=== PATIENT | female | born 1960 | race Caucasian/White ===

== ENCOUNTER 2018-01-20 10:42 | Outpatient (CLI) | payer OTHER ==
[2018-01-20 18:58] LABS: BASOPHILS % (AUTO) 0.8 %; EOSINOPHILS % (AUTO) 0.5 %; HGB - HEMOGLOBIN 14.5 g/dL (12.0-16.0); LYMPHOCYTES # (AUTO) 1.5 10^3/uL (1.5-3.5); LYMPHOCYTES % (AUTO) 32.9 %; MEAN CORPUSCULAR HEMOGLOBIN 38.6 pg (27.0-31.0); MEAN CORPUSCULAR VOLUME 113.7 fL (81.0-99.0); MEAN PLATELET VOLUME 8.7 fL (7.9-10.8); MONOCYTES # (AUTO) 0.5 10^3/uL (0.0-1.0); MONOCYTES % (AUTO) 10.5 %; NEUTROPHILS # (AUTO) 2.6 10^3/uL (1.5-6.6); NEUTROPHILS % (AUTO) 55.3 %; PLT - PLATELET COUNT 185 10^3/uL (130-450); RED BLOOD COUNT 3.76 10^6/uL (4.20-5.40); RED CELL DISTRIBUTION WIDTH 14.5 % (12.0-15.0); WHITE BLOOD COUNT 4.7 x10^3/uL (4.8-10.8)
[2018-01-20 19:20] LABS: ALBUMIN 3.8 g/dL (3.2-5.5); ALBUMIN/GLOBULIN RATIO 1.1 (1.0-2.2); ALKALINE PHOSPHATASE 67 IU/L (42-121); ALT ALANINE AMINOTRANSFERASE 41 IU/L (10-60); AST ASPARTATE AMINOTRANSFERASE 56 IU/L (10-42); BILIRUBIN,TOTAL 1.4 mg/dL (0.2-1.0); BUN - BLOOD UREA NITROGEN 7 mg/dL (6-20); CARBON DIOXIDE - CO2 23 mmol/L (21-32); CHLORIDE 105 mmol/L (101-111); CHOL/HDL RATIO 2.1 (<4.4); CHOLESTEROL 218 mg/dL; CREATININE 0.4 mg/dL (0.4-1.0); GFR - MDRD 163 (>89); GLUCOSE 100 mg/dL (70-100); HDL CHOLESTEROL 104 mg/dL; LDL CHOLESTEROL,CALCULATED 85 mg/dL; LDL/HDL RATIO 0.8 (<4.4); PLATELET ESTIMATE, MANUAL NORMAL (130-450,000) (NORMAL); PLATELET MORPHOLOGY NORMAL APPEARANCE (NORMAL); RBC MORPHOLOGY (MULTIPLE) 1+ ANISOCYTOSIS (NORMAL); SODIUM 139 mmol/L (135-145); TOTAL PROTEIN 7.2 g/dL (6.7-8.2); VLDL CHOLESTEROL 29 mg/dL
[2018-01-20 19:22] LABS: THYROID STIMULATING HORMONE 2.58 uIU/mL (0.34-5.60)
[2018-01-20 19:33] LABS: FOLATE 12.98 ng/mL (5.90 - >24.8)
== END 2018-01-20 10:43 | disposition home or self-care (01) ==
LOC: LAB.WCP 10:42
PROVIDERS: ATTEND Physician Assistant Medical
DX: Z00.00 Encounter for general adult medical examination without abnormal findings (principal); F32.9 Major depressive disorder, single episode, unspecified; Z98.84 Bariatric surgery status
CPT/HCPCS: 36415; 80053; 80061; 82306; 82607; 82746; 83721; 84443; 85025

== ENCOUNTER 2018-01-23 15:52 | Outpatient (CLI) | payer OTHER ==
--- NOTE | 2018-01-24 17:38 | Mammography Report ---
Reason: SCREENING MAMMO Procedure Date: 01/23/2018 Accession Number: [id number] / [id number] Procedure: SHAILESH - Screening Mammo Dig Bilat CPT Code: FULL RESULT: EXAM: Screening Mammo Dig Bilat DATE: 01/23/2018 4:15 PM CLINICAL HISTORY: 57 year-old nulliparous female with history of early menstrual period presents for screening. TECHNIQUE: Bilateral CC and MLO views were obtained. A cleavage view was also obtained. COMPARISON: 12/15/2014, 06/03/2009, 05/14/2008, 05/07/2007. FINDINGS: The breasts demonstrate scattered fibroglandular densities bilaterally. No suspicious masses, clustered microcalcifications, or regions of architectural distortion are identified. IMPRESSION: Negative examination RECOMMENDATION: Routine annual screening unless otherwise clinically indicated. BIRADS CATEGORY 1: Negative STANDARD QUALIFYING STATEMENTS: 1. This examination was not reviewed with the aid of Computer-Aided Detection (CAD). 2. A negative or benign imaging report should not delay biopsy if clinically suspicious findings are present. Consider surgical consultation if warrented. More than 5% of cancers are not identified by imaging. 3. Dense breasts may obscure an underlying neoplasm. 4. This examination was reviewed without the aid of 3D breast imaging (tomosynthesis).
== END 2018-01-23 15:53 | disposition home or self-care (01) ==
LOC: DI 15:52
DX: Z12.31 Encounter for screening mammogram for malignant neoplasm of breast (principal)
CPT/HCPCS: 77067

== ENCOUNTER → 2018-03-05 | Outpatient (CLI) | payer OTHER ==
[2018-03-05 19:08] LABS: ALBUMIN 3.6 g/dL (3.2-5.5); ALBUMIN/GLOBULIN RATIO 1.1 (1.0-2.2); BILIRUBIN,TOTAL 0.7 mg/dL (0.2-1.0); CALCIUM 8.8 mg/dL (8.5-10.3); CREATININE 0.5 mg/dL (0.4-1.0)
== END ==
LOC: LAB.WCP 08:00
PROVIDERS: ATTEND Physician Assistant Medical
DX: R74.8 Abnormal levels of other serum enzymes (principal)
CPT/HCPCS: 36415; 80053

== ENCOUNTER 2019-04-16 13:18 | Outpatient (CLI) | payer OTHER ==
--- NOTE | 2019-04-20 09:28 | Mammography Report ---
Reason: SCREENING MAMMO Procedure Date: 04/16/2019 Accession Number: [id number] / [id number] Procedure: SHAILESH - Screening Mammo w/Pradeep CPT Code: Final Report FULL RESULT: EXAM: Screening Mammo w/Pradeep DATE: 04/16/2019 2:04 PM CLINICAL HISTORY: Screening encounter. History of early menses and nulliparity. TECHNIQUE: (B) - Bilateral CC, laterally exaggerated CC, MLO views were obtained. COMPARISON: 01/23/2018 through 06/03/2009. PARENCHYMAL PATTERN: (A) - The breast(s) demonstrate(s) scattered fibroglandular densities. FINDINGS: There are no suspicious masses, calcifications, or areas of distortion. IMPRESSION: Negative examination. BI-RADS category 1. RECOMMENDATION: (ANNUAL) - Recommend routine annual screening mammography. BI-RADS CATEGORY: (1) - Negative. STANDARD QUALIFYING STATEMENTS: 1. This examination was not reviewed with the aid of Computer-Aided Detection (CAD). 2. A negative or benign imaging report should not preclude biopsy if clinically suspicious findings are present. 3. Dense breasts may obscure an underlying neoplasm. 4. This examination was reviewed with the aid of 3D breast imaging (tomosynthesis).
== END 2019-04-16 13:19 | disposition home or self-care (01) ==
LOC: DI 13:18
DX: Z12.31 Encounter for screening mammogram for malignant neoplasm of breast (principal)
CPT/HCPCS: 77063; 77067

== ENCOUNTER 2020-05-03 12:37 | Outpatient (CLI) | payer OTHER ==
--- NOTE | 2020-05-04 12:28 | Mammography Report ---
BILATERAL DIGITAL SCREENING MAMMOGRAM 3D/2D: 05/03/2020 CLINICAL: Routine screening. Comparison is made to exams dated: 04/16/2019 mammogram and 01/23/2018 mammogram - [facility]. There are scattered fibroglandular elements in both breasts. No significant masses, calcifications, or other findings are seen in either breast. There has been no significant interval change. IMPRESSION: NEGATIVE There is no mammographic evidence of malignancy. A 1 year screening mammogram is recommended. This exam was interpreted at Station ID: [id number]. NOTE: For mammograms, a report in lay terms will be sent to the patient. Approximately 15% of breast malignancies will not be visualized mammographically. In the management of a palpable breast mass, a negative mammogram must not discourage biopsy of a clinically suspicious lesion. Electronically Signed By: Aman Samayoa M.D. ar/penrad:05/03/2020 13:11:53 ACR BI-RADS Category 1: Negative 3341F PARENCHYMAL PATTERN: (A) - The breast(s) demonstrate(s) scattered fibroglandular densities. BI-RADS CATEGORY: (1) - 1 RECOMMENDATION: (ANNUAL) - Recommend routine annual screening mammography. [id number] 1 year screening LATERALITY: (B)
== END 2020-05-03 12:38 | disposition home or self-care (01) ==
LOC: DI.N 12:37
DX: Z12.31 Encounter for screening mammogram for malignant neoplasm of breast (principal)
CPT/HCPCS: 77067

== ENCOUNTER 2021-06-29 14:11 | Outpatient (CLI) | payer OTHER ==
--- NOTE | 2021-06-30 08:38 | Mammography Report ---
BILATERAL DIGITAL SCREENING MAMMOGRAM 3D/2D: 06/29/2021 CLINICAL: Routine screening. Comparison is made to exams dated: 05/03/2020 mammogram, 04/16/2019 mammogram, 01/23/2018 mammogram, mammogram, and 06/03/2009 mammogram - [facility]. The tissue of both breasts is predominantly fatty. No significant masses, calcifications, or other findings are seen in either breast. There has been no significant interval change. IMPRESSION: NEGATIVE There is no mammographic evidence of malignancy. A 1 year screening mammogram is recommended. This exam was interpreted at Station ID: [id number]. NOTE: For mammograms, a report in lay terms will be sent to the patient. Approximately 15% of breast malignancies will not be visualized mammographically. In the management of a palpable breast mass, a negative mammogram must not discourage biopsy of a clinically suspicious lesion. Electronically Signed By: Lexi aguilar/penrad:06/29/2021 16:13:23 ACR BI-RADS Category 1: Negative 3341F PARENCHYMAL PATTERN: (F) - The breast(s) demonstrate(s) diffuse fatty replacement. BI-RADS CATEGORY: (1) - 1 RECOMMENDATION: (ANNUAL) - Recommend routine annual screening mammography. [id number] 1 year screening LATERALITY: (B)
== END 2021-06-29 14:12 | disposition home or self-care (01) ==
LOC: DI.N 14:11
DX: Z12.31 Encounter for screening mammogram for malignant neoplasm of breast (principal)

== ENCOUNTER 2022-03-07 22:39 | Outpatient (CLI) | payer OTHER | END 2022-03-07 22:40 | disposition critical access hospital (66) | LOC: EMS 22:39 | DX: M54.50 Low back pain, unspecified (principal); M54.6 Pain in thoracic spine; I95.9 Hypotension, unspecified; R07.89 Other chest pain; W10.8XXA Fall (on) (from) other stairs and steps, initial encounter; Y93.01 Activity, walking, marching and hiking; Y92.098 Other place in other non-institutional residence as the place of occurrence of the external cause | CPT/HCPCS: A0425; A0427 ==

== ENCOUNTER 2022-03-07 22:52 | Observation (INO) | payer OTHER ==
--- NOTE | 2022-03-07 23:37 | ED Physician Documentation ---
PD HPI Fall - Stated complaint Stated Complaint: FALL/BACK PX - Chief complaint Chief Complaint: Trauma Ch/Bk - History obtained from History obtained from: Patient, Family (spouse (in ED at bedside)) - History of Present Illness Mechanism of injury: Slipped Fall distance: Standing position, Other (fell down 4-5 stairs) Where injury occurred: A house / apartment Timing - onset: Enter time (18:00) Injury(ies) location: Back Pain level now: 8 Quality of pain: Pain Associated symptoms: No: LOC, Amnesia, Neck pain, Weakness, Paresthesias Symptoms improve with: Rest Worsens with: Movement Contributing factors: No: Anticoagulated, Intoxicated Similar symptoms before: Has not had sx before Recently seen: Not recently seen - Additional information Additional information: ALBERT. 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 Denies head injury, denies LOC. She says she immediately had back pain when she fell, "my entire back" (per patient) including neck, upper, and lower back. She walked towards her car, intending to drive home, but she says she could not make it to the car because of the back pain, and had to sit down on the ground due to the pain. She then crawled back into the house. By this time, patient's was concerned due to patient not answering her cell phone and he thus drove to the friend's house and found patient in the house lying on the floor; she did not appear to be awake although she immediately responded to verbal. He called 911. He notes that patient has seemed confused since he found her on the floor and that she does not have any h/o AMS. Review of Systems Constitutional: denies: Fever, Chills, Fatigue, Sweats Cardiac: reports: Reviewed and negative Respiratory: reports: Reviewed and negative GI: reports: Reviewed and negative : denies: Dysuria, Frequency Musculoskeletal: reports: Neck pain, Back pain, Joint pain (bilateral knee pain (she says this is from crawling on the gravel driveway and not related to falling)) Neurologic: reports: Confused. denies: Generalized weakness, Focal weakness, Numbness, Headache, Head injury, LOC PD PAST MEDICAL HISTORY - Past Medical History Past Medical History: No - Past Surgical History General: Cholecystectomy - Present Medications Home Medications: Ambulatory Orders Medication Instructions Recorded Confirmed No Known Home Medications 03/07/22 03/07/22 - Allergies Allergies/Adverse Reactions: Allergies Allergy/AdvReac Type Severity Reaction Status Date / Time No Known Drug Allergies Allergy Verified 03/07/22 23:02 PD ED PE NORMAL - Vitals Vital signs reviewed: Yes - General General: No acute distress, Well developed/nourished, Other (awake, alert, oriented to time, person but thinks she is in [place]) - HEENT HEENT: Atraumatic, PERRL, EOMI, Moist mucous membranes - Neck Neck: Supple, no meningeal sign - Cardiac Cardiac: RRR, No murmur - Respiratory Respiratory: No respiratory distress, Clear bilaterally - Abdomen Abdomen: Soft, Non tender, Non distended - Back Back: Other (TTP thoracic and lumbar midline without step off or echymosis) - Extremities Extremities: No deformity, No tenderness to palpate, Normal ROM s pain, No edema, Other (echymosis bilateral knee (anterior) with mild swelling (L>R)) - Neuro Neuro: front end developer 2-12 intact, No motor deficit, No sensory deficit, Normal speech Eye Opening: Spontaneous Motor: Obeys Commands Verbal: Confused GCS Score: 14 - Psych Psych: Normal mood, Normal affect PD ED PE EXPANDED - Eyes Eyes: Scleral icterus Results - Vitals Vitals: Vital Signs - 24 hr 03/07/22 03/08/22 03/08/22 22:55 00:49 02:00 Temperature 35.9 C L Heart Rate 103 H 91 95 Heart Rate [ Sitting] Heart Rate [ Standing] Heart Rate [ Supine] Respiratory 30 H 24 18 Rate Blood Pressure 95/70 96/86 H 101/68 Blood Pressure [Sitting] Blood Pressure [Standing] Blood Pressure [Supine] O2 Saturation 95 100 03/08/22 03/08/22 03/08/22 03:50 05:00 06:44 Temperature Heart Rate 92 90 96 Heart Rate [ Sitting] Heart Rate [ Standing] Heart Rate [ Supine] Respiratory 28 H 25 H 20 Rate Blood Pressure 96/75 92/69 91/62 Blood Pressure [Sitting] Blood Pressure [Standing] Blood Pressure [Supine] O2 Saturation 98 100 100 03/08/22 03/08/22 03/08/22 08:01 08:59 10:00 Temperature Heart Rate 93 90 Heart Rate [ 95 Sitting] Heart Rate [ 110 H Standing] Heart Rate [ 100 Supine] Respiratory 20 26 H Rate Blood Pressure 82/63 L 86/61 L Blood Pressure 91/65 [Sitting] Blood Pressure 78/63 L [Standing] Blood Pressure 93/68 [Supine] O2 Saturation 100 Oxygen O2 Source Room air - EKG (time done) #1 Rate: Rate (enter#) Rhythm: NSR [place]: LAD QRS: Low voltage Ischemia: Normal ST segments, Q waves (III, AVF) Other comments: Other comments (diffuse artifact) #2 Rate: Rate (enter#) (95) Rhythm: NSR [place]: LAD Intervals: Normal PA QRS: Low voltage Ischemia: Q waves (III, aVF) - Labs Labs: Laboratory Tests 03/07/22 03/07/22 03/07/22 23:24 23:24 23:24 WBC 11.4 H RBC 3.54 L Hgb 14.2 Hct 40.3 MCV 113.8 H MCH 40.1 H MCHC 35.2 RDW 12.5 Plt Count 80 L MPV 11.6 H Neut # (Auto) 10.6 H Lymph # (Auto) 0.4 L [place] # (Auto) 0.3 Eos # (Auto) 0.0 Baso # (Auto) 0.0 Absolute Nucleated RBC 0.02 Nucleated RBC % 0.2 Manual Slide Review Indicated WBC Morphology NORMAL APPEARANCE Platelet Estimate DECREASED (<130,000) Platelet Morphology NORMAL APPEARANCE RBC Morph Micro Appear 1+ MACROCYTOSIS PT INR Sodium 133 L Potassium 3.5 Chloride 94 L Carbon Dioxide 19 L Anion Gap 20.0 H BUN 16 Creatinine 0.8 Estimated GFR (MDRD) 72 L Glucose 116 H Lactic Acid Calcium 8.8 Total Bilirubin 8.4 H AST 285 H ALT 97 H Alkaline Phosphatase 132 H Ammonia Total Creatine Kinase Troponin I High Sens 5208.2 H* Total Protein 6.2 L Albumin 2.9 L Globulin 3.3 Albumin/Globulin Ratio 0.9 L Lipase 322 H Urine Color Urine Clarity Urine pH Ur Specific [place] Urine Protein Urine Glucose (UA) Urine Ketones Urine Occult Blood Urine Nitrite Urine Bilirubin Urine Urobilinogen Ur Leukocyte Esterase Urine RBC Urine WBC Ur Squamous Epith Cells Urine Bacteria Ur Microscopic Review Urine Culture Comments Nasal Adenovirus (PCR) Nasal B. parapertussis DNA (PCR) Nasal Coronavir 229E PCR Nasal Coronavir HKU1 PCR Nasal Coronavir NL63 PCR Nasal Coronavir OC43 PCR Nasal Enterovir/Rhinovir PCR Nasal Influenza B PCR Nasal Influenza A PCR Nasal Parainfluen 1 PCR Nasal Parainfluen 2 PCR Nasal Parainfluen 3 PCR Nasal Parainfluen 4 PCR Nasal RSV (PCR) Nasal B.pertussis DNA PCR Nasal C.pneumoniae (PCR) Owen Human Metapneumo PCR Nasal M.pneumoniae (PCR) Nasal SARS-CoV-2 (PCR) Urine Opiates Screen Ur Oxycodone Screen Urine Methadone Screen Ur Propoxyphene Screen Ur Barbiturates Screen Ur Tricyclics Screen Ur Phencyclidine Scrn Ur Amphetamine Screen U Methamphetamines Scrn U Benzodiazepines Scrn Urine Cocaine Screen U Cannabinoids Screen Ethyl Alcohol 03/07/22 03/08/22 03/08/22 23:24 04:19 04:19 WBC RBC Hgb Hct MCV MCH MCHC RDW Plt Count MPV Neut # (Auto) Lymph # (Auto) [place] # (Auto) Eos # (Auto) Baso # (Auto) Absolute Nucleated RBC Nucleated RBC % Manual Slide Review WBC Morphology Platelet Estimate Platelet Morphology RBC Morph Micro Appear PT INR Sodium Potassium Chloride Carbon Dioxide Anion Gap BUN Creatinine Estimated GFR (MDRD) Glucose Lactic Acid Calcium Total Bilirubin AST ALT Alkaline Phosphatase Ammonia 30.8 Total Creatine Kinase 1758 H* Troponin I High Sens 4245.7 H* Total Protein Albumin Globulin Albumin/Globulin Ratio Lipase Urine Color Urine Clarity Urine pH Ur Specific [place] Urine Protein Urine Glucose (UA) Urine Ketones Urine Occult Blood Urine Nitrite Urine Bilirubin Urine Urobilinogen Ur Leukocyte Esterase Urine RBC Urine WBC Ur Squamous Epith Cells Urine Bacteria Ur Microscopic Review Urine Culture Comments Nasal Adenovirus (PCR) Nasal B. parapertussis DNA (PCR) Nasal Coronavir 229E PCR Nasal Coronavir HKU1 PCR Nasal Coronavir NL63 PCR Nasal Coronavir OC43 PCR Nasal Enterovir/Rhinovir PCR Nasal Influenza B PCR Nasal Influenza A PCR Nasal Parainfluen 1 PCR Nasal Parainfluen 2 PCR Nasal Parainfluen 3 PCR Nasal Parainfluen 4 PCR Nasal RSV (PCR) Nasal B.pertussis DNA PCR Nasal C.pneumoniae (PCR) Owen Human Metapneumo PCR Nasal M.pneumoniae (PCR) Nasal SARS-CoV-2 (PCR) Urine Opiates Screen Ur Oxycodone Screen Urine Methadone Screen Ur Propoxyphene Screen Ur Barbiturates Screen Ur Tricyclics Screen Ur Phencyclidine Scrn Ur Amphetamine Screen U Methamphetamines Scrn U Benzodiazepines Scrn Urine Cocaine Screen U Cannabinoids Screen Ethyl Alcohol 03/08/22 03/08/22 03/08/22 09:16 09:52 10:21 WBC RBC Hgb Hct MCV MCH MCHC RDW Plt Count MPV Neut # (Auto) Lymph # (Auto) [place] # (Auto) Eos # (Auto) Baso # (Auto) Absolute Nucleated RBC Nucleated RBC % Manual Slide Review WBC Morphology Platelet Estimate Platelet Morphology RBC Morph Micro Appear PT INR Sodium Potassium Chloride Carbon Dioxide Anion Gap BUN Creatinine Estimated GFR (MDRD) Glucose Lactic Acid 1.8 Calcium Total Bilirubin AST ALT Alkaline Phosphatase Ammonia Total Creatine Kinase Troponin I High Sens Total Protein Albumin Globulin Albumin/Globulin Ratio Lipase Urine Color DARK YELLOW Urine Clarity HAZY Urine pH 6.5 Ur Specific [place] <=1.005 Urine Protein TRACE Urine Glucose (UA) 100 H Urine Ketones 40 H Urine Occult Blood TRACE-INTA Urine Nitrite POSITIVE H Urine Bilirubin NEGATIVE Urine Urobilinogen >=8.0 H Ur Leukocyte Esterase TRACE H Urine RBC 0-5 Urine WBC 0-3 Ur Squamous Epith Cells MOD Squamous H Urine Bacteria Few Ur Microscopic Review INDICATED Urine Culture Comments NOT INDICATED Nasal Adenovirus (PCR) Nasal B. parapertussis DNA (PCR) Nasal Coronavir 229E PCR Nasal Coronavir HKU1 PCR Nasal Coronavir NL63 PCR Nasal Coronavir OC43 PCR Nasal Enterovir/Rhinovir PCR Nasal Influenza B PCR Nasal Influenza A PCR Nasal Parainfluen 1 PCR Nasal Parainfluen 2 PCR Nasal Parainfluen 3 PCR Nasal Parainfluen 4 PCR Nasal RSV (PCR) Nasal B.pertussis DNA PCR Nasal C.pneumoniae (PCR) [place] Human Metapneumo PCR Nasal M.pneumoniae (PCR) Nasal SARS-CoV-2 (PCR) Urine Opiates Screen Ur Oxycodone Screen Urine Methadone Screen Ur Propoxyphene Screen Ur Barbiturates Screen Ur Tricyclics Screen Ur Phencyclidine Scrn Ur Amphetamine Screen U Methamphetamines Scrn U Benzodiazepines Scrn Urine Cocaine Screen U Cannabinoids Screen Ethyl Alcohol < 5.0 03/08/22 03/08/22 03/08/22 10:21 10:41 10:47 WBC RBC Hgb Hct MCV MCH MCHC RDW Plt Count MPV Neut # (Auto) Lymph # (Auto) [place] # (Auto) Eos # (Auto) Baso # (Auto) Absolute Nucleated RBC Nucleated RBC % Manual Slide Review WBC Morphology Platelet Estimate Platelet Morphology RBC Morph Micro Appear PT 12.9 H INR 1.2 Sodium Potassium Chloride Carbon Dioxide Anion Gap BUN Creatinine Estimated GFR (MDRD) Glucose Lactic Acid Calcium Total Bilirubin AST ALT Alkaline Phosphatase Ammonia Total Creatine Kinase Troponin I High Sens Total Protein Albumin Globulin Albumin/Globulin Ratio Lipase Urine Color Urine Clarity Urine pH Ur Specific [place] Urine Protein Urine Glucose (UA) Urine Ketones Urine Occult Blood Urine Nitrite Urine Bilirubin Urine Urobilinogen Ur Leukocyte Esterase Urine RBC Urine WBC Ur Squamous Epith Cells Urine Bacteria Ur Microscopic Review Urine Culture Comments Nasal Adenovirus (PCR) NOT DETECTED Nasal B. parapertussis DNA (PCR) NOT DETECTED Nasal Coronavir 229E PCR NOT DETECTED Nasal Coronavir HKU1 PCR NOT DETECTED Nasal Coronavir NL63 PCR NOT DETECTED Nasal Coronavir OC43 PCR NOT DETECTED Nasal Enterovir/Rhinovir PCR NOT DETECTED Nasal Influenza B PCR NOT DETECTED Nasal Influenza A PCR NOT DETECTED Nasal Parainfluen 1 PCR NOT DETECTED Nasal Parainfluen 2 PCR NOT DETECTED Nasal Parainfluen 3 PCR NOT DETECTED Nasal Parainfluen 4 PCR NOT DETECTED Nasal RSV (PCR) NOT DETECTED Nasal B.pertussis DNA PCR NOT DETECTED Nasal C.pneumoniae (PCR) NOT DETECTED [place] Human Metapneumo PCR NOT DETECTED Nasal M.pneumoniae (PCR) NOT DETECTED Nasal SARS-CoV-2 (PCR) NOT DETECTED Urine Opiates Screen NEGATIVE Ur Oxycodone Screen NEGATIVE Urine Methadone Screen NEGATIVE Ur Propoxyphene Screen NEGATIVE Ur Barbiturates Screen NEGATIVE Ur Tricyclics Screen NEGATIVE Ur Phencyclidine Scrn NEGATIVE Ur Amphetamine Screen NEGATIVE U Methamphetamines Scrn NEGATIVE U Benzodiazepines Scrn NEGATIVE Urine Cocaine Screen NEGATIVE U Cannabinoids Screen NEGATIVE Ethyl Alcohol - Rads (name of study) CTH Radiology: Prelim report reviewed, See rad report CT cervical spine Radiology: Prelim report reviewed, See rad report CT T/L/S spine Radiology: Prelim report reviewed, See rad report CT A/P with IV contrast Radiology: Prelim report reviewed, See rad report chest xray Radiology: Prelim report reviewed, See rad report PD MEDICAL DECISION MAKING - ED course Complexity details: reviewed results, re-evaluated patient, considered differential, d/w patient, d/w family ED course: Patient is pleasant and conversant, only c/o neck and back pain. ED RN says gladis calvont was having VH (was describing birds she was seeing in the room); I was not in the room at the time. When I ask if she has a primary care provider, she says she is looking to establish with one "but not here, on [facility]". I ask where she thinks she is and she says she is in [place], "but I live on [facility]". She is surprised when I tell her she is on [facility] right now. Patient's says he has noted confusion since he found her on the floor at the friend's house [place] and that this is entirely new for her (confusion). She is icteric and found to have bilirubin 8.4 with AST 285, ALT 97, lipase 322. We discussed alcohol intake, and she indicates she used to be a daily drinker though only at night, and that she cut down dramatically approximately a year ago ( confirms this; she says she only drinks one or two glasses of wine twice per week on an average week). She says she has never been aware/told of abnormal liver tests. She has not seen a doctor in years (she says approximately 3 years, says maybe closer to 5 years). She has consistently low systolic blood pressures without improvement with IV fluids; sometimes her diastolic blood pressures would also be low but frequently she would have normal DBP and thus map of upper 60s. When she first arrived, EMS reported possible syncope and thus a syncope workup was entered by ED RN, which included EKG and troponin. The EKG does not have concerning findings (although artifact is present, it does not preclude most of the relevant interpretation), and a repeat EKG is without artifact and again does not have concerning findings such as ST abnormalities or rhythm abnormalities. Her hs-cTn is 5208, with repeat a few hours later of 4245. She consistently denies any chest pain/pressure/tightness/discomfort. CT A/P shows peripancreatic edema suspicious for acute pancreatitis; she has no abdominal pain nor tenderness. There are no acute findings on CTH, CT cervical spine, CT TLS spine, chest xray. She remains confused during ED stay. Late in stay, I discussed with her and that we would give more IV fluids for her low blood pressures, and she thanks me and says she has decided she will "stay another two days". When I ask where, she says "well, here." I explain that more tests are pending to determine if she would require/benefit inpatient stay, and she again thanks me for e xplaining, and then says "so I can talk to the other person and stay today and then maybe come back tomorrow". Departure - Departure Disposition: ED Place in Observation Clinical Impression: Altered mental status Qualifiers: Altered mental status type: disorientation Qualified Code(s): R41.0 - Disorientation, unspecified Hypotension Qualifiers: Hypotension type: unspecified hypotension type Qualified Code(s): I95.9 - Hypotension, unspecified Condition: Stable Discharge Date/Time: 03/08/22 13:06
[2022-03-07 23:55] LABS: ALBUMIN 2.9 g/dL (3.2-5.5); ALBUMIN/GLOBULIN RATIO 0.9 (1.0-2.2); BILIRUBIN,TOTAL 8.4 mg/dL (0.2-1.0); CALCIUM 8.8 mg/dL (8.5-10.3); CREATININE 0.8 mg/dL (0.4-1.0); POTASSIUM 3.5 mmol/L (3.5-5.0); TOTAL PROTEIN 6.2 g/dL (6.7-8.2)
[2022-03-07 23:56] LABS: BASOPHILS % (AUTO) 0.3 %; HCT - HEMATOCRIT 40.3 % (37.0-47.0); HGB - HEMOGLOBIN 14.2 g/dL (12.0-16.0); LYMPHOCYTES # (AUTO) 0.4 10^3/uL (1.5-3.5); LYMPHOCYTES % (AUTO) 3.4 %; MEAN CORPUSCULAR HEMOGLOBIN 40.1 pg (27.0-31.0); MEAN CORPUSCULAR HGB CONC 35.2 g/dL (32.0-36.0); MEAN CORPUSCULAR VOLUME 113.8 fL (81.0-99.0); MEAN PLATELET VOLUME 11.6 fL (7.9-10.8); MONOCYTES # (AUTO) 0.3 10^3/uL (0.0-1.0); NEUTROPHILS # (AUTO) 10.6 10^3/uL (1.5-6.6); NEUTROPHILS % (AUTO) 92.6 %; NRBC ABSOLUTE COUNT (AUTO) 0.02 x10^3/uL; NUCLEATED RED BLOOD CELLS AUTO 0.2 /100WBC; PLT - PLATELET COUNT 80 10^3/uL (130-450); RED BLOOD COUNT 3.54 10^6/uL (4.20-5.40); RED CELL DISTRIBUTION WIDTH 12.5 % (12.0-15.0); WHITE BLOOD COUNT 11.4 x10^3/uL (4.8-10.8)
[2022-03-07 23:58] LABS: SLIDE REVIEW? Indicated
[2022-03-07] MEDS ORDERED: fentaNYL 100 MCG/2 ML VIAL IVP STA (23:59)
[2022-03-07] MEDS ORDERED: SODIUM CHLORIDE 0.9% 500 ML IV STA (23:59)
[2022-03-08 00:12] LABS: PLATELET ESTIMATE, MANUAL DECREASED (<130,000) (NORMAL); PLATELET MORPHOLOGY NORMAL APPEARANCE (NORMAL); RBC MORPHOLOGY (MULTIPLE) 1+ MACROCYTOSIS (NORMAL); WBC MORPHOLOGY (MULTIPLE) NORMAL APPEARANCE (NORMAL)
[2022-03-08] MEDS ORDERED: ONDANSETRON 4 MG/2 ML VIAL IVP STA (00:26)
--- NOTE | 2022-03-08 00:58 | CT Report ---
PROCEDURE: HEAD WO INDICATIONS: fall, AMS (resolved) TECHNIQUE: Noncontrast 4.5 mm thick angled axial sections acquired from the foramen magnum to the vertex. For r adiation dose reduction, the following was used: automated exposure control, adjustment of mA and/or kV according to patient size. COMPARISON: None. FINDINGS: Image quality: There is metallic streak artifact related to patient's dental hardware. CSF spaces: There is mild to moderate cerebral volume loss with prominence of the ventricles and sul ci. Basal cisterns are patent. No extra-axial fluid collections. Brain: No intracranial hemorrhage, mass, or mass effect. [place]-white matter interface is preserved. T here are subcortical and periventricular white matter hypodensities consistent with mild chronic smal l vessel ischemic changes. Skull and face: Calvarium and visualized facial bones are intact, without suspicious lesions. Sinuses: Visualized sinuses and mastoids are clear. IMPRESSION: 1. No acute intracranial abnormality. 2. Mild to moderate cerebral volume loss and mild chronic white matter small vessel ischemic changes. Reviewed by: Garrett Johnson MD on 03/08/2022 12:57 AM PST Approved by: Garrett Johnson MD on 03/08/2022 12:57 AM PST Station ID: [id number]
--- NOTE | 2022-03-08 01:17 | CT Report ---
PROCEDURE: CERVICAL SPINE WO INDICATIONS: fall, neck pain TECHNIQUE: Noncontrast 3 mm thick sections acquired from the skull base to the T4 level. Sagittal and coronal r eformats were then constructed. For radiation dose reduction, the following was used: automated exp osure control, adjustment of mA and/or kV according to patient size. COMPARISON: Concurrent CT of the thoracic spine. FINDINGS: Image quality: Excellent. Bones: No fractures or subluxation. There is straightening of the cervical lordosis. There is mild t o moderate degenerative disc disease within the mid and lower cervical spine. Mild to moderate multil evel facet arthropathy also demonstrated throughout the cervical spine. Visualized superior ribs are intact. Soft tissues: Prevertebral soft tissues are normal in thickness. No paravertebral hematomas. No ap ical pneumothoraces. There are confluent ground glass opacities within the visualized left upper lobe anteriorly. IMPRESSION: 1. No fracture or subluxation in the cervical spine. 2. Confluent right glass opacities within the visualized left upper lobe. The findings are nonspecifi c and the differential includes pulmonary contusions or pneumonia. Reviewed by: Garrett Johnson MD on 03/08/2022 1:16 AM PST Approved by: Garrett Johnson MD on 03/08/2022 1:16 AM PST Station ID: [id number]
--- NOTE | 2022-03-08 01:24 | CT Report ---
PROCEDURE: THORACIC SPINE WO INDICATIONS: fall, midline back pain/tenderness TECHNIQUE: Noncontrast 3 mm thick sections acquired through the region of interest in the thoracic spine. Sagit lisa and coronal reformats were then constructed. For radiation dose reduction, the following was used : automated exposure control, adjustment of mA and/or kV according to patient size. COMPARISON: None. FINDINGS: Image quality: Excellent. Bones: There is normal overall bony alignment. No acute vertebral body compression fractures. No s ubluxation. There is multilevel mild degenerative disc disease within the thoracic spine. The spinous processes appear intact. Visualized ribs demonstrate no acute fractures. There are 2 healed right po sterior rib fractures. No suspicious sclerotic or lytic bony lesions. Central spinal canal is of nor mal overall caliber. Soft tissues: No paravertebral masses or hematomas. Visualized lungs demonstrate patchy groundglass opacities within the bilateral upper lobes and left lower lobe with areas of confluence in the left upper lobe. There are small bilateral pleural effusions. Associated minimal compressive atelectasis i s demonstrated bilaterally. IMPRESSION: 1. No fracture or subluxation in the thoracic spine. 2. Bilateral patchy ground glass opacities with areas of confluence in the left upper lobe. Given the bilateral scattered distribution, the findings likely represent an infectious or inflammatory proces s, likely atypical pneumonia. Pulmonary contusions are less likely given the bilateral distribution. 3. Small bilateral pleural effusions. Reviewed by: Garrett Wells MD on 03/08/2022 1:23 AM [facility] Approved by: Garrett Wells MD on 03/08/2022 1:23 AM PST Station ID: [id number]
--- NOTE | 2022-03-08 01:32 | CT Report ---
PROCEDURE: LUMBAR SPINE WO INDICATIONS: fall, midline back pain/tenderness TECHNIQUE: Noncontrast 3 mm thick sections acquired from the T12 level to the sacrum. Sagittal and coronal refo rmats were constructed. For radiation dose reduction, the following was used: automated exposure co ntrol, adjustment of mA and/or kV according to patient size. COMPARISON: None. FINDINGS: Image quality: Excellent. Bones: There is normal bony alignment. No acute vertebral body compression fractures. No subluxatio n. No suspicious lytic or blastic bony lesions. Central spinal caliber is of normal overall caliber. No pars defects. T12-L1: Normal in appearance. L1-L2: Within normal limits. L2-L3: Minimal loss of disc height with a minimal disc bulge. There is mild facet joint arthropathy. There is minimal spinal canal narrowing. There is also mild right and minimal left neuroforaminal katie rowing. L3-L4: Mild loss of disc height with a minimal broad-based disc bulge eccentric to the left. There is minimal facet arthropathy. Findings contribute to mild spinal canal narrowing. There is also mild bi lateral neuroforaminal narrowing. L4-L5: Moderate loss of disc height with a small broad-based disc bulge. There is moderate facet arth ropathy and mild blunting of the fibular hypertrophy. Findings contribute to mild spinal canal narrow ing with suspected narrowing of the left lateral recess. There is mild to moderate right and moderate left neuroforaminal narrowing. L5-S1: There is minimal degenerative disc disease. No definite spinal canal or neuroforaminal narrowi ng. Soft tissues: No retroperitoneal masses or hematomas. Visualized aorta is normal in caliber. The vi sualized lung bases demonstrate small bilateral pleural effusions. The visualized liver demonstrates diffuse fatty infiltration. IMPRESSION: 1. No fracture or subluxation. 2. Multilevel degenerative changes within the lumbar spine as described. No high-grade spinal canal o r neuroforaminal narrowing. Mild spinal canal narrowing demonstrated at L4-5. 3. Multilevel neuroforaminal narrowing also demonstrated including mild to moderate right and moderat e left neuroforaminal narrowing at L4-5. Reviewed by: Garrett Wells MD on 03/08/2022 1:30 AM PST Approved by: Garrett Wells MD on 03/08/2022 1:30 AM PST Station ID: [id number]
[2022-03-08] MEDS ORDERED: SODIUM CHLORIDE 0.9% 500 ML IV STA (04:14)
[2022-03-08] MEDS ORDERED: iohexoL-300 100 ML VIAL ONE (04:15)
[2022-03-08] MEDS ORDERED: iohexoL-300 100 ML VIAL IVP ONE (05:22)
[2022-03-08] MEDS ORDERED: SODIUM CHLORIDE 0.9% 1,000 ML IV STA (08:01)
--- NOTE | 2022-03-08 09:22 | XRAY Report ---
PROCEDURE: Chest 1 View X-Ray INDICATIONS: fall, AMS TECHNIQUE: One view of the chest was acquired. COMPARISON: None. FINDINGS: Surgical changes and devices: None. Lungs and pleura: No pleural effusions or pneumothorax. Lungs are clear. Mediastinum: Mediastinal contours appear normal. Heart size is normal. Bones and chest wall: No suspicious bony lesions. Overlying soft tissues appear unremarkable. IMPRESSION: 1. Low lung volumes with vascular crowding. 2. No evidence for active disease in the chest. Reviewed by: Miguel Bland MD on 03/08/2022 9:20 AM [facility] Approved by: Miguel Bland MD on 03/08/2022 9:20 AM [facility] Station ID: [id number]
[2022-03-08 10:30] LABS: MUDS CUTOFF CONCENTRATIONS CUTOFF CONC BELOW:
[2022-03-08 10:36] LABS: GLUCOSE, URINE (UA) 100 mg/dL (NEGATIVE); KETONES,URINE (UA) 40 mg/dL (NEGATIVE); LEUKOCYTE ESTERASE, URINE TRACE (NEGATIVE); NITRITE,URINE POSITIVE (NEGATIVE); OCCULT BLOOD,URINE TRACE-INTA (NEGATIVE); PH,URINE 6.5 PH (5.0-7.5); PROTEIN,URINE TRACE mg/dL (NEGATIVE); UROBILINOGEN,URINE >=8.0 E.U./dL (NORMAL)
[2022-03-08 10:43] LABS: BILIRUBIN,URINE NEGATIVE (NEGATIVE); ICTOTEST,URINE NEGATIVE
[2022-03-08 10:44] LABS: CLARITY,URINE HAZY (CLEAR)
[2022-03-08 10:49] LABS: AMPHETAMINE SCREEN,URINE NEGATIVE (NEGATIVE); BARBITURATE SCREEN,UR NEGATIVE (NEGATIVE); BENZODIAZEPINES SCREEN, URINE NEGATIVE (NEGATIVE); COCAINE SCREEN URINE NEGATIVE (NEGATIVE); METHADONE SCREEN, URINE NEGATIVE (NEGATIVE); METHAMPHETAMINES SCREEN, URINE NEGATIVE (NEGATIVE); OPIATE SCREEN, URINE NEGATIVE (NEGATIVE); OXYCODONE SCREEN, URINE NEGATIVE (NEGATIVE); PROPOXYPHENE SCREEN, URINE NEGATIVE (NEGATIVE); THC CANNABINOID SCREEN, URINE NEGATIVE (NEGATIVE); TRICYCLIC ANTIDEPRESSANT,URINE NEGATIVE (NEGATIVE)
[2022-03-08 10:50] LABS: BACTERIA,URINE Few /HPF (None Seen); RBC,URINE 0-5 /HPF (0-5); SQUAMOUS EPITHELIAL CELL,UR MOD Squamous (<= Few); WBC,URINE 0-3 /HPF (0-5)
--- NOTE | 2022-03-08 11:18 | CT Report ---
PROCEDURE: ABDOMEN/PELVIS W INDICATIONS: fall, abnormal LFTs, lipase, hypotension CONTRAST: Omni 300 100ml TECHNIQUE: After the administration of IV contrast, 5 mm thick sections acquired from the diaphragms to the symp hysis. 5 mm thick coronal and sagittal reformats were acquired. For radiation dose reduction, the f ollowing was used: automated exposure control, adjustment of mA and/or kV according to patient size. COMPARISON: None. FINDINGS: Image quality: Excellent. ABDOMEN: Lung bases: Small pleural effusions laterally. Groundglass infiltrates in the right middle lobe susp icious for pneumonia. Bibasilar atelectasis. Heart size is normal. Solid organs: Severe hepatic steatosis. Liver is normal in size. There is a 3 cm hyperdense nodule i n the posterior segment of the right hepatic lobe adjacent to the inferior vena cava, most likely foc al fat sparing. Spleen is normal in size and enhancement. Gallbladder is surgically absent. Biliary system is non dilated. Pancreas is edematous with peripancreatic stranding, consistent with acute pancreatitis. Pancreas enh ances normally. No adrenal nodules. Kidneys demonstrate normal size and enhancement, without hydronephrosis. Peritoneum and bowel: Postsurgical changes related to gastric bypass. Bowel loops demonstrate normal wall thickness and caliber. No free air. There is a small amount of fluid in the lesser sac. Nodes and vessels: No retroperitoneal or mesenteric adenopathy by size criteria. Aorta and inferior vena cava are normal in size. Miscellaneous: A fat-containing umbilical ventral hernia. PELVIS: Genitourinary: Bladder is contracted. Bladder wall is uniform in thickness. Miscellaneous: No inguinal hernias or adenopathy. Bones: No suspicious bony lesions. No vertebral body compression fractures. Degenerative changes i n lumbar spine. IMPRESSION: 1. Acute pancreatitis. No CT findings to suggest pancreatic necrosis. 2. Infiltrates in right middle lobe suspicious for pneumonia. 3. Small pleural effusions bilaterally. 4. Severe hepatic steatosis. There is a 3 cm hyperdense nodule in the posterior segment of the right hepatic lobe adjacent to intrahepatic IVC, most likely focal fat sparing. Ultrasound of liver is sugg ested for follow-up. No significant discrepancy with the preliminary interpretation. Reviewed by: Susie Jeong MD on 03/08/2022 11:16 AM PST Approved by: Susie Jeong MD on 03/08/2022 11:16 AM PST Station ID: [id number]
[2022-03-08] MEDS ORDERED: ONDANSETRON ODT 4 MG TABLET TL PRN (11:19)
[2022-03-08] MEDS ORDERED: SODIUM CHLORIDE FLUSH 0.9% 10 ML SYRINGE IVP PRN (11:19)
[2022-03-08] MEDS ORDERED: ONDANSETRON 4 MG/2 ML VIAL IVP PRN (11:19)
[2022-03-08 11:20] LABS: INR 1.2 (0.8-1.2); PT - PROTHROMBIN TIME 12.9 secs (9.9-12.6)
[2022-03-08 11:43] LABS: B. PARAPERTUSSIS- RESP PCR PAN NOT DETECTED; B. PERTUSSIS- RESP PCR PANEL NOT DETECTED; C. PNEUMONIAE- RESP PCR PANEL NOT DETECTED; CORONAVIRUS 229E-RESP PCR NOT DETECTED; CORONAVIRUS HKU1-RESP PCR NOT DETECTED; CORONAVIRUS NL63-RESP PCR NOT DETECTED; CORONAVIRUS OC43-RESP PCR NOT DETECTED; HUMAN METAPNEUMOVIRUS NOT DETECTED; INFLUENZA A- RESP PCR PANEL NOT DETECTED; INFLUENZA B - RESP PCR PANEL NOT DETECTED; M. PNEUMONIAE- RESP PCR PANEL NOT DETECTED; PARAINFLUENZA VIRUS 1 NOT DETECTED; PARAINFLUENZA VIRUS 2 NOT DETECTED; PARAINFLUENZA VIRUS 3 NOT DETECTED; PARAINFLUENZA VIRUS 4 NOT DETECTED; RHINOVIRUS/ENTEROVIRUS NOT DETECTED; RSV- RESP PCR PANEL NOT DETECTED; SARS-CoV-2 -RESP PCR PANEL NOT DETECTED
--- NOTE | 2022-03-08 15:08 | MRI Report ---
PROCEDURE: MRCP WO INDICATIONS: AMS, bili 8, pancreatitis CONTRAST: None TECHNIQUE: Coronal ultra fast SE through the abdomen, axial 2-D spoiled GE in- and [id number], and breath-hold T2 FSE with fat saturation through the biliary system and pancreas. Oblique coronal and axial thin- slice ultra fast SE, radial thick-slab ultra fast SE centered on the extrahepatic bile ducts. COMPARISON: CT abdomen pelvis same day. FINDINGS: Image quality: Suboptimal due to motion artifact and changes of acute pancreatitis. Images are denoted as (series #/image #). Pancreas and biliary system: Intra- and extra-hepatic biliary ducts are non dilated. Peripancreatic fluid and edema typical of acute pancreatitis as seen on recent CT. No dilation of the main pancreatic duct demonstrated. Gallbladder is surgically absent. Other solid organs: There is diffuse hepatic signal loss on [id number] images compatible with hepat ic steatosis. 3.0 cm indeterminate T2 hyperintense lesion hepatic segment 7 (4/13). Spleen is normal size, but T2 hypointense and hypointense on T1 in phase images. No adrenal nodules. Both kidneys are normal in size, without hydronephrosis. vessels: Aorta and inferior vena cava are normal in size. Bowel and peritoneum: Unenhanced bowel loops are normal in caliber. Postsurgical changes of Jake-en- Y gastric bypass. Lung bases: Bilateral pleural effusions. IMPRESSION: 1. No biliary ductal dilation or evidence of choledocholithiasis. 2. Findings of acute pancreatitis as seen on same-day CT. 3. Hepatic steatosis. 4. Indeterminate 3 cm lesion in hepatic segment 7. Further evaluation with liver protocol MRI or CT i s recommended. Could perform at the time of follow-up for pancreatitis or sooner/later as clinically indicated. 5. Signal characteristics of the spleen raising the possibility of iron deposition. Unclear if iron d eposition present within the liver or pancreas, steatosis or pancreatitis could be confounding. [facility] [place] correlation for hemochromatosis or other metabolic disorders may be helpful. Reviewed by: Aman Eddy MD on 03/08/2022 3:07 PM PST Approved by: Aman Eddy MD on 03/08/2022 3:07 PM PST Station ID: [id number]
[2022-03-08 15:50] LABS: BASOPHILS % (AUTO) 0.3 %; HCT - HEMATOCRIT 37.6 % (37.0-47.0); HGB - HEMOGLOBIN 13.2 g/dL (12.0-16.0); LYMPHOCYTES # (AUTO) 0.6 10^3/uL (1.5-3.5); LYMPHOCYTES % (AUTO) 5.4 %; MEAN CORPUSCULAR HEMOGLOBIN 40.1 pg (27.0-31.0); MEAN CORPUSCULAR HGB CONC 35.1 g/dL (32.0-36.0); MEAN CORPUSCULAR VOLUME 114.3 fL (81.0-99.0); MEAN PLATELET VOLUME 11.1 fL (7.9-10.8); MONOCYTES # (AUTO) 0.5 10^3/uL (0.0-1.0); MONOCYTES % (AUTO) 4.3 %; NEUTROPHILS # (AUTO) 10.1 10^3/uL (1.5-6.6); NEUTROPHILS % (AUTO) 88.7 %; NRBC ABSOLUTE COUNT (AUTO) 0.02 x10^3/uL; NUCLEATED RED BLOOD CELLS AUTO 0.2 /100WBC; PLT - PLATELET COUNT 59 10^3/uL (130-450); RED BLOOD COUNT 3.29 10^6/uL (4.20-5.40); RED CELL DISTRIBUTION WIDTH 12.9 % (12.0-15.0); WHITE BLOOD COUNT 11.4 x10^3/uL (4.8-10.8)
[2022-03-08 16:05] LABS: ALBUMIN 2.6 g/dL (3.2-5.5); ALBUMIN/GLOBULIN RATIO 0.9 (1.0-2.2); BILIRUBIN,TOTAL 6.4 mg/dL (0.2-1.0); CALCIUM 8.4 mg/dL (8.5-10.3); CREATININE 0.8 mg/dL (0.4-1.0); POTASSIUM 3.2 mmol/L (3.5-5.0); TOTAL PROTEIN 5.6 g/dL (6.7-8.2)
[2022-03-08] MEDS: oxyCODONE 5 MG TABLET PO PRN ×2 (16:22→21:46)
[2022-03-08 16:25] LABS: PLATELET ESTIMATE, MANUAL DECREASED (<130,000) (NORMAL); PLATELET MORPHOLOGY NORMAL APPEARANCE (NORMAL); SLIDE REVIEW? Indicated
[2022-03-08] MEDS: SODIUM CHLORIDE FLUSH 0.9% 10 ML SYRINGE IVP SCH (17:42)
--- NOTE | 2022-03-08 18:01 | HISTORY & PHYSICAL EXAMINATION ---
History and Physical - History and Physical Chief complaint: Fall with inability to ambulate and confusion Admitted from Home History obtained from patient and her and Dr. Hoyt. Case discussed with Dr. Hoyt. History of present illness She is a 61-year-old female who has no major medical illnesses and regards her self is relatively healthy. She has been in the process of trying to establish yourself with a primary care provider but has been dragging her feet on this issue because she just does not want a good [place] anymore. The reason she gives is that there is "too many people in [place]" and those people would be spreading COVID or other illnesses. Ever since the COVID pandemic she has become fearful about being in places with a lot of people in it. She started drinking in her 20s. May be drank 1 glass of wine 2 or 3 times a week. She did that all of her life with no history of alcohol abuse until the pandemic. Starting in 2019 it escalated to drinking a bottle of wine a night. In the last few months she has been decreasing her use and is down to about 4 glasses of wine a week. She never had withdrawal, black stools, nausea. She has a lot of problems with sleeping now. She is dog sitting for friends and went over to walk the the dogs and feed them this morning. As she was walking back outside the house, she slipped and fell and landed on her backside. She said it was a solid thump. This is the first time she is ever fallen her life so it was quite shocking to her. She denies syncope, loss of consciousness. She says that she was able to get up without any assistance, and walk to her car. She thought she was going to be able to get to her phone and get in the car and then drive home. But on the way to the car her legs suddenly became "stiff as marble". Her legs felt like they did not want a walk anymore, and she fell to the ground again. This time she fell next to her car. She was able to roll over onto her belly, and she army crawled back up the driveway to the [place]. It was a gravel driveway so quite painful on her knees and elbows. Took her about 2 and half hours to get back in the house where she collapsed on the floor. Her had been trying to call and find her and could not, so he drove to their friend's house and found her down in the house. She was not unconscious, she was verbal, but almost unable to speak in her coldness and her stiffness. She was brought to the emergency room around 11:00 last night. Temperature was 35.9. Heart rate 103. Blood pressure 95/70 respirations 30 and she was 95% on room air. Throughout the night in the emergency room she has been hypotensive in the 80s or 90s. Temperature is gradually improved but she is 36.6. She was an elderly female, very slow to respond. . Psychomotor slowing that seemed out of proportion to a simple fall with no blow to the head. She was complaining of diffuse neck pain, back pain, knee pain from crawling on the driveway. She felt like her back was locked in a spasm. But she was awake and alert. Clear lungs and benign belly. Sodium was 133. Anion gap 20. BUN and creatinine normal. Random glucose 116. Total bilirubin 8.4. AST 285, ALT 97 and alk phos 132. Troponin was 5208. CPK 1758. Ammonia level 30.8. Repeat troponin a few hours later was 4245. Lactic acid was 1.8. White cell count had an elevated amount of 11.4. Hemoglobin normal, platelets 80. Extensive imaging was done including head CT, cervical spine CT, thoracic spine CT, lumbar spine CT, abdomen pelvis CT, and chest x-ray. The pancreas was edematous with peripancreatic stranding consistent with acute pancreatitis. She has small pleural effusions bilaterally. Severe hepatic steatosis. A fat- containing umbilical hernia. There were no fractures. She used to have severe morbid obesity and was over 300 pounds. With gastric bypass 16 years ago she is lost quite a bit of weight. Her review of systems is negative for glaucoma or cataracts. She has no problems with chewing or swallowing. She denies cough, wheezing, chest congestion. She denies chest pain, palpitations, edema orthopnea. If she is going to say that her cardiovascular endurance is reduced, she says it is good to be "because I am out of shape" and not because of lung or heart problems. She does not have reflux, epigastric pain. She does have quite a bit of dumping with diarrhea if she eats a large meal. No blood in her stool. Weight has been stable for the last 2 years. She has never had pregnancies. She does have urinary incontinence and was getting worse over the last year. If she does not consciously think about urination, and waits too long, she will become incontinent. She denies urgency, frequency, flank pain. She has osteoarthritic complaints in the knees, feet. Her hands are stiff in the morning and it takes about 20 minutes to massage them and get them on stiff. She used to have carpal tunnel syndrome but when she retired that went away. She has had no new skin lesions, rashes. Depression an d anxiety is mild since the pandemic. But no suicidal ideations no hallucinations. More of a negative fixed thought process. And her nods when she says this. She denies polyuria, polydipsia, polyphagia. She denies syncope, seizures, memory loss. Past medical history: 1. Carpal tunnel syndrome when she was working 2. Morbid obesity treated with gastric bypass surgery 16 years ago 3. Osteoarthritis 4. G0, P0 No known drug allergies No medications Social history: She was born in [place]. 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 She has been to her for 30 years. They have no children. "I do not believe in children". She never smoked. Alcohol use/abuse is as above in HPI. She and her live in their own home. Family history: Mom is alive at 85 and has problems with diabetes Dad in his 70s of metastatic lung cancer 2 sisters. Problems with diabetes, obesity, hypertension, carpal tunnel syndrome are present. No children. Previous level of function: Completely independent without any use of durable medical equipment. She does not use a cane or walker. She cleans house, does laundry, pays bills, drives a car. The only thing that slows her down is being out of shape. CODE STATUS: DO NOT RESUSCITATE Physical exam: I am seeing the patient after she has been transferred from the ER to [facility]. She did not come to [facility] approximately 1 in the afternoon. Temperature is now 36.3. Heart rate 87. Blood pressure 96/64. Respirations 18. 97% on room air. She is 5 foot tall, 77 kg She is alert, oriented, white female who looks slightly older than stated age.. No acute distress, wearing glasses, at the bedside. Head and neck is without icterus. She has dry oral mucosa. No facial asymmetry and speech is slow but deliberate and normal. Neck is supple, no JVD Lungs are clear to auscultation percussion with diminished breath sounds at the bases. No discomfort with speaking to me Regular rate and rhythm, no murmurs. Abdomen is soft, nontender, obese, hypoactive bowel sounds, and an easily reducible umbilical hernia. She says she is uncomfortable with palpation of the epigastrium but not severe. No rebound or guarding. Extremities have mild osteoarthritic deformities of the distal interphalangeal joints but no clubbing cyanosis or edema. Range of motion is limited due to stiffness and she says muscle spasming from her fall. Neurologically she is alert and oriented to person place and time. She is following commands. Slow but lucid and intact speech pattern. No facial asymmetry. Cranial nerves II through XII appear intact. Handgrip strength is normal. Plantar and dorsiflexion of the feet are normal. She does wince and grimace with me rolling her over or trying to sit her up. She feels like her back "locks up on her" all the way from the T-spine down to her buttocks. Repeat blood work shows a sodium of 134. Potassium 3.2. Troponin is now 3080. Total bili is come down to 6.4. AST 227, ALT 82. Tox screen is negative for everything, ethyl alcohol less than 5 Assessment/plan 1. The main concern of the ER provider was out of the metabolic encephalopathy. That has improved from when she was in the ER to what I am seeing on [facility]. This woman is not intoxicated, but does have mild pancreatitis, and liver enzymes indicating alcoholic hepatitis and pancreatitis. I will attributed her encephalopathy to the shock of falling, the probable low-grade hypothermia, and the pain that she was in. It is not hepatic encephalopathy. She is not infected. She has not had a stroke. Plan: Observation status Hydration Continue to warm her up Continue to work-up the GI problems 2. Elevated liver enzymes. At this point my thinking is that she has cirrhosis and liver failure from alcohol abuse. Thrombocytopenia is present. Although she has cut back her drinking over the last few weeks if not months, and she had a significant abuse for close to 2 years. She has never gone through withdrawal. The only other thing I can think of is that her gastric bypass surgery may have affected the hepatobiliary anatomy. Gastric bypass is usually associated with getting an incidental cholecystectomy. I have ordered an MRCP. I will also be repeating her liver enzymes later on today. Bananna Bag will be ordered. 3. Evidence of pancreatitis. On examination and by history she is not describing abdominal pain, weight loss, but does describe diarrhea. the diarrhea is not new for her and associated with "dumping" since her gastric bypass. Of the causes of pancreatitis, my suspicion is that of alcoholic pancreatitis. At this time I will give her a diet, and observe for abdominal pain. Continue with IVF. 4. Hypotension. On review of systems and exam no evidence of severe congestive heart failure. Troponins are severely elevated but an EKG is normal and she gives no signs or symptoms of an [place]. I do not know if troponins cross-react with CK. I do not think she has an infection. Lactic acid is normal. She could be hypotensive due to the pancreatitis. She is already received approximately 2 and half liters in the ER. She will receive 1 more liter with the banana bag. 5. Elevated CK indicating some element of rhabdomyolysis. The BUN and creatinine are normal. There is no lactic acidosis. Other than hydration and monitoring no other intervention. I will check TSH tomorrow. She is in the middle of trying to find a doctor. But she is not looking very hard. [place]. [place] I would recommend that she get her self to place like [facility] or [facility]. Be referred to GI. I also, again, wonder if her gastric bypass surgery has any effect on this. 6. Back and leg pain. I cannot give her Tylenol. Will use Motrin and oxycodone. 7. Hospital issues: DVT prophylaxis will be JENNIFER orantes Due to the thrombocytopenia. Full CODE STATUS Attestation of the patient will be discharged within 96 hours
--- NOTE | 2022-03-08 18:34 | PHARMACY PROGRESS NOTE ---
- Best Possible Medication History Admit Date and Time: 03/08/22 1119 Processed by: Pharmacy Medication History completed: Yes Patient Interview: Pt interview ONLY source As the person ultimately responsible for medication therapy, providers are able to order a medication from an existing home medication list in [facility] via the "Reconcile Routine" prior to Confirmation of that medication by support dba. Such practice is discouraged except when the physician, in their clinical judgment, deems that a medical need exists for a medication without regard to previous use.
[2022-03-08] MEDS ORDERED: methocarbamoL 500 MG TABLET PO PRN (19:06)
[2022-03-08] MEDS: IBUPROFEN 600 MG TABLET PO SCH (20:29)
[2022-03-08] MEDS: NYSTATIN CREAM 15 GM TUBE TOP SCH (21:22)
[2022-03-09] MEDS: SODIUM CHLORIDE FLUSH 0.9% 10 ML SYRINGE IVP SCH ×3 (01:51→17:31)
[2022-03-09] MEDS: IBUPROFEN 600 MG TABLET PO SCH ×4 (01:52→20:39)
[2022-03-09 05:28] LABS: BASOPHILS % (AUTO) 0.2 %; HCT - HEMATOCRIT 33.5 % (37.0-47.0); HGB - HEMOGLOBIN 11.7 g/dL (12.0-16.0); LYMPHOCYTES # (AUTO) 1.3 10^3/uL (1.5-3.5); LYMPHOCYTES % (AUTO) 12.9 %; MEAN CORPUSCULAR HEMOGLOBIN 40.1 pg (27.0-31.0); MEAN CORPUSCULAR HGB CONC 34.9 g/dL (32.0-36.0); MEAN CORPUSCULAR VOLUME 114.7 fL (81.0-99.0); MEAN PLATELET VOLUME 11.4 fL (7.9-10.8); MONOCYTES # (AUTO) 0.4 10^3/uL (0.0-1.0); MONOCYTES % (AUTO) 4.3 %; NEUTROPHILS # (AUTO) 7.9 10^3/uL (1.5-6.6); NEUTROPHILS % (AUTO) 81.2 %; PLT - PLATELET COUNT 49 10^3/uL (130-450); RED BLOOD COUNT 2.92 10^6/uL (4.20-5.40); WHITE BLOOD COUNT 9.8 x10^3/uL (4.8-10.8)
[2022-03-09 05:39] LABS: SLIDE REVIEW? Indicated
[2022-03-09 05:44] LABS: ALBUMIN 2.1 g/dL (3.2-5.5); ALBUMIN/GLOBULIN RATIO 0.7 (1.0-2.2); BILIRUBIN,TOTAL 5.9 mg/dL (0.2-1.0); CALCIUM 8.1 mg/dL (8.5-10.3); CREATININE 0.6 mg/dL (0.4-1.0); POTASSIUM 3.3 mmol/L (3.5-5.0)
[2022-03-09 05:55] LABS: PLATELET ESTIMATE, MANUAL DECREASED (<130,000) (NORMAL)
[2022-03-09] MEDS ORDERED: POTASSIUM CHLORIDE 20 MEQ TABLET PO ONE (08:31)
[2022-03-09 08:51] LABS: MAGNESIUM 1.9 mg/dL (1.7-2.8); PHOSPHORUS 1.5 mg/dL (2.5-4.6)
[2022-03-09] MEDS ORDERED: MULTIVITAMIN 10 ML, THIAMINE INJ 100 MG, FOLIC ACID INJ 1 MG, POTASSIUM CHLORIDE INJ 20... IV SCH ×5 (09:00)
[2022-03-09] MEDS: NYSTATIN CREAM 15 GM TUBE TOP SCH ×2 (09:14→20:39)
[2022-03-09] MEDS: oxyCODONE 5 MG TABLET PO PRN (16:07)
--- NOTE | 2022-03-09 17:14 | PROVIDER PROGRESS NOTE ---
Progress Note March 09, 2022 5:11 PM has been at the bedside off and on with her. She has no appetite. She does have occasional diarrhea. When I explained to her that she has both liver failure from cirrhosis as well as pancreatitis on imaging and labs, she feels like her abdominal pain is no different than it usually is. Is not even pain. She describes it is just a grumbly nauseated stomach that she associates with her gastric bypass surgery. It is no different now than it was in the past. She denies fever or chills. Pain is her main complaint. She feels like her back is locked up and her hips and legs have locked up. But I cannot give her Tylenol due to her liver problems. And I hesitate to give her Motrin. I have given her Robaxin but she has not used it yet. Active Medications Multivitamins 10 ml/ Thiamine HCl 100 mg/ Folic Acid 1 mg/Potassium Chloride 20 meq/Dextrose/Sodium Chloride 1,021.2 mls @ 100 mls/hr IV DAILY [facility] Last Admin: 03/09/22 09:13 Dose: 100 mls/hr Ibuprofen (Ibuprofen 600 Mg Tablet) 600 mg PO Q6H [facility] Last Admin: 03/09/22 13:25 Dose: 600 mg Methocarbamol (Methocarbamol 500 Mg Tablet) 500 mg PO Q6HR PRN PRN Reason: Spasms Nystatin (Nystatin Cream 15 Gm Tube) 1 applic TOP BID [facility] Last Admin: 03/09/22 09:14 Dose: 1 applic Ondansetron HCl (Ondansetron Odt 4 Mg Tablet) 4 mg TL Q6HR PRN PRN Reason: Nausea / Vomiting Ondansetron HCl (Ondansetron 4 Mg/2 Ml Vial) 4 mg IVP Q6HR PRN PRN Reason: Nausea / Vomiting Oxycodone HCl (Oxycodone 5 Mg Tablet) 5 mg PO Q4HR PRN PRN Reason: Pain 5 to 7 Last Admin: 03/09/22 16:07 Dose: 5 mg Sodium Chloride (Sodium Chloride Flush 0.9% 10 Ml Syringe) 10 ml IVP PRN PRN PRN Reason: NEEDED PER PROVIDER ORDERS Sodium Chloride (Sodium Chloride Flush 0.9% 10 Ml Syringe) 10 ml IVP 0100,0900,1700 [facility] Last Admin: 03/09/22 09:14 Dose: 10 ml No Known Home Medications 03/07/22 Exam: Temperature is 36.5. Heart rate 89. Blood pressure 96/63. We are still not clear if this is an old chronic hypotension for her or new in the face of her liver and pancreas. There were no old records to compare to. Neck is supple Lungs are clear without any increased respiratory effort Regular rate and rhythm Abdomen is soft, hypoactive bowel sounds, mildly uncomfortable with palpation of the epigastrium and around the umbilicus but there is no true rebound, guarding, left upper quadrant pain or flank pain. Extremities without edema Neurologically she has a fatigued flat affect, it is almost too much for her to think about anything. After discussing with her she thinks she would like to stay another day because she does not feel safe to go home. Her fatigue and lack of mobility really frightens her. Assessment/plan 1. Metabolic encephalopathy that has resolved. I think it was a combination of the fall, the pain, and her liver failure. 2. Alcoholic liver disease with cirrhosis, no ascites, and liver failure. Thrombocytopenia is present. Panceatitis. As such she is not getting DVT prophylaxis with Lovenox. I am using JENNIFER hose. Bilirubin seems to be improving today. MRCP does not show any ductal dilatation or tumors. She is getting a banana bag. No evidence of alcohol withdrawal. Plan is to try and encourage p.o. intake. I did describe clear Ensure as opposed to milky Ensure. Changed to p.o. vitamins tomorrow. 3. Hypotension appears to be chronic for her in spite of fluid resuscitation. It may or may not be related to pancreatitis but her labs look worse than her symptomatology or exam. I will not change any management there. 4. Rhabdomyolysis on the basis of CPK. Improving. No acute kidney injury. No change in management other than IV fluids 5. Back and leg pain due to fall. Encouraged to try the Robaxin. Encouraged to try the oxycodone and a small dose.
[2022-03-10] MEDS: IBUPROFEN 600 MG TABLET PO SCH ×2 (01:42→08:52)
[2022-03-10] MEDS: SODIUM CHLORIDE FLUSH 0.9% 10 ML SYRINGE IVP SCH ×2 (01:43→08:53)
[2022-03-10] MEDS: NYSTATIN CREAM 15 GM TUBE TOP SCH (08:53)
[2022-03-10] MEDS ORDERED: PRENATAL VITAMIN TABLET PO SCH (09:00)
[2022-03-10 09:08] LABS: BASOPHILS # (AUTO) 0.1 10^3/uL (0.0-0.1); BASOPHILS % (AUTO) 0.7 %; EOSINOPHILS % (AUTO) 0.1 %; HCT - HEMATOCRIT 37.4 % (37.0-47.0); HGB - HEMOGLOBIN 13.2 g/dL (12.0-16.0); LYMPHOCYTES # (AUTO) 0.9 10^3/uL (1.5-3.5); LYMPHOCYTES % (AUTO) 9.9 %; MEAN CORPUSCULAR HEMOGLOBIN 39.6 pg (27.0-31.0); MEAN CORPUSCULAR HGB CONC 35.3 g/dL (32.0-36.0); MEAN CORPUSCULAR VOLUME 112.3 fL (81.0-99.0); MEAN PLATELET VOLUME 12.1 fL (7.9-10.8); MONOCYTES # (AUTO) 0.8 10^3/uL (0.0-1.0); MONOCYTES % (AUTO) 9.3 %; NEUTROPHILS # (AUTO) 6.9 10^3/uL (1.5-6.6); NEUTROPHILS % (AUTO) 79.1 %; NRBC ABSOLUTE COUNT (AUTO) 0.11 x10^3/uL; NUCLEATED RED BLOOD CELLS AUTO 1.3 /100WBC; PLT - PLATELET COUNT 54 10^3/uL (130-450); RED BLOOD COUNT 3.33 10^6/uL (4.20-5.40); RED CELL DISTRIBUTION WIDTH 12.7 % (12.0-15.0); WHITE BLOOD COUNT 8.7 x10^3/uL (4.8-10.8)
[2022-03-10 09:12] LABS: SLIDE REVIEW? Indicated
[2022-03-10 09:18] LABS: ALBUMIN 2.6 g/dL (3.2-5.5); ALBUMIN/GLOBULIN RATIO 0.7 (1.0-2.2); BILIRUBIN,TOTAL 9.2 mg/dL (0.2-1.0); CREATININE 0.5 mg/dL (0.4-1.0); TOTAL PROTEIN 6.2 g/dL (6.7-8.2)
[2022-03-10 09:26] LABS: PLATELET ESTIMATE, MANUAL DECREASED (<130,000) (NORMAL); PLATELET MORPHOLOGY NORMAL APPEARANCE (NORMAL)
[2022-03-10 09:40] LABS: CALCIUM 8.7 mg/dL (8.5-10.3); POTASSIUM 3.4 mmol/L (3.5-5.0)
--- NOTE | 2022-03-10 11:33 | Discharge Plan ---
Discharge Plan Problem Reviewed?: Yes Disposition: Home, Self Care Condition: Stable Prescriptions: oxyCODONE [Roxicodone] 5 mg PO Q4HR PRN #30 tab PRN Reason: Pain 5 to 7 methocarbamoL [Robaxin] 500 mg PO Q6HR PRN #30 tab PRN Reason: Spasms Nystatin Cream [Mycostatin Cream] 1 applic TOP BID #30 each Diet: Low Sodium (small frequent, low fat meals) Activity Restrictions: Activity as Tolerated Shower Restrictions: No Driving Restrictions: No Instruction Topics: Pancreatitis Acute Dc, Cirrhosis, Cirrhosis Tx Health Concerns: You presented as weakness due to legs locking up after falling. We found you to have muscle spasms, low grade pancreatitis, low grade alcoholic hepatitis, and cirrhosis from alcohol abuse. No Smoking: If you smoke, Please STOP! Call for help.
[2022-03-10 12:00] VITALS: BP 100/62
--- NOTE | 2022-03-10 16:51 | DISCHARGE SUMMARY ---
Discharge Summary Admit Date: 03/08/22 Discharge Date: 03/10/22 Discharging Provider: Amy Peacock MD Primary Care Provider: no PCP Code Status: Do Not Attempt Resuscitation Condition at Discharge: Stable Discharge Disposition: 01 Home, Self Care - DIAGNOSES Discharge Diagnoses with Status of Each Condition: 1. Metabolic encephalopathy present on admission and resolved 2. Alcoholic liver disease with cirrhosis, no ascites 3. Liver failure 4. Pancreatitis 5. Alcohol abuse 6. Hypotension, resolved 7. Rhabdomyolysis 8. Back pain and leg pain due to fall - HPI History of Present Illness: She is a 61-year-old female who has no major medical illnesses and has not seen a primary care provider for many years. She regards her self is healthy. But COVID changed all that. She became very reclusive, and very fearful of leaving her home. She also escalated her alcohol use and went from 1 glass of wine 2-3 times a week to a bottle a day. On the day of admission she fell at a friend's house trying to get out of the house after walking their dog. She did not think she hurt her self very badly and then walked to her car but on the way to her car her legs "locked up and felt like marble" and she fell to the ground again. 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 She crawled from the car back into the house and laid there for a few hours until her found her. In our emergency room we found her to be slightly encephalopathic, hypotensive, in pain from her fall, and findings of cirrhosis, pancreatitis on CT. She was placed in observation to see if hydration and control of her pain would help. To also monitor her pancreatitis. - CONSULTS | PROCEDURES Procedures: Head CT without acute intracranial process Cervical spine CT, thoracic spine CT lumbar spine CT without fracture She did have facet arthropathy and occasional disc bulging. Abdomen pelvis CT With severe hepatic steatosis. Liver normal size. 3 cm hypodense nodule in the posterior segment of the right hepatic lobe adjacent to the inferior vena cava. Spleen was normal in size and enhancement. Pancreas was edematous with peripancreatic stranding consistent with acute pancreatitis. Postsurgical changes of gastric bypass. Chest x-ray with low lung volumes and vascular crowding but no evidence of active disease MRCP without biliary ductal dilatation or evidence of choledocho cholelithiasis. Same findings of acute pancreatitis is seen on same-day CT. Toxicology screen negative. Ethyl alcohol level less than 5. - HOSPITAL COURSE Hospital Course: The patient was placed on IV fluids. She did receive a banana bag. She did not have any problems with withdrawal. Careful history was done to make sure that she did not have any subjective complaints of pancreatitis and there were none. She states that she is always had dumping syndrome since her gastric bypass 16 years ago and it is unchanged. There is no abdominal pain, no fever, no chills. We went over her alcohol abuse, the effects thereof. She will need to be seen in the outpatient setting by GI hepatology. She was able to tolerate small amounts of food. And I explained to her that she should go home on at least clear protein boost. Small, low-fat frequent meals. We did do lab studies in view of her history of bypass surgery and her B12 level was 1746. Ferritin was 4037. Iron was 63. Zinc is a send out lab. Her liver enzymes were elevated on admission. MRCP was done and there was no obstruction or lesions. Bili ranged between 8.4-9.2. AST varied between 285 and 165. ALT varied between 97 and 80. She did not want to stay in the hospital any longer since she was able to tolerate small amounts of p.o. Had no abdominal pain. And back pain and leg pain had improved somewhat. Again I urged her to make sure that she establish yourself with her primary care provider and received referral. I recommended that she seek immediate care with a large multispecialty clinics at the [facility] or [facility] as soon as possible and then get referred to GI. At this point it is not clear to me whether her liver failure is chronic and permanent and irreversible or if some of her liver will come back if she stops drinking. She and her were adamant in stating that they were no longer going to drink. At discharge temperature was 36.6. Heart rate 98. Blood pressure 100/62. Respirations 18. 98% on room air. She was short statured female at 5 foot tall. She was 77 kg. She was alert, oriented, wearing glasses. Slight jaundice and icterus. Neck was supple. Lungs were clear with no increased respiratory effort. Regular rate and rhythm. Repeat abdominal exams never showed epigastric pain, or any abdominal pain. Extremities had no edema. At discharge she was able to sit up on her own, stand and pivot, and walk to the bathroom. - ALLERGIES Allergies/Adverse Reactions: Allergies Allergy/AdvReac Type Severity Reaction Status Date / Time No Known Drug Allergies Allergy Verified 03/07/22 23:02 - MEDICATIONS Home Medications: Ambulatory Orders Medication Instructions Recorded Confirmed Nystatin Cream [Mycostatin Cream] 1 applic TOP BID #30 each 03/10/22 methocarbamoL [Robaxin] 500 mg PO Q6HR PRN #30 tab 03/10/22 oxyCODONE [Roxicodone] 5 mg PO Q4HR PRN #30 tab 03/10/22 - LABS Result Diagrams: 03/10/22 08:59 03/10/22 08:59
[2022-03-12 23:07] LABS: FOLATE RBC 740 ng/mL (>498); HEMATOCRIT 36.6 % (34.0-46.6); HEMATOLOGY COMMENTS Note: (.)
== END 2022-03-10 12:40 | disposition home or self-care (01) ==
LOC: EDUNIT# → ED 22:52 → MS2 03-08 11:19
PROVIDERS: ADMIT Specialist; ATTEND Specialist
DX: G93.41 Metabolic encephalopathy (principal); I95.9 Hypotension, unspecified; K70.30 Alcoholic cirrhosis of liver without ascites; K72.90 Hepatic failure, unspecified without coma; K85.90 Acute pancreatitis without necrosis or infection, unspecified; F10.10 Alcohol abuse, uncomplicated; M54.2 Cervicalgia; M54.50 Low back pain, unspecified; M54.89 Other dorsalgia; W10.8XXA Fall (on) (from) other stairs and steps, initial encounter; M62.82 Rhabdomyolysis; M25.561 Pain in right knee; M25.562 Pain in left knee; K52.9 Noninfective gastroenteritis and colitis, unspecified; D69.6 Thrombocytopenia, unspecified; R74.01 Elevation of levels of liver transaminase levels; R79.89 Other specified abnormal findings of blood chemistry; Z20.822 Contact with and (suspected) exposure to COVID-19; Z66 Do not resuscitate; Z80.1 Family history of malignant neoplasm of trachea, bronchus and lung; Z83.3 Family history of diabetes mellitus; Z82.49 Family history of ischemic heart disease and other diseases of the circulatory system; Z98.0 Intestinal bypass and anastomosis status; Z98.84 Bariatric surgery status
CPT/HCPCS: 36415; 51701; 70450; 71045; 72125; 72128; 72131; 74177; 74181; 80053; 80306; 80320; 81001; 82140; 82550; 82607; 82728; 82747; 83540; 83605; 83690; 83735; 84100; 84484; 84630; 85014; 85025; 85610; 87633; 93005; 96361; 96365; 96366; 96375; 99284; 99285; A9270; G0378; J3411; Q9967; 81003; 87086

== ENCOUNTER 2022-03-11 20:30 | Outpatient (CLI) | payer OTHER | END 2022-03-11 20:31 | disposition critical access hospital (66) | LOC: EMS 20:30 | DX: R53.1 Weakness (principal) | CPT/HCPCS: A0425; A0427 ==

== ENCOUNTER 2022-03-11 20:45 | Inpatient (IN) | payer OTHER ==
[2022-03-11] MEDS ORDERED: SODIUM CHLORIDE 0.9% 1,000 ML IV STA (22:48)
--- NOTE | 2022-03-11 22:48 | ED Physician Documentation ---
History of Present Illness - Stated complaint Stated Complaint: WEAKNESS - Chief complaint Chief Complaint: General - History obtained from History obtained from: Patient - Additonal information Additional information: 61yF, recently hospitalized here, Presents with generalized weakness for the past week after a fall 5 days ago in which she slipped and fell down stairs. She was admitted to our hospital and found to have alcoholic cirrhosis, discharged 2 days ago and has been unable to care for her at home. He is requesting extra resources for care. Note that she's been eating little the past week and a half but has had poor diet for a long time. normally ambulatory independently but having trouble walking since the fall. Review of Systems Ten Systems: 10 systems reviewed and negative Constitutional: denies: Fever, Chills Neurologic: reports: Generalized weakness PD PAST MEDICAL HISTORY - Past Medical History Cardiovascular: Hypertension Respiratory: None Neuro: None Endocrine/Autoimmune: None GI: None DEPARTMENT OF NATURAL RESOURCES OFFICER: None : Incontinence HEENT: None Psych: None Musculoskeletal: None Derm: Other - Past Surgical History Past Surgical History: Yes General: Cholecystectomy - Present Medications Home Medications: Ambulatory Orders Medication Instructions Recorded Confirmed Nystatin Cream [Mycostatin Cream] 1 applic TOP BID #30 each 03/10/22 03/12/22 methocarbamoL [Robaxin] 500 mg PO Q6HR PRN #30 tab 03/10/22 03/12/22 oxyCODONE [Roxicodone] 5 mg PO Q4HR PRN #30 tab 03/10/22 03/12/22 Calcium Citrate 2 tab PO DAILY 03/12/22 03/12/22 Cholecalciferol [Vitamin D3] 1 tab PO DAILY 03/12/22 03/12/22 - Allergies Allergies/Adverse Reactions: Allergies Allergy/AdvReac Type Severity Reaction Status Date / Time No Known Drug Allergies Allergy Verified 03/11/22 20:52 - Social History Does the pt smoke?: No Smoking Status: Never smoker Does the pt drink ETOH?: Yes Does the pt have substance abuse?: No - Immunizations Immunizations are current?: Yes - POLST Patient has POLST: No PD ED PE NORMAL - Vitals Vital signs reviewed: Yes - General General: Alert and oriented X 3, Other (elderly and deconditioned appearing) - HEENT HEENT: Atraumatic, PERRL, EOMI - Neck Neck: Supple, no meningeal sign - Cardiac Cardiac: Other (tachycardic rate, regular rhythm) - Respiratory Respiratory: No respiratory distress, Clear bilaterally - Abdomen Abdomen: Non tender, Non distended - Derm Derm: Normal color, Warm and dry - Extremities Extremities: No deformity - Neuro Neuro: Alert and oriented X 3 - Psych Psych: Normal mood, Normal affect Results - Vitals Vitals: Vital Signs - 24 hr 03/12/22 03/12/22 03/12/22 01:00 03:00 05:00 Heart Rate 95 93 97 Respiratory 18 16 16 Rate Blood Pressure 118/67 105/63 122/83 H O2 Saturation 98 98 100 03/12/22 03/12/22 07:59 10:09 Heart Rate 94 94 Respiratory 13 18 Rate Blood Pressure 127/75 120/74 O2 Saturation 99 100 Oxygen O2 Source Room air - Labs Labs: Laboratory Tests 03/11/22 03/11/22 03/11/22 23:30 23:30 23:30 WBC 10.2 RBC 3.40 L Hgb 13.6 Hct 39.9 MCV 117.4 H MCH 40.0 H MCHC 34.1 RDW 13.8 Plt Count 55 L MPV 11.3 H Neut # (Auto) Not Reportable Lymph # (Auto) Not Reportable [place] # (Auto) Not Reportable Eos # (Auto) Not Reportable Baso # (Auto) Not Reportable Absolute Nucleated RBC Not Reportable Total Counted 100 Band Neuts % (Manual) 9 Abnorm Lymph % (Manual) 0 Metamyelocytes % 2 H Myelocytes % 3 H Nucleated RBC % Not Reportable Neutrophils # (Manual) 8.9 H Lymphocytes # (Manual) 0.6 L Monocytes # (Manual) 0.2 Eosinophils # (Manual) 0.0 Basophils # (Manual) 0.0 Nucleated RBCs 2 Differential Comment MANUAL DIFFERENTIAL Platelet Estimate DECREASED (<130,000) RBC Morph Micro Appear 1+ POLYCHROMASIA Sodium 133 L Potassium 3.5 Chloride 101 Carbon Dioxide 21 Anion Gap 11.0 BUN 11 Creatinine 0.6 Estimated GFR (MDRD) 101 Glucose 94 Lactic Acid 1.8 Calcium 8.3 L Total Bilirubin 6.6 H AST 148 H ALT 80 H Alkaline Phosphatase 162 H Ammonia Total Protein 5.9 L Albumin 2.4 L Globulin 3.5 Albumin/Globulin Ratio 0.7 L Lipase 80 H TSH Urine Color Urine Clarity Urine pH Ur Specific [place] Urine Protein Urine Glucose (UA) Urine Ketones Urine Occult Blood Urine Nitrite Urine Bilirubin Urine Urobilinogen Ur Leukocyte Esterase Urine RBC Urine WBC Ur Squamous Epith Cells Urine Bacteria Ur Microscopic Review Urine Culture Comments 03/11/22 03/12/22 03/12/22 23:30 06:42 07:31 WBC RBC Hgb Hct MCV MCH MCHC RDW Plt Count MPV Neut # (Auto) Lymph # (Auto) [place] # (Auto) Eos # (Auto) Baso # (Auto) Absolute Nucleated RBC Total Counted Band Neuts % (Manual) Abnorm Lymph % (Manual) Metamyelocytes % Myelocytes % Nucleated RBC % Neutrophils # (Manual) Lymphocytes # (Manual) Monocytes # (Manual) Eosinophils # (Manual) Basophils # (Manual) Nucleated RBCs Differential Comment Platelet Estimate RBC Morph Micro Appear Sodium Potassium Chloride Carbon Dioxide Anion Gap BUN Creatinine Estimated GFR (MDRD) Glucose Lactic Acid Calcium Total Bilirubin AST ALT Alkaline Phosphatase Ammonia 14.0 Total Protein Albumin Globulin Albumin/Globulin Ratio Lipase TSH 4.48 Urine Color DARK YELLOW Urine Clarity HAZY Urine pH 6.0 Ur Specific [place] 1.020 Urine Protein 30 H Urine Glucose (UA) NEGATIVE Urine Ketones 40 H Urine Occult Blood TRACE-INTA Urine Nitrite POSITIVE H Urine Bilirubin LARGE H Urine Urobilinogen 4 H Ur Leukocyte Esterase MODERATE H Urine RBC 0-5 Urine WBC >25 H Ur Squamous Epith Cells RARE Squamous Urine Bacteria Many H Ur Microscopic Review INDICATED Urine Culture Comments INDICATED PD MEDICAL DECISION MAKING - ED course ED course: No significant change from prior ED visit and hospital stay, but we are repeating labs. Patient hypotensive but responsive to fluids. Urinalysis showed bacteriuria but patient denies symptoms. Blood cultures sent to r/o septic etiology for hypotension, but more likely this is consequence of her advanced cirrhosis. d/w Dr. Peacock who can admit pending discussion with GI. My daytime colleague Dr. Gutiérrez will reach out to GI and complete admission. Departure - Departure Disposition: ED Place in Observation Clinical Impression: Generalized weakness, Elevated liver enzymes UTI (urinary tract infection) Qualifiers: Urinary tract infection type: acute cystitis Hematuria presence: without hematuria Qualified Code(s): N30.00 - Acute cystitis without hematuria Condition: Stable Discharge Date/Time: 03/12/22 12:32
[2022-03-11 23:33] LABS: BASOPHILS % (AUTO) 0.2 %; EOSINOPHILS % (AUTO) 0.1 %; HCT - HEMATOCRIT 39.9 % (37.0-47.0); HGB - HEMOGLOBIN 13.6 g/dL (12.0-16.0); LYMPHOCYTES % (AUTO) 8.6 %; MEAN CORPUSCULAR HGB CONC 34.1 g/dL (32.0-36.0); MEAN CORPUSCULAR VOLUME 117.4 fL (81.0-99.0); MEAN PLATELET VOLUME 11.3 fL (7.9-10.8); MONOCYTES % (AUTO) 20.5 %; NEUTROPHILS % (AUTO) 63.6 %; PLT - PLATELET COUNT 55 10^3/uL (130-450); RED CELL DISTRIBUTION WIDTH 13.8 % (12.0-15.0); WHITE BLOOD COUNT 10.2 x10^3/uL (4.8-10.8)
[2022-03-11 23:40] LABS: ABNORMAL LYMPHS % (MANUAL) 0 %
[2022-03-11 23:50] LABS: ALBUMIN 2.4 g/dL (3.2-5.5); ALBUMIN/GLOBULIN RATIO 0.7 (1.0-2.2); BILIRUBIN,TOTAL 6.6 mg/dL (0.2-1.0); CALCIUM 8.3 mg/dL (8.5-10.3); CREATININE 0.6 mg/dL (0.4-1.0); POTASSIUM 3.5 mmol/L (3.5-5.0); TOTAL PROTEIN 5.9 g/dL (6.7-8.2)
[2022-03-12 00:38] LABS: BAND NEUTROPHILS % (MANUAL) 9 %; DIFFERENTIAL COMMENT MANUAL DIFFERENTIAL; LYMPHOCYTES # (MANUAL) 0.6 10^3/uL (1.5-3.5); LYMPHOCYTES % (MANUAL) 6 %; METAMYELOCYTES % (MANUAL) 2 %; MONOCYTES # (MANUAL) 0.2 10^3/uL (0.0-1.0); MYELOCYTES % (MANUAL) 3 %; NEUTROPHILS # (MANUAL) 8.9 10^3/uL (1.5-6.6); NUCLEATED RBC (MANUAL) 2 %; PLATELET ESTIMATE, MANUAL DECREASED (<130,000) (NORMAL)
[2022-03-12 06:46] LABS: GLUCOSE, URINE (UA) NEGATIVE (NEGATIVE); KETONES,URINE (UA) 40 mg/dL (NEGATIVE); LEUKOCYTE ESTERASE, URINE MODERATE (NEGATIVE); NITRITE,URINE POSITIVE (NEGATIVE); OCCULT BLOOD,URINE TRACE-INTA (NEGATIVE); PROTEIN,URINE 30 mg/dL (NEGATIVE); UROBILINOGEN,URINE 4 E.U./dL (NORMAL)
[2022-03-12 06:48] LABS: CLARITY,URINE HAZY (CLEAR)
[2022-03-12 06:58] LABS: BILIRUBIN,URINE LARGE (NEGATIVE); ICTOTEST,URINE POSITIVE
[2022-03-12 07:03] LABS: BACTERIA,URINE Many /HPF (None Seen); RBC,URINE 0-5 /HPF (0-5); SQUAMOUS EPITHELIAL CELL,UR RARE Squamous (<= Few); WBC,URINE >25 /HPF (0-5)
[2022-03-12] MEDS ORDERED: cefTRIAXone 1 GM VIAL IVP STA (07:23)
[2022-03-12] MEDS ORDERED: oxyCODONE 5 MG TABLET PO STA (10:14)
[2022-03-12] MEDS ORDERED: LACTATED RINGERS 1,000 ML IV STA (10:14)
--- NOTE | 2022-03-12 12:11 | ED Physician Documentation ---
ED Addendum - Addendum Addendum: 03/12/22 12:07 I evaluated the patient and her after change of shift. She does have a flat demeanor and seeming general weakness. Did require some assistance just sitting up in bed. No focal weakness noted. She and her state she was back to the ER yesterday because of inability to stand and walk. It seemed worse and the evening compared to when she was discharged in the afternoon. She was complaining of some back pain that she has had for several weeks. She had been taking oxycodone 3 times daily for that. There was no acetaminophen in with the medication according to the . Otherwise I did talk with Dr. Elidia Bañuelos who is on for gastroenterology for [facility]. She did not see a need for transfer or hospitalization based on the liver issues. She did list several medications for causes of hepatitis and I ordered those. Otherwise to very follow-up in the office. I talked with Dr. Hartley who is the hospitalist and had been a conversation with the overnight emergency physician. Dr. Lundberg was willing to have the patient in the hospital for further treatment and reassessment. The treatment and outlined from the batch attendant was to do not only the hepatitis test but also blood cultures. If those are negative after 2 days, then to prescribe prednisone 40 mg daily for 28 days. Otherwise normal supportive care. Disposition: The patient is placed in the hospital to the hospitalist service. Diagnoses: 1. Generalized weakness 2. Liver failure 3. UTI
[2022-03-12] MEDS ORDERED: PROCHLORPERAZINE 10 MG/2 ML VIAL IVP PRN (12:14)
[2022-03-12] MEDS ORDERED: ONDANSETRON ODT 4 MG TABLET TL PRN (12:14)
[2022-03-12] MEDS ORDERED: ACETAMINOPHEN 325 MG TABLET PO PRN (12:14)
[2022-03-12] MEDS ORDERED: ONDANSETRON 4 MG/2 ML VIAL IVP PRN (12:14)
--- NOTE | 2022-03-12 13:01 | HISTORY & PHYSICAL EXAMINATION ---
Chief Complaint - Chief Complaint Chief Complaint: generalized weakness <Amy Peacock - Last Filed: 03/12/22 18:57> History of Present Illness - Admitted From Admitted From:: Emergency Department <Amy Peacock - Last Filed: 03/12/22 18:57> - History Obtained From Records Reviewed: I reviewed her records History obtained from: Patient Exam Limitations: none <Aide Hurley - Last Filed: 03/12/22 19:20> - History of Present Illness HPI Comment/Other: Sunni is a 61yo female here for generalized weakness. On 03/07 Sunni fell down while trying dog sit for a friend. She fell outside, she was unable to stand on her own and crawled to the front door. She got help from her to stand up, but her legs "felt like marbles". She went to the ED 03/11 because of generalized weakness. She was seen on 03/09 and was diagnosed with liver failure from cirrhosis and pancreatitis. Today she denies abdominal pain but she is getting worse at home. She is not able to eating anything and sometimes feels mildly nauseous but she denies vomiting, chills, fever. She has been feeling fatigued and like she doesn't want to eat for about 3 months. (Amy Peacock) Please refer to the last history and physical for more detail. (Aide Hurley) History - Past Medical History Cardiovascular: reports: Hypertension Respiratory: reports: None Neuro: reports: None Endocrine/Autoimmune: reports: None GI: reports: None SORORITY MOTHER: reports: None : reports: Incontinence HEENT: reports: None Psych: reports: None Musculoskeletal: reports: None Derm: reports: Other MRSA Hx?: No - Past Surgical History General: reports: Cholecystectomy - Family & Social History Family History Comment/Other: she says that her family has no chronic conditions that she is aware of. Living arrangement: At home Living Situation: With spouse/s.o. - Substance History Use: Uses substance without health or social issues: Alcohol Use Issues: Intoxication Abuse Issues: Intoxication Dependence: Experiences withdrawal or developed tolerances: Alcohol - POLST Patient has POLST: No <Amy Peacock - Last Filed: 03/12/22 18:57> Meds/Allgy <Amy Peacock - Last Filed: 03/12/22 18:57> <Aide Hurley - Last Filed: 03/12/22 19:20> - Home Medications Home Medications: Ambulatory Orders Medication Instructions Recorded Confirmed Nystatin Cream [Mycostatin Cream] 1 applic TOP BID #30 each 03/10/22 03/12/22 methocarbamoL [Robaxin] 500 mg PO Q6HR PRN #30 tab 03/10/22 03/12/22 oxyCODONE [Roxicodone] 5 mg PO Q4HR PRN #30 tab 03/10/22 03/12/22 Calcium Citrate 2 tab PO DAILY 03/12/22 03/12/22 Cholecalciferol [Vitamin D3] 1 tab PO DAILY 03/12/22 03/12/22 - Allergies Allergies/Adverse Reactions: Allergies Allergy/AdvReac Type Severity Reaction Status Date / Time No Known Drug Allergies Allergy Verified 03/11/22 20:52 Review of Systems - Constitutional Constitutional: reports: Fatigue, Weakness, Poor appetite - Gastrointestinal Gastrointestinal: reports: Poor appetite - Musculoskeletal Musculoskeletal: reports: Muscle weakness - Neurological Neurological: reports: General weakness <Amy Peacock - Last Filed: 03/12/22 18:57> <Aide Hurley - Last Filed: 03/12/22 19:20> - Other Findings Other Findings: A full ROS was performed and all other symptoms were negative. (Aide Hurley) Exam - Physical Exam General Appearance: positive: Alert, Lethargic Eyes Bilateral: positive: PERRL, EOMI, Other (bilateral scleral icterus.) Neck: positive: Other (supple) Respiratory: positive: No respiratory distress, Breath sounds nml Cardiovascular: positive: Regular rate & rhythm Abdomen: positive: Non-tender, Hepatomegaly Skin: positive: No rash, Warm, Dry Extremities: positive: Other (extremities without edema. Bruising noted on her knees and shins bilaterally). negative: Nml appearance Neurologic/Psychiatric: positive: Oriented x3, Depressed mood/affect <Amy Peacock - Last Filed: 03/12/22 18:57> - Vital Signs Vital Signs: Vital Signs x48h Temp Pulse Pulse Resp BP BP Pulse Ox 03/12/22 15:31 36.3 C L 92 18 125/70 99 03/12/22 13:00 37.2 C 91 18 125/72 98 03/12/22 12:30 90 16 130/76 99 03/12/22 10:09 94 18 120/74 100 Sepsis Event Note (H) - Evaluation Current Stage of Sepsis: Ruled out <Amy Peacock - Last Filed: 03/12/22 18:57> - Evaluation Possible source of Sepsis: negative: GI tract/intra-abdominal <Aide Hurley - Last Filed: 03/12/22 19:20> Conclusion/Plan - Problem List (1) Unable to eat Conclusion/Plan: She is unable to eat because she has a combination of pancreatitis and liver failure. She has no appetite and is failing at home. Start an NG tube and IV fluids. (2) Liver failure, acute Conclusion/Plan: Based on the patients history of alcohol use in the last two years her liver failure may be due to alcohol misuse. Additional considerations for acute liver failure include drug use, viral hepatitis, Susanne disease, hemochromatosis, cholangitis, medication side effects. I recommend getting CBC, PT/PTT, LFTs, CMP, lipase, viral serologies, ceruloplasmin, serum/urine copper, Doppler studies of portal and hepatic veins Qualifiers: Hepatic coma status: without hepatic coma Qualified Code(s): K72.00 - Acute and subacute hepatic failure without coma (4) Pancreatitis, acute Conclusion/Plan: The history and physical exam are consistent with alcohol induced acute pancreatitis. However initial considerations for the etiology of her pancreatitis include gallstones, hypertriglyceridemia, familial, infection, neoplasm. Her MRCP on 03/08 showed no biliary ductal dilation or evidence of choledocholithiasis. It was positive for acute pancreatitis, hepatic steatosis, abdominal CT on 03/08 confirmed these findings. I recommend repeat amylase, lipase, and ALT. I recommend fluid resuscitation with a goal to reduce BUN and Hct over 21-24hrs. Qualifiers: Pancreatitis type: unspecified pancreatitis type Acute pancreatitis complication: unspecified Qualified Code(s): K85.90 - Acute pancreatitis without necrosis or infection, unspecified - Lab Results Fish Bones: 03/11/22 23:30 03/11/22 23:30 <Amy Peacock - Last Filed: 03/12/22 18:57> - Problem List (2) Liver failure, acute Qualifiers: Hepatic coma status: without hepatic coma Qualified Code(s): K72.00 - Acute and subacute hepatic failure without coma (3) Pancreatitis, acute Qualifiers: Pancreatitis type: unspecified pancreatitis type Acute pancreatitis complication: unspecified Qualified Code(s): K85.90 - Acute pancreatitis without necrosis or infection, unspecified (4) Cirrhosis of liver Conclusion/Plan: She is presenting with cirrhosis with nonspecific symptoms of anorexia, fatigue, and scleral icterus. Her history is consistent with alcoholic etiology but I also considered viral hepatitis, autoimmune hepatitis, hemochromatosis, susanne disease, cholangitis. She is negative for ascites, encephalopathy. Her MELD score was 19, a 6.0% mortality in the next 90 days. Plan: ordered CBC, CMP, ferritin, US w/ doppler, hepatitis serologies. Qualifiers: Hepatic cirrhosis type: alcoholic cirrhosis Ascites presence: without ascites Qualified Code(s): K70.30 - Alcoholic cirrhosis of liver without ascites (5) Alcoholic liver disease Conclusion/Plan: Her history and physical are consistent with alcoholic liver disease. She has said she will never drink again, she will be taking B12, folate and thiamine supplements. Maddrey's score was only 6 points. The GI specialist at [facility] ecommended giving her steroids, however this is usually only used with a Maddrey score of 32 so at this time I will hold off on administering steroids. - Lab Results Fish Bones: 03/11/22 23:30 03/11/22 23:30 <Aide Hurley - Last Filed: 03/12/22 19:20> Core Measures - Anticipated LOS I expect patient to be DC'd or transferred within 96 hours.: No - DVT/VTE - Prophylaxis VTE/DVT Device ordered at admit?: Yes Not Ordered - Low Risk: Low Risk VTE/DVT Prophylaxis med ordered at admit?: Yes - Stroke - Rehab Assessment Rehab services assessment to be ordered?: No Not Ordered - Medical Reason: Not indicated - AMI - Statin at Admit Aspirin Prescribed on Admit: No Not Ordered - Medical Reason: Not indicated <Aide Hurley - Last Filed: 03/12/22 19:20>
--- NOTE | 2022-03-12 14:00 | PHARMACY PROGRESS NOTE ---
- Best Possible Medication History Admit Date and Time: 03/12/22 1214 Processed by: Pharmacy Medication History completed: Yes Secondary Source(s): Pharmacy records (Pt denies taking any meds though she had picked it up from [facility]) As the person ultimately responsible for medication therapy, providers are able to order a medication from an existing home medication list in [facility] via the "Reconcile Routine" prior to Confirmation of that medication by residential direct support professional. Such practice is discouraged except when the physician, in their clinical judgment, deems that a medical need exists for a medication without regard to previous use.
[2022-03-12] MEDS: oxyCODONE 5 MG TABLET PO PRN ×2 (14:43→21:33)
--- NOTE | 2022-03-12 15:32 | Ultrasound Report ---
PROCEDURE: Abdomen Limited INDICATIONS: new liver failure and pancreatitis``` TECHNIQUE: Real-time focused scanning was performed of the abdomen, with image documentation. COMPARISON: None FINDINGS: Hepatic echotexture is diffusely heterogeneous. No focal hepatic mass. Bladder surgically absent. No biliary ductal dilatation. Pancreas is not well seen. Right kidney is normal in size witho ut hydronephrosis. Hyperechoic focus within the right superior pole kidney measuring 7 mm is present. No free fluid. IVC is patent. IMPRESSION: 1. No acute process. 2. 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 Reviewed by: Alicia Lozoya MD on 03/12/2022 3:30 PM PST Approved by: Alicia Lozoya MD on 03/12/2022 3:30 PM PST Station ID: [id number]
[2022-03-12] MEDS: SODIUM CHLORIDE 0.9% 1,000 ML IV SCH (17:54)
[2022-03-12] MEDS: SODIUM CHLORIDE FLUSH 0.9% 10 ML SYRINGE IVP SCH (17:55)
[2022-03-12] MEDS: NYSTATIN POWDER 15 GM TOP SCH (21:33)
--- NOTE | 2022-03-12 21:50 | XRAY Report ---
PROCEDURE: Chest for Line Placement INDICATIONS: NGT placement TECHNIQUE: One view of the chest was acquired. COMPARISON: 03/08/2022. FINDINGS: Surgical changes and devices: There is a new nasogastric tube the tip extending into the region of t he gastric fundus. Lungs and pleura: No pleural effusions or pneumothorax. Lungs are clear. Mediastinum: Mediastinal contours appear normal. Heart size is normal. Bones and chest wall: No suspicious bony lesions. Overlying soft tissues appear unremarkable. Visua lized upper abdomen demonstrates a few distended loops of bowel which are incompletely evaluated. IMPRESSION: 1. Nasogastric tube extends into the stomach. 2. No acute cardiopulmonary disease. 3. Partially visualized distended loops of bowel within the upper abdomen. Reviewed by: Garrett Johnson MD on 03/12/2022 9:49 PM PST Approved by: Garrett Johnson MD on 03/12/2022 9:49 PM PST Station ID: [id number]
[2022-03-13] MEDS: oxyCODONE 5 MG TABLET PO PRN ×2 (01:34→09:46)
[2022-03-13] MEDS: SODIUM CHLORIDE FLUSH 0.9% 10 ML SYRINGE IVP SCH ×3 (01:35→17:10)
[2022-03-13 05:10] LABS: ALPHA-1-ANTITRYPSIN SERUM 244 mg/dL (101-187)
[2022-03-13 05:10] LABS: HBsAG SCREEN Negative (Negative); HCV AB <0.1 s/co ratio (0.0-0.9); HEPATITIS B CORE IGM AB Negative (Negative); HEPATITIS B SURFACE AB QUAL Reactive (.)
[2022-03-13 05:19] LABS: ALBUMIN 1.9 g/dL (3.2-5.5); ALBUMIN/GLOBULIN RATIO 0.6 (1.0-2.2); BILIRUBIN,TOTAL 4.8 mg/dL (0.2-1.0); CALCIUM 7.7 mg/dL (8.5-10.3); CREATININE 0.4 mg/dL (0.4-1.0); POTASSIUM 2.7 mmol/L (3.5-5.0); TOTAL PROTEIN 5.2 g/dL (6.7-8.2)
[2022-03-13 05:25] LABS: BASOPHILS % (AUTO) 0.8 %; EOSINOPHILS % (AUTO) 0.5 %; HCT - HEMATOCRIT 32.8 % (37.0-47.0); HGB - HEMOGLOBIN 11.8 g/dL (12.0-16.0); LYMPHOCYTES % (AUTO) 11.6 %; MEAN CORPUSCULAR HEMOGLOBIN 40.8 pg (27.0-31.0); MEAN CORPUSCULAR VOLUME 113.5 fL (81.0-99.0); NEUTROPHILS % (AUTO) 66.6 %; PLT - PLATELET COUNT 62 10^3/uL (130-450); RED BLOOD COUNT 2.89 10^6/uL (4.20-5.40); RED CELL DISTRIBUTION WIDTH 14.6 % (12.0-15.0); WHITE BLOOD COUNT 11.9 x10^3/uL (4.8-10.8)
[2022-03-13 05:44] LABS: ABNORMAL LYMPHS % (MANUAL) 0 %
[2022-03-13 07:09] LABS: BAND NEUTROPHILS % (MANUAL) 14 %; EOSINOPHILS # (MANUAL) 0.1 10^3/uL (0-0.7); LYMPHOCYTES # (MANUAL) 1.1 10^3/uL (1.5-3.5); LYMPHOCYTES % (MANUAL) 9 %; MONOCYTES # (MANUAL) 1.7 10^3/uL (0.0-1.0)
[2022-03-13 07:11] LABS: DIFFERENTIAL COMMENT MANUAL DIFFERENTIAL; PLATELET ESTIMATE, MANUAL DECREASED (<130,000) (NORMAL); PLATELET MORPHOLOGY NORMAL APPEARANCE (NORMAL)
[2022-03-13] MEDS: SODIUM CHLORIDE 0.9% 1,000 ML IV SCH (07:34)
[2022-03-13] MEDS ORDERED: NS W/20 MEQ KCL 1,000 ML IV SCH (09:00)
--- NOTE | 2022-03-13 09:39 | XRAY Report ---
PROCEDURE: Chest for Line Placement INDICATIONS: NGT placement TECHNIQUE: One view of the chest was acquired. COMPARISON: 03/12/2022 FINDINGS: Surgical changes and devices: Nasogastric tube is present distal tip projecting below the left hemid iaphragm. Lungs and pleura: No pleural effusions or pneumothorax. Lungs are clear. Mediastinum: Mediastinal contours appear normal. Heart size is normal. Bones and chest wall: No suspicious bony lesions. Overlying soft tissues appear unremarkable. IMPRESSION: Nasogastric tube in appropriate position. The above findings are concordant with preliminary report. Reviewed by: Casi Freeman MD on 03/13/2022 9:38 AM [facility] Approved by: Casi Freeman MD on 03/13/2022 9:38 AM [facility] Station ID: [id number]
--- NOTE | 2022-03-13 09:40 | XRAY Report ---
PROCEDURE: Chest for Line Placement INDICATIONS: ng tube was re-inserted TECHNIQUE: One view of the chest was acquired. COMPARISON: Chest x-ray 03/13/2022 FINDINGS: Surgical changes and devices: Nasogastric tube is present with distal tip projecting below the left hemidiaphragm. Lungs and pleura: No pleural effusions or pneumothorax. Lungs are clear. Mediastinum: Mediastinal contours appear normal. Heart size is normal. Bones and chest wall: No suspicious bony lesions. Overlying soft tissues appear unremarkable. IMPRESSION: Nasogastric tube as above. Reviewed by: Casi Freeman MD on 03/13/2022 9:38 AM [facility] Approved by: Casi Freeman MD on 03/13/2022 9:38 AM [facility] Station ID: [id number]
[2022-03-13] MEDS: NYSTATIN POWDER 15 GM TOP SCH ×2 (09:47→22:30)
[2022-03-13 12:57] LABS: MAGNESIUM 1.6 mg/dL (1.7-2.8); PHOSPHORUS 1.5 mg/dL (2.5-4.6)
[2022-03-13] MEDS ORDERED: POTASSIUM PHOSPHATE 15 MMOL in SODIUM CHLORIDE 0.9% 250 ML IV ONE (13:29)
[2022-03-13 18:07] LABS: ANTI-DNA (DS) AB QN <1 IU/mL (0-9); CENTROMERE B ANTIBODIES <0.2 AI (0.0-0.9); CHROMATIN ANTIBODIES <0.2 AI (0.0-0.9); JO-1 AB <0.2 AI (0.0-0.9); RIBOSOMAL P ANTIBODIES <0.2 AI (0.0-0.9); RNP ANTIBODIES <0.2 AI (0.0-0.9); SCLERODERMA-70 ANTIBODIES <0.2 AI (0.0-0.9); SJOGREN'S ANTI-SS-A <0.2 AI (0.0-0.9); SJOGREN'S ANTI-SS-B <0.2 AI (0.0-0.9); SMITH ANTIBODIES <0.2 AI (0.0-0.9); SMITH/RNP ANTIBODIES <0.2 AI (0.0-0.9)
--- NOTE | 2022-03-13 18:26 | MRI Report ---
PROCEDURE: MRI brain without contrast INDICATIONS: Worsening weakness, confusion and vocalizing TECHNIQUE: Noncontrast axial T1 spin echo, axial T2 fast spin echo, sagittal and axial FLAIR, coronal T2 fast sp in echo, axial gradient echo, axial diffusion and ADC through the brain. COMPARISON: None. FINDINGS: Image quality: Excellent. CSF Spaces: Basal cisterns are patent. No extra-axial fluid collections. Ventricles are normal in size and shape. Brain: No intracranial masses or hemorrhage. Beckford/white matter interface is normal. Brainstem appe ars normal. Diffusion-weighted images demonstrate no acute infarct. Punctate DWI vague hyperdensity in the left caudate nucleus and may reflect a subacute chronic infarct. Normal intravascular flow vo ids are present. Moderate atrophy and trace white matter chronic ischemic change Skull and face: Calvarium has normal marrow signal. Orbits appear normal. Sinuses: Sinuses and mastoids are clear. IMPRESSION: 1. Moderate atrophy and trace white matter chronic ischemic change. 2. 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
--- NOTE | 2022-03-13 19:20 | PROVIDER PROGRESS NOTE ---
Assessment/Plan - Problem List (1) Weakness Assessment/Plan: She is unable to eat because she has a combination of pancreatitis and liver failure. She has no appetite and was failing at home. She definitely has altered mental status per the , because she was walking and coversant just 2 weeks ago. Her AMS may also be from liver failure, however her Ammonia level is normal today. By exam she has flat affect and bradykinesis like a Parkinson's pt or someone overmedicated with narcotics. We started an NG tube, and started ng feeding to see if her GI tract would tolerate it and started IV fluids. Because of confusion, she pulled out her NG tube twice this morning, a third [address]). Continue managing this pt in Observation status, as approved by [facility]. We will obtain a brain MRI to evaluate for an ischemic stroke or hemorrhage, given her severely altered mental status. I asked the if he would want to proceed with PEG tube if she tolerates and improves with the fluids and calories. He said he wants to think about it and will use the findings on the brain MRI to make a decision. Will decrease or taper to off, any narcotics or other sedating meds. (2) Liver failure, acute Conclusion/Plan: Based on the patients history of alcohol use in the last two years her liver failure may be due to alcohol misuse. Additional considerations for acute liver failure include drug use, viral hepatitis, Anastacio disease, hemochromatosis, cholangitis, medication side effects. GI recommended getting CBC, PT/PTT, LFTs, CMP, lipase, viral serolog ies, ceruloplasmin, serum/urine copper, Doppler studies of portal and hepatic veins Qualifiers: Hepatic coma status: without hepatic coma Qualified Code(s): K72.00 - Acute and subacute hepatic failure without coma (3) Pancreatitis, acute Conclusion/Plan: The history and physical exam are consistent with alcohol induced acute pancreatitis. However initial considerations for the etiology of her panc reatitis include gallstones, hypertriglyceridemia, familial, infection, neoplasm. Her MRCP on 03/08 showed no biliary ductal dilation or evidence of choledocholithiasis. It was positive for acute pancreatitis, hepatic steatosis, abdominal CT on 03/08 confirmed these findings. GI recommended repeat amylase, lipase, and ALT. GI recommended fluid resuscitation with a goal to reduce BUN and Hct over 24hrs. her oral intake can be clear liquids Qualifiers: Pancreatitis type: unspecified pancreatitis type Acute pancreatitis complication: unspecified Qualified Code(s): K85.90 - Acute pancreatitis without necrosis or infection, unspecified (4) Cirrhosis of liver Conclusion/Plan: She is presenting with cirrhosis with nonspecific symptoms of anorexia, fatigue, and scleral icterus. Her history is consistent with alcoholic etiology but we also considereded viral hepatitis, autoimmune hepatitis, hemochromatosis, anastacio disease, cholangitis. She is negative for ascites, but does have encephalopathy. Her MELD score was 19, a 6.0% mortality in the next 90 days. We ordered CBC, CMP, ferritin, US w/ doppler, hepatitis serologies. Qualifiers: Hepatic cirrhosis type: alcoholic cirrhosis Ascites presence: without ascit es Qualified Code(s): K70.30 - Alcoholic cirrhosis of liver without ascites (5) Alcoholic liver disease Conclusion/Plan: Her history and physical are consistent with alcoholic liver disease. She has said she will never drink again, she will be taking B12, folate and thiamine supplements. Maddrey's score was only 6 points. The GI specialist at [facility] recommended giving her steroids, however this is usually only used with a Maddrey score of 32 so at this time we are holding off on administering steroids. (6) Back pain She was prescribed oxycodone for this pain, which started after a recent fall. She herself says there is still pain of the whole spine. Will wean oxycodone down to off because I suspect it is causing her lethargic altered mental status. Will order lidocaine topically instead - Current Meds Current Meds: Current Medications Generic Name Dose Route Start Last Admin Trade Name Cesar PRN Reason Stop Dose Admin Potassium Chloride/Sodium Chloride 1,000 mls @ 83.333 mls/hr 03/13/22 09:00 03/13/22 18:24 Normal Saline 0.9% W/20 Meq Kcl IV 83.3 mls/hr .Q12H VICK Infusion Potassium Phosphate 15 mmol/ 255 mls @ 42.5 mls/hr 03/13/22 13:29 03/13/22 18:24 Sodium Chloride IV 03/13/22 19:28 42.5 mls/hr ONCE ONE Infusion Nystatin 1 applic 03/12/22 21:00 03/13/22 09:47 Nystatin Powder 15 Gm TOP 1 applic BID VICK Administration Oxycodone HCl 5 mg 03/12/22 12:14 03/13/22 09:46 Oxycodone 5 Mg Tablet PO 5 mg Q4HR PRN Administration Pain 5 to 7 Sodium Chloride 10 ml 03/12/22 17:00 03/13/22 17:10 Sodium Chloride Flush 0.9% 10 Ml Syringe IVP Not Given 0100,0900,1700 VICK - Lab Result Fish Bone Diagrams: 03/14/22 05:37 03/14/22 05:37 - Additional Planning My Orders: My Active Orders 03/13/22 09:00 Ns W/20 Meq KCl [Normal Saline 0.9% W/20 Meq KCl] 1,000 ml IV 83.333 mls/hr 03/13/22 Lunch Clear Liquid Diet [DIET] 03/13/22 12:05 Daily Weight [RC] DAILY IO [RC] QSHIFT Tube Feeding [RC] QSHIFT 03/13/22 13:29 Potassium Phosphate 15 mmol Sodium Chloride 0.9% [Normal Saline 0.9%] 250 ml IV ONCE 03/14/22 05:00 COMPREHENSIVE METABOLIC PANEL [CHEM] Timed MAGNESIUM [CHEM] Timed PHOSPHORUS [CHEM] Timed PREALBUMIN [CHEM] Timed 03/16/22 05:00 COMPREHENSIVE METABOLIC PANEL [CHEM] Timed MAGNESIUM [CHEM] Timed PHOSPHORUS [CHEM] Timed PREALBUMIN [CHEM] Timed 03/19/22 05:00 COMPREHENSIVE METABOLIC PANEL [CHEM] Timed MAGNESIUM [CHEM] Timed PHOSPHORUS [CHEM] Timed PREALBUMIN [CHEM] Timed Subjective - Subjective Patient Reports: Other (Is hardly communicating, has a blank stare) Nursing Reports: Other (Confused and has pulled out ng tube twice since inserted in ED) Objective Vital Signs: Vital Signs - 24 hr 03/12/22 03/12/22 03/13/22 20:46 23:31 01:00 Temperature 36.8 C 36.5 C 36.4 C L Heart Rate [ Activity] Heart Rate [ Brachial] Heart Rate [ 105 H 93 102 H Radial] Heart Rate [ Sitting] Heart Rate [ Supine] Respiratory 18 18 Rate Blood Pressure [Activity] Blood Pressure [Left Brachial artery] Blood Pressure 151/77 H 135/66 H 134/73 H [Right Brachial artery] Blood Pressure [Sitting] Blood Pressure [Supine] O2 Saturation 99 100 If not protocol 99 : Oxygen Flow, liters/minute 03/13/22 03/13/22 03/13/22 05:26 08:48 10:35 Temperature 37.0 C 36.8 C Heart Rate [ 120 H Activity] Heart Rate [ 99 Brachial] Heart Rate [ 93 Radial] Heart Rate [ 124 H Sitting] Heart Rate [ 102 H Supine] Respiratory 18 18 Rate Blood Pressure 126/79 [Activity] Blood Pressure [Left Brachial artery] Blood Pressure 124/64 138/67 H [Right Brachial artery] Blood Pressure 142/87 H [Sitting] Blood Pressure 129/78 [Supine] O2 Saturation 97 98 If not protocol : Oxygen Flow, liters/minute 03/13/22 03/13/22 03/13/22 10:40 12:22 15:56 Temperature 36.4 C L 36.4 C L Heart Rate [ 120 H Activity] Heart Rate [ 112 H 125 H Brachial] Heart Rate [ Radial] Heart Rate [ 124 H Sitting] Heart Rate [ 102 H Supine] Respiratory 18 18 Rate Blood Pressure 126/79 [Activity] Blood Pressure 129/77 129/81 H [Left Brachial artery] Blood Pressure [Right Brachial artery] Blood Pressure 142/87 H [Sitting] Blood Pressure 129/78 [Supine] O2 Saturation 98 96 If not protocol : Oxygen Flow, liters/minute Oxygen O2 Source Room air I&O (Last 24 Hrs): Intake and Output Totals x24h 03/11/22 03/12/22 03/13/22 23:59 23:59 23:59 Intake Total 2532.499 2031.577 Output Total 200 550 Balance 2332.499 1481.577 General: Alert, Other (Lethargic, bradykinetic, delay when answering, has flat affect) HEENT: Mucous membr. moist/pink, Other (Icteric sclerae) Neck: Supple, No JVD (in sitting upright position) Neuro: Alert, Disoriented, Other (Flat affect, bradykinetic, has intermittent hand tremor) Cardiovascular: Regular rate, No murmurs Respiratory: No respiratory distress, Breath sounds nml Abdomen: Normal bowel sounds, Soft, No tenderness, Other (Mildly distended) Extremities: No edema, No tenderness/swelling Skin: No rashes (Icteric skin color) - Results Results: Laboratory Results WBC 11.9 x10^3/uL (4.8-10.8) H 03/13/22 04:56 RBC 2.89 10^6/uL (4.20-5.40) L 03/13/22 04:56 Hgb 11.8 g/dL (12.0-16.0) L 03/13/22 04:56 Hct 32.8 % (37.0-47.0) L 03/13/22 04:56 MCV 113.5 fL (81.0-99.0) H 03/13/22 04:56 MCH 40.8 pg (27.0-31.0) H 03/13/22 04:56 MCHC 36.0 g/dL (32.0-36.0) 03/13/22 04:56 RDW 14.6 % (12.0-15.0) 03/13/22 04:56 Plt Count 62 10^3/uL (130-450) L 03/13/22 04:56 MPV 11.0 fL (7.9-10.8) H 03/13/22 04:56 Neut # (Auto) Not Reportable 03/13/22 04:56 Lymph # (Auto) Not Reportable 03/13/22 04:56 [place] # (Auto) Not Reportable 03/13/22 04:56 Eos # (Auto) Not Reportable 03/13/22 04:56 Baso # (Auto) Not Reportable 03/13/22 04:56 Absolute Nucleated RBC Not Reportable 03/13/22 04:56 Total Counted 100 03/13/22 04:56 Band Neuts % (Manual) 14 % (0-10) H 03/13/22 04:56 Abnorm Lymph % (Manual) 0 % 03/13/22 04:56 Metamyelocytes % 2 % (-0) H 03/11/22 23:30 Myelocytes % 3 % (-0) H 03/11/22 23:30 Nucleated RBC % Not Reportable 03/13/22 04:56 Neutrophils # (Manual) 9.0 10^3/uL (1.5-6.6) H 03/13/22 04:56 Lymphocytes # (Manual) 1.1 10^3/uL (1.5-3.5) L 03/13/22 04:56 Monocytes # (Manual) 1.7 10^3/uL (0.0-1.0) H 03/13/22 04:56 Eosinophils # (Manual) 0.1 10^3/uL (0-0.7) 03/13/22 04:56 Basophils # (Manual) 0.0 10^3/uL (0-0.1) 03/13/22 04:56 Nucleated RBCs 2 % 03/11/22 23:30 Differential Comment MANUAL DIFFERENTIAL 03/13/22 04:56 Platelet Estimate DECREASED (<130,000) (NORMAL) 03/13/22 04:56 Platelet Morphology NORMAL APPEARANCE (NORMAL) 03/13/22 04:56 RBC Morph Micro Appear 2+ MACROCYTOSIS (NORMAL) 1+ HYPOCHROMASIA (NORMAL) 03/13/22 04:56 RBC Morph Micro Appear 2+ MACROCYTOSIS (NORMAL) 1+ HYPOCHROMASIA (NORMAL) 03/13/22 04:56 Sodium 131 mmol/L (135-145) L 03/13/22 04:56 Potassium 2.7 mmol/L (3.5-5.0) L 03/13/22 04:56 Chloride 98 mmol/L (101-111) L 03/13/22 04:56 Carbon Dioxide 24 mmol/L (21-32) 03/13/22 04:56 Anion Gap 9.0 (6-13) 03/13/22 04:56 BUN 10 mg/dL (6-20) 03/13/22 04:56 Creatinine 0.4 mg/dL (0.4-1.0) 03/13/22 04:56 Estimated GFR (MDRD) 161 (>89) 03/13/22 04:56 Glucose 119 mg/dL (70-100) H 03/13/22 04:56 Lactic Acid 1.8 mmol/L (0.5-2.2) 03/11/22 23:30 Calcium 7.7 mg/dL (8.5-10.3) L 03/13/22 04:56 Phosphorus 1.5 mg/dL (2.5-4.6) L 03/13/22 12:38 Magnesium 1.6 mg/dL (1.7-2.8) L 03/13/22 12:38 Total Bilirubin 4.8 mg/dL (0.2-1.0) H 03/13/22 04:56 AST 124 IU/L (10-42) H 03/13/22 04:56 ALT 67 IU/L (10-60) H 03/13/22 04:56 Alkaline Phosphatase 158 IU/L (42-121) H 03/13/22 04:56 Ammonia 16.6 umol/L (7-35) 03/13/22 04:56 Total Protein 5.2 g/dL (6.7-8.2) L 03/13/22 04:56 Albumin 1.9 g/dL (3.2-5.5) L 03/13/22 04:56 Globulin 3.3 g/dL (2.1-4.2) 03/13/22 04:56 Albumin/Globulin Ratio 0.6 (1.0-2.2) L 03/13/22 04:56 Brtel-9-Xtrfvrqnove 244 mg/dL (101-187) H 03/12/22 10:56 Ceruloplasmin 17.0 mg/dL (19.0-39.0) L 03/12/22 10:56 Lipase 80 U/L (22-51) H 03/11/22 23:30 TSH 4.48 uIU/mL (0.34-5.60) 03/11/22 23:30 Urine Color DARK YELLOW 03/12/22 06:42 Urine Clarity HAZY (CLEAR) 03/12/22 06:42 Urine pH 6.0 PH (5.0-7.5) 03/12/22 06:42 Ur Specific [place] 1.020 (1.002-1.030) 03/12/22 06:42 Urine Protein 30 mg/dL (NEGATIVE) H 03/12/22 06:42 Urine Glucose (UA) NEGATIVE mg/dL (NEGATIVE) 03/12/22 06:42 Urine Ketones 40 mg/dL (NEGATIVE) H 03/12/22 06:42 Urine Occult Blood TRACE-INTA (NEGATIVE) 03/12/22 06:42 Urine Nitrite POSITIVE (NEGATIVE) H 03/12/22 06:42 Urine Bilirubin LARGE (NEGATIVE) H 03/12/22 06:42 Urine Urobilinogen 4 E.U./dL (NORMAL) H 03/12/22 06:42 Ur Leukocyte Esterase MODERATE (NEGATIVE) H 03/12/22 06:42 Urine RBC 0-5 /HPF (0-5) 03/12/22 06:42 Urine WBC >25 /HPF (0-5) H 03/12/22 06:42 Ur Squamous Epith Cells RARE Squamous (<= Few) 03/12/22 06:42 Urine Bacteria Many /HPF (None Seen) H 03/12/22 06:42 Ur Microscopic Review INDICATED 03/12/22 06:42 Urine Culture Comments INDICATED 03/12/22 06:42 IgG 1196 mg/dL (586-1602) 03/12/22 10:56 IgM 104 mg/dL (26-217) 03/12/22 10:56 MAXIMO Interpretation Comment (.) 03/12/22 10:56 Anti-sm/[employer] Abs <0.2 AI (0.0-0.9) 03/12/22 10:56 GISELLA-1 Antibody <0.2 AI (0.0-0.9) 03/12/22 10:56 SS-A/Ro Antibody <0.2 AI (0.0-0.9) 03/12/22 10:56 SS-B/La Antibody <0.2 AI (0.0-0.9) 03/12/22 10:56 Sm (Franks) Antibody <0.2 AI (0.0-0.9) 03/12/22 10:56 [employer] Antibody <0.2 AI (0.0-0.9) 03/12/22 10:56 Scl-70 Scleroderma Ab <0.2 AI (0.0-0.9) 03/12/22 10:56 Double Strand DNA Ab <1 IU/mL (0-9) 03/12/22 10:56 Ribosomal P Prot Ab <0.2 AI (0.0-0.9) 03/12/22 10:56 Chromatin Antibody <0.2 AI (0.0-0.9) 03/12/22 10:56 Centromere B Antibody <0.2 AI (0.0-0.9) 03/12/22 10:56 Hepatitis A IgM Ab Negative (Negative) 03/12/22 10:51 Hep Bs Antigen Negative (Negative) 03/12/22 10:51 Hep Bs Antibody Reactive (.) 03/12/22 10:51 Hep B Core Total Ab Positive (Negative) A 03/12/22 10:51 Hep B Core IgM Ab Negative (Negative) 03/12/22 10:51 Hep B Core IgM Ab Negative (Negative) 03/12/22 10:51 Hepatitis C Antibody <0.1 s/co ratio (0.0-0.9) 03/12/22 10:51 Hepatitis C Interp Comment (.) 03/12/22 10:51 SARS-CoV-2 (PCR) NOT DETECTED 03/12/22 12:20 Sepsis Event Note (H) - Evaluation Current Stage of Sepsis: Ruled out Possible source of Sepsis: negative: GI tract/intra-abdominal
[2022-03-13] MEDS: NS W/20 MEQ KCL 1,000 ML IV SCH (20:43)
[2022-03-14] MEDS: LIDOCAINE PATCH 5% TOP PRN (00:44)
[2022-03-14] MEDS: NS W/20 MEQ KCL 1,000 ML IV SCH (00:44)
[2022-03-14] MEDS: SODIUM CHLORIDE FLUSH 0.9% 10 ML SYRINGE IVP SCH ×3 (00:44→17:27)
[2022-03-14 05:53] LABS: BASOPHILS % (AUTO) 0.7 %; HGB - HEMOGLOBIN 11.6 g/dL (12.0-16.0); MEAN PLATELET VOLUME 11.1 fL (7.9-10.8)
[2022-03-14 05:55] LABS: EOSINOPHILS % (AUTO) 0.3 %; HCT - HEMATOCRIT 32.4 % (37.0-47.0); LYMPHOCYTES % (AUTO) 8.3 %; MEAN CORPUSCULAR HGB CONC 35.8 g/dL (32.0-36.0); MEAN CORPUSCULAR VOLUME 111.7 fL (81.0-99.0); MONOCYTES % (AUTO) 9.4 %; NEUTROPHILS % (AUTO) 76.8 %; PLT - PLATELET COUNT 79 10^3/uL (130-450); RED CELL DISTRIBUTION WIDTH 14.9 % (12.0-15.0); WHITE BLOOD COUNT 14.3 x10^3/uL (4.8-10.8)
[2022-03-14 06:01] LABS: ABNORMAL LYMPHS % (MANUAL) 0 %
[2022-03-14 06:04] LABS: ALBUMIN 1.9 g/dL (3.2-5.5); ALBUMIN/GLOBULIN RATIO 0.5 (1.0-2.2); BILIRUBIN,TOTAL 4.7 mg/dL (0.2-1.0); CALCIUM 7.9 mg/dL (8.5-10.3); CREATININE 0.4 mg/dL (0.4-1.0); POTASSIUM 2.7 mmol/L (3.5-5.0); TOTAL PROTEIN 5.5 g/dL (6.7-8.2)
[2022-03-14 06:07] LABS: MAGNESIUM 1.6 mg/dL (1.7-2.8); PHOSPHORUS 1.1 mg/dL (2.5-4.6)
[2022-03-14 06:31] LABS: BAND NEUTROPHILS % (MANUAL) 9 %; DIFFERENTIAL COMMENT MANUAL DIFFERENTIAL; LYMPHOCYTES # (MANUAL) 1.6 10^3/uL (1.5-3.5); LYMPHOCYTES % (MANUAL) 11 %; NEUTROPHILS # (MANUAL) 11.7 10^3/uL (1.5-6.6); PLATELET ESTIMATE, MANUAL DECREASED (<130,000) (NORMAL); PLATELET MORPHOLOGY NORMAL APPEARANCE (NORMAL)
[2022-03-14] MEDS: ZINC OXIDE 20% OINT 30 GM TUBE TOP PRN (08:26)
[2022-03-14] MEDS: NYSTATIN POWDER 15 GM TOP SCH ×2 (08:26→21:00)
[2022-03-14 09:09] LABS: ACTIN (SMOOTH MUSCLE) ANTIBODY 17 Units (0-19); MITOCHONDRIAL (M2) ANTIBODY <20.0 Units (0.0-20.0)
[2022-03-14] MEDS: POTASSIUM CHLOR 10 MEQ/100 ML 10 MEQ/100 ML BAG IV SCH ×5 (10:31→16:10)
[2022-03-14] MEDS: THIAMINE 100 MG TABLET PO SCH (10:32)
[2022-03-14] MEDS: PRENATAL VITAMIN TABLET PO SCH (10:32)
[2022-03-14] MEDS ORDERED: KETOROLAC 30 MG/ML VIAL IVP STA (11:10)
[2022-03-14] MEDS: MULTIVITAMIN 10 ML, THIAMINE INJ 100 MG, MAGNESIUM SULFATE 2 GM, FOLIC ACID INJ 1 MG in... IV SCH ×5 (13:01)
[2022-03-14] MEDS: THIAMINE INJ 300 MG in SODIUM CHLORIDE 0.9% 50 ML IV SCH (13:01)
--- NOTE | 2022-03-14 15:01 | PROVIDER PROGRESS NOTE ---
Assessment/Plan - Problem List (1) Altered mental status Qualifiers: Altered mental status type: somnolence Qualified Code(s): R40.0 - Somnolence Assessment/Plan: She was brought back just 48 hours after recent discharge due to AMS: she was weaker, lethargic and had no oral nutrition intake. We felt she was unable to eat because she has a combination of pancreatitis and liver failure. She had no appetite and was failing at home. She definitely has altered mental status per the , because she was walking and coversant just 2 weeks ago. Her AMS may also be from liver failure, however her Ammonia level was normal today, up to 30 today. She had a flat affect and bradykinesis like a Parkinson's pt or someone overmedicated with narcotics. Her oxycodone was therefore stopped after one final dose allowed. With that change, she is slightly more alert, actually has facial expressions today, is less bradykinetic. We also had started an NG tube, and started ng feeding to see if her GI tract would tolerate it and started IV fluids. Consideration for a PEG tube had been suggested for the to decide. Because of confusion, she pulled out her NG tube twice yesterday, it was replaced and she pulled it out again this morning. We obtained a brain MRI yesterday to evaluate for an ischemic stroke or hemorrhage, given her severely altered mental status. This showed the same brain atrophy as the head CT (done at the last recent admission), but also did show an old stroke. Plan: Will remain off narcotics to continue to wash them out of her system. We will leave the NG tube out and continue with the ordered clear liquid diet We will give her a chance for further recovery, and in case this is Wernicke's encephalopathy, by ordering high-dose Thiamine 500 mg IV daily (she is already on 100 mg p.o. daily and we will supplement this with 400 mg more in IV form; 300 mg iv, and will start 100 mg in a Banana Bag today instead of NS). This is planned for the next 48 hours. Will try to make her an Inpt. Follow Ammonia level daily. Would start Lactulose if needed. Will not pursue the plan of a PEG tube and await to see if her appetite improves. This was discussed with the today at bedside, and he is agreeable with this plan. (2) Liver failure, acute Conclusion/Plan: Based on the patients history of alcohol use in the last two years, her liver failure is likely due to alcohol abuse. Additional considerations for acute liver failure include drug use, viral hepatitis, Anastacio disease, hemochromatosis, cholangitis, medication side effects. GI recommended getting CBC, PT/PTT, LFTs, CMP, lipase, viral serologies, ceruloplasmin, serum/urine copper, Doppler studies of portal and hepatic veins Qualifiers: Hepatic coma status: without hepatic coma Qualified Code(s): K72.00 - Acute and subacute hepatic failure without coma (3) Pancreatitis, acute Conclusion/Plan: The history and physical exam are consistent with alcohol induced acute pancreatitis. However initial considerations for the etiology of her pancreatitis include gallstones, hypertriglyceridemia, familial, infection, neoplasm. Her MRCP on 03/08 showed no biliary ductal dilation or evidence of choledocholithiasis. It was positive for acute pancreatitis, hepatic steatosis, abdominal CT on 03/08 confirmed these findings. GI recommended repeat amylase, lipase, and ALT. GI recommended fluid resuscitation with a goal to reduce BUN and Hct over 24hrs. Plan: IV fluids to continue with a Banana Bag Her oral intake can be clear liquids Qualifiers: Pancreatitis type: unspecified pancreatitis type Acute pancreatitis complication: unspecified Qualified Code(s): K85.90 - Acute pancreatitis without necrosis or infection, unspecified (4) Cirrhosis of liver Conclusion/Plan: She is presenting with cirrhosis with nonspecific symptoms of anorexia, fatigue, and scleral icterus. Her history is consistent with alcoholic etiology but we also considereded viral hepatitis, autoimmune hepatitis, hemochromatosis, anastacio disease, cholangitis. She is negative for ascites, but does have encephalopathy. Her MELD score was 19, a 6.0% mortality in the next 90 days. We ordered CBC, CMP, ferritin, US w/ doppler, hepatitis serologies. Qualifiers: Hepatic cirrhosis type: alcoholic cirrhosis Ascites presence: without ascites Qualified Code(s): K70.30 - Alcoholic cirrhosis of liver without ascites (5) Alcoholic liver disease Conclusion/Plan: Her history and physical are consistent with alcoholic liver disease. She has said she will never drink again, she will be taking B12, folate and thiamine supplements. Maddrey's score was only 6 points. The GI specialist at [facility] recommended giving her steroids, however this is usually only used with a Maddrey score of 32 so at this time we are holding off on administering steroids. (6) Back pain Conclusion/Plan: She was prescribed oxycodone for this pain, which started after a recent fall. She reported still having pain of the whole spine. Plan: We weaned oxycodone down to off because I suspected it was causing her lethargic altered mental status. With that, she is more alert today. We ordered lidocaine topically, which was not enough for pain control. Will add iv Toradol for pain control. Will avoid narcotics. (7) Hypokalemia Conclusion/Plan: Related to poor p.o. intake for the last 2 weeks at least. Plan: Will replace with IV K riders Follow BMP q12-24 h 8) Hx of stroke Conclusion/Plan: This is new information obtained from the brain MRI that was done yesterday. Plan: Will not start a daily aspirin because of her alcohol abuse likely causing plt dysfunction, but also since we have her on NSAIDs for pain control now She has been malnourished and I doubt her cholesterol is elevated, to start a statin. Will check a fasting lipid panel. - Current Meds Current Meds: Current Medications Generic Name Dose Route Start Last Admin Trade Name Freq PRN Reason Stop Dose Admin Potassium Chloride 10 meq in 100 mls @ 100 mls/hr 03/14/22 10:00 03/14/22 14:17 Potassium Chloride IV 03/14/22 14:59 80 mls/hr Q1H VICK Administration Multivitamins 10 ml/ Thiamine 1,015.2 mls @ 100 mls/hr 03/14/22 12:00 03/14/22 13:01 HCl 100 mg/ Magnesium Sulfate IV 100 mls/hr 2 gm/ Folic Acid 1 mg/ Sodium DAILY VICK Administration Chloride Thiamine HCl 300 mg/ Sodium 53 mls @ 100 mls/hr 03/14/22 12:00 03/14/22 13:33 Chloride IV 03/17/22 00:01 Infused DAILY VICK Infusion Lidocaine 1 patch 03/13/22 19:55 03/14/22 00:44 Lidocaine Patch 5% TOP 1 patch DAILY PRN Administration PAIN Multi-Ingredient Ointment 1 applic 03/12/22 14:10 03/14/22 08:26 Zinc Oxide 20% Oint 30 Gm Tube TOP 1 applic PRN PRN Administration Skin Care Nystatin 1 applic 03/12/22 21:00 03/14/22 08:26 Nystatin Powder 15 Gm TOP 1 applic BID VICK Administration Multivit/Folic Acid/Iron 1 tab 03/14/22 10:00 03/14/22 10:32 Vitamin Tablet PO 1 tab DAILYWM VICK Administration Sodium Chloride 10 ml 03/12/22 17:00 03/14/22 08:26 Sodium Chloride Flush 0.9% 10 Ml Syringe IVP Not Given 0100,0900,1700 VICK Thiamine HCl 100 mg 03/14/22 10:00 03/14/22 10:32 Thiamine 100 Mg Tablet PO 100 mg DAILY VICK Administration - Lab Result Fish Bone Diagrams: 03/14/22 05:37 03/14/22 05:37 - Additional Planning My Orders: My Active Orders 03/13/22 19:55 Lidocaine Patch 5% [Lidoderm Patch] 1 patch TOP DAILY PRN 03/14/22 10:00 Potassium Chlor 10 Meq/100 ml [Potassium Chloride] 10 meq in 100 ml IV Q1H Vitamin [Trinatal Rx 1] 1 tab PO DAILYWM Thiamine [Vitamin B-1] 100 mg PO DAILY 03/14/22 12:00 Multivitamin [Infuvite] 10 ml Thiamine Inj [Vitamin B-1 Inj] 100 mg Magnesium Sulfate 2 gm Folic Acid Inj [Folic Acid] 1 mg Sodium Chloride 0.9% [Normal Saline 0.9%] 1,000 ml IV DAILY Thiamine Inj [Vitamin B-1 Inj] 300 mg Sodium Chloride 0.9% [Normal Saline 0.9%] 50 ml IV DAILY 03/16/22 05:00 COMPREHENSIVE METABOLIC PANEL [CHEM] Timed MAGNESIUM [CHEM] Timed PHOSPHORUS [CHEM] Timed PREALBUMIN [CHEM] Timed 03/19/22 05:00 COMPREHENSIVE METABOLIC PANEL [CHEM] Timed MAGNESIUM [CHEM] Timed PHOSPHORUS [CHEM] Timed PREALBUMIN [CHEM] Timed Subjective - Subjective Patient Reports: Pain (Pain in her spine is worse, since oxycodone stopped.) Nursing Reports: Other (, at bedside, notices that she is more alert, was able to smile, is more talkative, was able to stand and bear weight today.) Objective Vital Signs: Vital Signs - 24 hr 03/13/22 03/13/22 03/14/22 15:56 20:54 01:00 Temperature 36.4 C L 36.4 C L 36.3 C L Heart Rate [ 125 H 108 H 104 H Brachial] Respiratory 18 16 22 Rate Blood Pressure 129/81 H 134/63 H [Left Brachial artery] Blood Pressure 126/62 [Right Brachial artery] O2 Saturation 96 99 98 03/14/22 03/14/22 03/14/22 05:00 07:42 13:33 Temperature 36.4 C L 36.4 C L 36.9 C Heart Rate [ 105 H 104 H 109 H Brachial] Respiratory 22 24 24 Rate Blood Pressure 130/67 134/64 H 101/63 [Left Brachial artery] Blood Pressure [Right Brachial artery] O2 Saturation 99 97 99 Oxygen O2 Source Room air I&O (Last 24 Hrs): Intake and Output Totals x24h 03/12/22 03/13/22 03/14/22 23:59 23:59 23:59 Intake Total 2532.499 2796.941 1750 Output Total 200 550 100 Balance 2332.499 2246.941 1650 General: Alert, Oriented x3, Other (appears fatigued) HEENT: Mucous membr. moist/pink, Other (Icteric sclerae) Neck: Supple, No JVD Neuro: Alert, Non Focal, Other (Affect is flat and then suddenly she smiles. She is less bradykinetic. There is no tremor.) Cardiovascular: Regular rate, No murmurs Respiratory: No respiratory distress, Breath sounds nml Abdomen: Soft, No tenderness, Other (Mildly distended) Extremities: No clubbing, No edema, No tenderness/swelling - Results Results: Laboratory Results WBC 14.3 x10^3/uL (4.8-10.8) H 03/14/22 05:37 RBC 2.90 10^6/uL (4.20-5.40) L 03/14/22 05:37 Hgb 11.6 g/dL (12.0-16.0) L 03/14/22 05:37 Hct 32.4 % (37.0-47.0) L 03/14/22 05:37 MCV 111.7 fL (81.0-99.0) H 03/14/22 05:37 MCH 40.0 pg (27.0-31.0) H 03/14/22 05:37 MCHC 35.8 g/dL (32.0-36.0) 03/14/22 05:37 RDW 14.9 % (12.0-15.0) 03/14/22 05:37 Plt Count 79 10^3/uL (130-450) L 03/14/22 05:37 MPV 11.1 fL (7.9-10.8) H 03/14/22 05:37 Neut # (Auto) Not Reportable 03/14/22 05:37 Lymph # (Auto) Not Reportable 03/14/22 05:37 Roberts # (Auto) Not Reportable 03/14/22 05:37 Eos # (Auto) Not Reportable 03/14/22 05:37 Baso # (Auto) Not Reportable 03/14/22 05:37 Absolute Nucleated RBC Not Reportable 03/14/22 05:37 Total Counted 100 03/14/22 05:37 Band Neuts % (Manual) 9 % (0-10) 03/14/22 05:37 Abnorm Lymph % (Manual) 0 % 03/14/22 05:37 Metamyelocytes % 2 % (-0) H 03/11/22 23:30 Myelocytes % 3 % (-0) H 03/11/22 23:30 Nucleated RBC % Not Reportable 03/14/22 05:37 Neutrophils # (Manual) 11.7 10^3/uL (1.5-6.6) H 03/14/22 05:37 Lymphocytes # (Manual) 1.6 10^3/uL (1.5-3.5) 03/14/22 05:37 Monocytes # (Manual) 1.0 10^3/uL (0.0-1.0) 03/14/22 05:37 Eosinophils # (Manual) 0.0 10^3/uL (0-0.7) 03/14/22 05:37 Basophils # (Manual) 0.0 10^3/uL (0-0.1) 03/14/22 05:37 Nucleated RBCs 2 % 03/11/22 23:30 Differential Comment MANUAL DIFFERENTIAL 03/14/22 05:37 Platelet Estimate DECREASED (<130,000) (NORMAL) 03/14/22 05:37 Platelet Morphology NORMAL APPEARANCE (NORMAL) 03/14/22 05:37 RBC Morph Micro Appear 2+ MACROCYTOSIS (NORMAL) 1+ HYPOCHROMASIA (NORMAL) 03/14/22 05:37 RBC Morph Micro Appear 2+ MACROCYTOSIS (NORMAL) 1+ HYPOCHROMASIA (NORMAL) 03/14/22 05:37 Sodium 133 mmol/L (135-145) L 03/14/22 05:37 Potassium 2.7 mmol/L (3.5-5.0) L 03/14/22 05:37 Chloride 102 mmol/L (101-111) 03/14/22 05:37 Carbon Dioxide 24 mmol/L (21-32) 03/14/22 05:37 Anion Gap 7.0 (6-13) 03/14/22 05:37 BUN 7 mg/dL (6-20) 03/14/22 05:37 Creatinine 0.4 mg/dL (0.4-1.0) 03/14/22 05:37 Estimated GFR (MDRD) 161 (>89) 03/14/22 05:37 Glucose 171 mg/dL (70-100) H 03/14/22 05:37 Lactic Acid 1.8 mmol/L (0.5-2.2) 03/11/22 23:30 Calcium 7.9 mg/dL (8.5-10.3) L 03/14/22 05:37 Phosphorus 1.1 mg/dL (2.5-4.6) L 03/14/22 05:37 Magnesium 1.6 mg/dL (1.7-2.8) L 03/14/22 05:37 Total Bilirubin 4.7 mg/dL (0.2-1.0) H 03/14/22 05:37 AST 92 IU/L (10-42) H 03/14/22 05:37 ALT 61 IU/L (10-60) H 03/14/22 05:37 Alkaline Phosphatase 171 IU/L (42-121) H 03/14/22 05:37 Ammonia 30.0 umol/L (7-35) 03/14/22 05:37 Total Protein 5.5 g/dL (6.7-8.2) L 03/14/22 05:37 Albumin 1.9 g/dL (3.2-5.5) L 03/14/22 05:37 Globulin 3.6 g/dL (2.1-4.2) 03/14/22 05:37 Albumin/Globulin Ratio 0.5 (1.0-2.2) L 03/14/22 05:37 Prealbumin 4 mg/dL (18-45) L 03/14/22 05:37 Gnvry-6-Nbzlekckbzh 244 mg/dL (101-187) H 03/12/22 10:56 Ceruloplasmin 17.0 mg/dL (19.0-39.0) L 03/12/22 10:56 Lipase 80 U/L (22-51) H 03/11/22 23:30 TSH 4.48 uIU/mL (0.34-5.60) 03/11/22 23:30 Urine Color DARK YELLOW 03/12/22 06:42 Urine Clarity HAZY (CLEAR) 03/12/22 06:42 Urine pH 6.0 PH (5.0-7.5) 03/12/22 06:42 Ur Specific [place] 1.020 (1.002-1.030) 03/12/22 06:42 Urine Protein 30 mg/dL (NEGATIVE) H 03/12/22 06:42 Urine Glucose (UA) NEGATIVE mg/dL (NEGATIVE) 03/12/22 06:42 Urine Ketones 40 mg/dL (NEGATIVE) H 03/12/22 06:42 Urine Occult Blood TRACE-INTA (NEGATIVE) 03/12/22 06:42 Urine Nitrite POSITIVE (NEGATIVE) H 03/12/22 06:42 Urine Bilirubin LARGE (NEGATIVE) H 03/12/22 06:42 Urine Urobilinogen 4 E.U./dL (NORMAL) H 03/12/22 06:42 Ur Leukocyte Esterase MODERATE (NEGATIVE) H 03/12/22 06:42 Urine RBC 0-5 /HPF (0-5) 03/12/22 06:42 Urine WBC >25 /HPF (0-5) H 03/12/22 06:42 Ur Squamous Epith Cells RARE Squamous (<= Few) 03/12/22 06:42 Urine Bacteria Many /HPF (None Seen) H 03/12/22 06:42 Ur Microscopic Review INDICATED 03/12/22 06:42 Urine Culture Comments INDICATED 03/12/22 06:42 IgG 1196 mg/dL (586-1602) 03/12/22 10:56 IgM 104 mg/dL (26-217) 03/12/22 10:56 MAXIMO Interpretation Comment (.) 03/12/22 10:56 Anti-sm/[employer] Abs <0.2 AI (0.0-0.9) 03/12/22 10:56 GISELLA-1 Antibody <0.2 AI (0.0-0.9) 03/12/22 10:56 SS-A/Ro Antibody <0.2 AI (0.0-0.9) 03/12/22 10:56 SS-B/La Antibody <0.2 AI (0.0-0.9) 03/12/22 10:56 Sm (Franks) Antibody <0.2 AI (0.0-0.9) 03/12/22 10:56 [employer]PER Antibody <0.2 AI (0.0-0.9) 03/12/22 10:56 Scl-70 Scleroderma Ab <0.2 AI (0.0-0.9) 03/12/22 10:56 Double Strand DNA Ab <1 IU/mL (0-9) 03/12/22 10:56 Ribosomal P Prot Ab <0.2 AI (0.0-0.9) 03/12/22 10:56 Chromatin Antibody <0.2 AI (0.0-0.9) 03/12/22 10:56 Centromere B Antibody <0.2 AI (0.0-0.9) 03/12/22 10:56 Anti-Mitochondrial Ab <20.0 Units (0.0-20.0) 03/12/22 10:56 Anti-Smooth Muscle Ab 17 Units (0-19) 03/12/22 10:56 Hepatitis A IgM Ab Negative (Negative) 03/12/22 10:51 Hep Bs Antigen Negative (Negative) 03/12/22 10:51 Hep Bs Antibody Reactive (.) 03/12/22 10:51 Hep B Core Total Ab Positive (Negative) A 03/12/22 10:51 Hep B Core IgM Ab Negative (Negative) 03/12/22 10:51 Hep B Core IgM Ab Negative (Negative) 03/12/22 10:51 Hepatitis C Antibody <0.1 s/co ratio (0.0-0.9) 03/12/22 10:51 Hepatitis C Interp Comment (.) 03/12/22 10:51 SARS-CoV-2 (PCR) NOT DETECTED 03/12/22 12:20 Sepsis Event Note (H) - Evaluation Current Stage of Sepsis: Ruled out Possible source of Sepsis: negative: GI tract/intra-abdominal
[2022-03-15] MEDS: KETOROLAC 30 MG/ML VIAL IVP PRN ×2 (00:28→12:32)
[2022-03-15] MEDS: SODIUM CHLORIDE FLUSH 0.9% 10 ML SYRINGE IVP SCH ×3 (00:28→15:45)
[2022-03-15 05:55] LABS: BASOPHILS % (AUTO) 0.6 %; EOSINOPHILS % (AUTO) 0.4 %; HCT - HEMATOCRIT 31.5 % (37.0-47.0); HGB - HEMOGLOBIN 10.9 g/dL (12.0-16.0); LYMPHOCYTES % (AUTO) 10.1 %; MEAN CORPUSCULAR HEMOGLOBIN 39.8 pg (27.0-31.0); MEAN CORPUSCULAR HGB CONC 34.6 g/dL (32.0-36.0); MEAN PLATELET VOLUME 11.2 fL (7.9-10.8); MONOCYTES % (AUTO) 7.3 %; NEUTROPHILS % (AUTO) 77.7 %; PLT - PLATELET COUNT 83 10^3/uL (130-450); RED BLOOD COUNT 2.74 10^6/uL (4.20-5.40); RED CELL DISTRIBUTION WIDTH 15.2 % (12.0-15.0); WHITE BLOOD COUNT 15.8 x10^3/uL (4.8-10.8)
[2022-03-15 05:58] LABS: ABNORMAL LYMPHS % (MANUAL) 0 %
[2022-03-15 06:08] LABS: ALBUMIN 1.7 g/dL (3.2-5.5); ALBUMIN/GLOBULIN RATIO 0.5 (1.0-2.2); BILIRUBIN,TOTAL 4.6 mg/dL (0.2-1.0); CALCIUM 7.8 mg/dL (8.5-10.3); CREATININE 0.4 mg/dL (0.4-1.0); POTASSIUM 2.8 mmol/L (3.5-5.0)
[2022-03-15 06:28] LABS: BAND NEUTROPHILS % (MANUAL) 5 %; EOSINOPHILS # (MANUAL) 0.2 10^3/uL (0-0.7); LYMPHOCYTES # (MANUAL) 2.1 10^3/uL (1.5-3.5); LYMPHOCYTES % (MANUAL) 13 %; MONOCYTES # (MANUAL) 1.1 10^3/uL (0.0-1.0); NEUTROPHILS # (MANUAL) 12.5 10^3/uL (1.5-6.6)
[2022-03-15 06:29] LABS: DIFFERENTIAL COMMENT MANUAL DIFFERENTIAL; PLATELET ESTIMATE, MANUAL DECREASED (<130,000) (NORMAL)
--- NOTE | 2022-03-15 08:52 | PROVIDER PROGRESS NOTE ---
Assessment/Plan - Problem List (1) Altered mental status Qualifiers: Altered mental status type: somnolence Qualified Code(s): R40.0 - Somnolence Assessment/Plan: She was brought back to the hospital due to AMS, just 48 hours after recent discharge. reported she was weaker, lethargic and had no oral nutrition intake. We felt she was unable to eat because she has a combination of pancreatitis and liver failure. She had no appetite and was failing at home. She definitely has altered mental status per the , because she was walking and coversant just 2 weeks ago. We had started an NG tube, and started ng feeding to see if her GI tract would tolerate it and started IV fluids. Consideration for a PEG tube had been suggested for the to decide. Because of confusion, she pulled out her NG tube, it was replaced and she pulled it out again, but did get 2 days of ng feeds. She has a flat affect and bradykinesis like a Parkinson's pt or someone overmedicated with narcotics. Her oxycodone was therefore stopped. With that change, she was slightly more alert yesterday, demonstrated facial expressions and was less bradykinetic. We also obtained a brain MRI to evaluate for an ischemic stroke or hemorrhage, given her severely altered mental status. This showed the same brain atrophy as the head CT (done at the last recent admission), but also did show an old stroke. We suspected her AMS was also be from liver failure, and her Ammonia level has risen daily, today is 49. Plan: Will admit the patient to Inpatient status for further management with Lactulose Will remain off narcotics to continue to wash them out of her system. We will give her a chance for further improvement in mentation, and in case this is Wernicke's encephalopathy, by ordering high-dose Thiamine 500 mg IV daily (robin tello is already on 100 mg p.o. daily and we will supplement this with 400 mg more in IV form; 300 mg iv drip, and 100 mg in a Banana Bag). This was started yesterday 03/14, and is planned for today and tomorrow. Follow Ammonia level daily. We will leave the NG tube out and continue with a diet order. Will not pursue the plan of a PEG tube and await to see if her appetite improves. This was discussed with the at bedside, and he is agreeable with this plan. (2) Hypokalemia Conclusion/Plan: Related to poor p.o. intake for the last 2 weeks at least. Despite having iv potassium replacement daily since here (5 K riders of 10meq yesterday, for example), her potassium remains severely low, is 2.7 today. Will admit the patient to inpatient status for further management with iv orders Plan: Will replace with IV K riders Follow BMP q12-24 h (3) Liver failure Conclusion/Plan: Based on the patients history of alcohol use in the last two years, her liver failure is likely due to alcohol abuse. Additional considerations for acute liver failure include drug use, viral hepatitis, Anastacio disease, hemochromatosis, cholangitis, medication side effects. GI recommended getting CBC, PT/PTT, LFTs, CMP, lipase, viral serologies, ceruloplasmin, serum/urine copper, Doppler studies of portal and hepatic veins Qualifiers: Hepatic coma status: without hepatic coma Qualified Code(s): K72.00 - Acute and subacute hepatic failure without coma (4) Cirrhosis of liver Conclusion/Plan: She is presenting with cirrhosis with nonspecific symptoms of anorexia, fatigue, and scleral icterus. Her history is consistent with alcoholic etiology but we also considereded viral hepatitis, autoimmune hepatitis, hemochromatosis, anastacio disease, cholangitis. She is negative for ascites, but does have encephalopathy. Her MELD score was 19, a 6.0% mortality in the next 90 days. We ordered CBC, CMP, ferritin, US w/ doppler, hepatitis serologies. Qualifiers: Hepatic cirrhosis type: alcoholic cirrhosis Ascites presence: without ascites Qualified Code(s): K70.30 - Alcoholic cirrhosis of liver without ascites (5) Alcoholic liver disease Conclusion/Plan: Her history and physical are consistent with alcoholic liver disease. Her MCV is elevated and plts are low, consistent with alcohol abuse. She has said she will never drink again, she will be taking B12, folate and thiamine supplements. Maddrey's score was only 6 points. The GI specialist at [facility] recommended giving her steroids, however this is usually only used with a Maddrey score of 32 so at this time we are holding off on administering steroids. (6) Pancreatitis, acute Conclusion/Plan: The history and physical exam are consistent with alcohol induced acute pancreatitis. However initial considerations for the etiology of her pancreatitis included gallstones, hypertriglyceridemia, familial, infection, neoplasm. Her MRCP on 03/08 showed no biliary ductal dilation or evidence of choledocholithiasis. It was positive for acute pancreatitis, hepatic steatosis, abdominal CT on 03/08 confirmed these findings. GI recommended repeat amylase, lipase, and ALT. GI recommended fluid resuscitation with a goal to reduce BUN and Hct over 24hrs. Plan: IV fluids to continue using a Banana Bag Her oral intake was clear liquids, and today will advance diet to a pureed, hepatic diet, since she has had no N/V. Qualifiers: Pancreatitis type: unspecified pancreatitis type Acute pancreatitis complication: unspecified Qualified Code(s): K85.90 - Acute pancreatitis without necrosis or infection, unspecified (7) Back pain Conclusion/Plan: She was prescribed oxycodone for this pain, which started after a recent fall. She reported still having pain of the whole spine. Plan: We weaned oxycodone down to off because I suspected it was causing her lethargic altered mental status. With that, she became more alert. We ordered lidocaine topically, which was not enough for pain control. We added iv Toradol for pain control, which helped. Will keep this to a minimum, due to low plt count. Will avoid narcotics. (8) Hx of stroke Conclusion/Plan: This is new information obtained from the brain MRI that was done 03/13. Plan: Will not start a daily aspirin because of her alcohol abuse causing thrombocytopenia, but also since we have her on NSAIDs for pain control now She has been malnourished and I doubt her cholesterol is elevated, to start a statin. Will check a fasting lipid panel. (9) Hx of gastric bypass Conclusion/Plan: For this reason, she was supposed to have been on B12 for years. She cannot remember, when asked, if she was taking that or not. Plan: resume daily B12 - Current Meds Current Meds: Current Medications Generic Name Dose Route Start Last Admin Trade Name Freq PRN Reason Stop Dose Admin Multivitamins 10 ml/ Thiamine 1,015.2 mls @ 100 mls/hr 03/14/22 12:00 03/15/22 00:24 HCl 100 mg/ Magnesium Sulfate IV Infused 2 gm/ Folic Acid 1 mg/ Sodium DAILY VICK Infusion Chloride Thiamine HCl 300 mg/ Sodium 53 mls @ 100 mls/hr 03/14/22 12:00 03/14/22 13:33 Chloride IV 03/17/22 00:01 Infused DAILY VICK Infusion Ketorolac Tromethamine 30 mg 03/14/22 15:59 03/15/22 00:28 Ketorolac 30 Mg/Ml Vial IVP 03/19/22 15:58 30 mg Q12H PRN Administration Severe Pain Lidocaine 1 patch 03/13/22 19:55 03/14/22 00:44 Lidocaine Patch 5% TOP 1 patch DAILY PRN Administration PAIN Multi-Ingredient Ointment 1 applic 03/12/22 14:10 03/14/22 08:26 Zinc Oxide 20% Oint 30 Gm Tube TOP 1 applic PRN PRN Administration Skin Care Nystatin 1 applic 03/12/22 21:00 03/14/22 21:00 Nystatin Powder 15 Gm TOP 1 applic BID VICK Administration Multivit/Folic Acid/Iron 1 tab 03/14/22 10:00 03/14/22 10:32 Vitamin Tablet PO 1 tab DAILYWM VICK Administration Sodium Chloride 10 ml 03/12/22 17:00 03/15/22 00:28 Sodium Chloride Flush 0.9% 10 Ml Syringe IVP 10 ml 0100,0900,1700 VICK Administration Thiamine HCl 100 mg 03/14/22 10:00 03/14/22 10:32 Thiamine 100 Mg Tablet PO 100 mg DAILY VICK Administration - Lab Result Fish Bone Diagrams: 03/15/22 05:45 03/15/22 05:45 - Additional Planning My Orders: My Active Orders 03/14/22 10:00 Vitamin [Trinatal Rx 1] 1 tab PO DAILYWM Thiamine [Vitamin B-1] 100 mg PO DAILY 03/14/22 12:00 Multivitamin [Infuvite] 10 ml Thiamine Inj [Vitamin B-1 Inj] 100 mg Magnesium Sulfate 2 gm Folic Acid Inj [Folic Acid] 1 mg Sodium Chloride 0.9% [Normal Saline 0.9%] 1,000 ml IV DAILY Thiamine Inj [Vitamin B-1 Inj] 300 mg Sodium Chloride 0.9% [Normal Saline 0.9%] 50 ml IV DAILY 03/14/22 15:59 Ketorolac Inj (30Mg) [Toradol Inj (30Mg)] 30 mg IVP Q12H PRN 03/15/22 05:45 MAGNESIUM [CHEM] Routine PHOSPHORUS [CHEM] Routine 03/15/22 08:49 Admit [Admit \ Transfer \ Status] [RC] .ONCE 03/15/22 09:00 Lactulose [Enulose] 10 gm PO DAILY Potassium Chloride/Water 10 mEq/100 mL q1h (Enter # of bags) Potassium Chlor 10 Meq/100 ml [Potassium Chloride] 10 meq in 100 ml IV Q1H 03/16/22 05:00 COMPREHENSIVE METABOLIC PANEL [CHEM] Timed MAGNESIUM [CHEM] Timed PHOSPHORUS [CHEM] Timed PREALBUMIN [CHEM] Timed 03/19/22 05:00 COMPREHENSIVE METABOLIC PANEL [CHEM] Timed MAGNESIUM [CHEM] Timed PHOSPHORUS [CHEM] Timed PREALBUMIN [CHEM] Timed Subjective - Subjective Patient Reports: Resting Comfortably (Sitting up, had no complaints) Objective Vital Signs: Vital Signs - 24 hr 03/14/22 03/14/22 03/14/22 13:33 17:00 21:00 Temperature 36.9 C 36.7 C 36.7 C Heart Rate [ 109 H 87 56 L Brachial] Respiratory 24 18 18 Rate Blood Pressure 101/63 [Left Brachial artery] Blood Pressure 124/75 127/73 [Right Brachial artery] O2 Saturation 99 99 98 03/15/22 03/15/22 03/15/22 00:38 01:00 05:00 Temperature 36.7 C 34.6 C L 36.3 C L Heart Rate [ 86 88 88 Brachial] Respiratory 22 18 18 Rate Blood Pressure [Left Brachial artery] Blood Pressure 128/78 113/57 L 115/64 [Right Brachial artery] O2 Saturation 96 95 97 03/15/22 08:42 Temperature 36.4 C L Heart Rate [ 90 Brachial] Respiratory 18 Rate Blood Pressure [Left Brachial artery] Blood Pressure 106/58 L [Right Brachial artery] O2 Saturation 98 Oxygen O2 Source Room air I&O (Last 24 Hrs): Intake and Output Totals x24h 03/13/22 03/14/22 03/15/22 23:59 23:59 23:59 Intake Total 2796.941 2250 1015.2 Output Total 550 400 0 Balance 2246.941 1850 1015.2 General: Alert HEENT: Mucous membr. moist/pink, Other (Sclerae icteric) Neck: Supple, No JVD Neuro: Alert, Disoriented, Non Focal (No tremor) Cardiovascular: Regular rate Respiratory: No respiratory distress Abdomen: No tenderness, Other (Mild distension) Extremities: No clubbing, No edema - Results Results: Laboratory Results WBC 15.8 x10^3/uL (4.8-10.8) H 03/15/22 05:45 RBC 2.74 10^6/uL (4.20-5.40) L 03/15/22 05:45 Hgb 10.9 g/dL (12.0-16.0) L 03/15/22 05:45 Hct 31.5 % (37.0-47.0) L 03/15/22 05:45 MCV 115.0 fL (81.0-99.0) H 03/15/22 05:45 MCH 39.8 pg (27.0-31.0) H 03/15/22 05:45 MCHC 34.6 g/dL (32.0-36.0) 03/15/22 05:45 RDW 15.2 % (12.0-15.0) H 03/15/22 05:45 Plt Count 83 10^3/uL (130-450) L 03/15/22 05:45 MPV 11.2 fL (7.9-10.8) H 03/15/22 05:45 Neut # (Auto) Not Reportable 03/15/22 05:45 Lymph # (Auto) Not Reportable 03/15/22 05:45 [place] # (Auto) Not Reportable 03/15/22 05:45 Eos # (Auto) Not Reportable 03/15/22 05:45 Baso # (Auto) Not Reportable 03/15/22 05:45 Absolute Nucleated RBC Not Reportable 03/15/22 05:45 Total Counted 100 03/15/22 05:45 Band Neuts % (Manual) 5 % (0-10) 03/15/22 05:45 Abnorm Lymph % (Manual) 0 % 03/15/22 05:45 Metamyelocytes % 2 % (-0) H 03/11/22 23:30 Myelocytes % 3 % (-0) H 03/11/22 23:30 Nucleated RBC % Not Reportable 03/15/22 05:45 Neutrophils # (Manual) 12.5 10^3/uL (1.5-6.6) H 03/15/22 05:45 Lymphocytes # (Manual) 2.1 10^3/uL (1.5-3.5) 03/15/22 05:45 Monocytes # (Manual) 1.1 10^3/uL (0.0-1.0) H 03/15/22 05:45 Eosinophils # (Manual) 0.2 10^3/uL (0-0.7) 03/15/22 05:45 Basophils # (Manual) 0.0 10^3/uL (0-0.1) 03/15/22 05:45 Nucleated RBCs 2 % 03/11/22 23:30 Differential Comment MANUAL DIFFERENTIAL 03/15/22 05:45 Platelet Estimate DECREASED (<130,000) (NORMAL) 03/15/22 05:45 Platelet Morphology NORMAL APPEARANCE (NORMAL) 03/14/22 05:37 RBC Morph Micro Appear 3+ MACROCYTOSIS (NORMAL) 1+ HYPOCHROMASIA (NORMAL) 03/15/22 05:45 RBC Morph Micro Appear 3+ MACROCYTOSIS (NORMAL) 1+ HYPOCHROMASIA (NORMAL) 03/15/22 05:45 Sodium 134 mmol/L (135-145) L 03/15/22 05:45 Potassium 2.8 mmol/L (3.5-5.0) L 03/15/22 05:45 Chloride 106 mmol/L (101-111) 03/15/22 05:45 Carbon Dioxide 21 mmol/L (21-32) 03/15/22 05:45 Anion Gap 7.0 (6-13) 03/15/22 05:45 BUN 9 mg/dL (6-20) 03/15/22 05:45 Creatinine 0.4 mg/dL (0.4-1.0) 03/15/22 05:45 Estimated GFR (MDRD) 161 (>89) 03/15/22 05:45 Glucose 102 mg/dL (70-100) H 03/15/22 05:45 Lactic Acid 1.8 mmol/L (0.5-2.2) 03/11/22 23:30 Calcium 7.8 mg/dL (8.5-10.3) L 03/15/22 05:45 Phosphorus 1.1 mg/dL (2.5-4.6) L 03/14/22 05:37 Magnesium 1.6 mg/dL (1.7-2.8) L 03/14/22 05:37 Total Bilirubin 4.6 mg/dL (0.2-1.0) H 03/15/22 05:45 AST 89 IU/L (10-42) H 03/15/22 05:45 ALT 58 IU/L (10-60) 03/15/22 05:45 Alkaline Phosphatase 149 IU/L (42-121) H 03/15/22 05:45 Ammonia 49.5 umol/L (7-35) H 03/15/22 05:45 Total Protein 5.0 g/dL (6.7-8.2) L 03/15/22 05:45 Albumin 1.7 g/dL (3.2-5.5) L 03/15/22 05:45 Globulin 3.3 g/dL (2.1-4.2) 03/15/22 05:45 Albumin/Globulin Ratio 0.5 (1.0-2.2) L 03/15/22 05:45 Prealbumin 4 mg/dL (18-45) L 03/14/22 05:37 Dshrn-3-Yxpoavaazit 244 mg/dL (101-187) H 03/12/22 10:56 Ceruloplasmin 17.0 mg/dL (19.0-39.0) L 03/12/22 10:56 Lipase 80 U/L (22-51) H 03/11/22 23:30 TSH 4.48 uIU/mL (0.34-5.60) 03/11/22 23:30 Urine Color DARK YELLOW 03/12/22 06:42 Urine Clarity HAZY (CLEAR) 03/12/22 06:42 Urine pH 6.0 PH (5.0-7.5) 03/12/22 06:42 Ur Specific [place] 1.020 (1.002-1.030) 03/12/22 06:42 Urine Protein 30 mg/dL (NEGATIVE) H 03/12/22 06:42 Urine Glucose (UA) NEGATIVE mg/dL (NEGATIVE) 03/12/22 06:42 Urine Ketones 40 mg/dL (NEGATIVE) H 03/12/22 06:42 Urine Occult Blood TRACE-INTA (NEGATIVE) 03/12/22 06:42 Urine Nitrite POSITIVE (NEGATIVE) H 03/12/22 06:42 Urine Bilirubin LARGE (NEGATIVE) H 03/12/22 06:42 Urine Urobilinogen 4 E.U./dL (NORMAL) H 03/12/22 06:42 Ur Leukocyte Esterase MODERATE (NEGATIVE) H 03/12/22 06:42 Urine RBC 0-5 /HPF (0-5) 03/12/22 06:42 Urine WBC >25 /HPF (0-5) H 03/12/22 06:42 Ur Squamous Epith Cells RARE Squamous (<= Few) 03/12/22 06:42 Urine Bacteria Many /HPF (None Seen) H 03/12/22 06:42 Ur Microscopic Review INDICATED 03/12/22 06:42 Urine Culture Comments INDICATED 03/12/22 06:42 IgG 1196 mg/dL (586-1602) 03/12/22 10:56 IgM 104 mg/dL (26-217) 03/12/22 10:56 MAXIMO Interpretation Comment (.) 03/12/22 10:56 Anti-sm/LIGHTOUT EXAMINER Abs <0.2 AI (0.0-0.9) 03/12/22 10:56 GISELLA-1 Antibody <0.2 AI (0.0-0.9) 03/12/22 10:56 SS-A/Ro Antibody <0.2 AI (0.0-0.9) 03/12/22 10:56 SS-B/La Antibody <0.2 AI (0.0-0.9) 03/12/22 10:56 Sm (Franks) Antibody <0.2 AI (0.0-0.9) 03/12/22 10:56 LIGHTOUT EXAMINER Antibody <0.2 AI (0.0-0.9) 03/12/22 10:56 Scl-70 Scleroderma Ab <0.2 AI (0.0-0.9) 03/12/22 10:56 Double Strand DNA Ab <1 IU/mL (0-9) 03/12/22 10:56 Ribosomal P Prot Ab <0.2 AI (0.0-0.9) 03/12/22 10:56 Chromatin Antibody <0.2 AI (0.0-0.9) 03/12/22 10:56 Centromere B Antibody <0.2 AI (0.0-0.9) 03/12/22 10:56 Anti-Mitochondrial Ab <20.0 Units (0.0-20.0) 03/12/22 10:56 Anti-Smooth Muscle Ab 17 Units (0-19) 03/12/22 10:56 Hepatitis A IgM Ab Negative (Negative) 03/12/22 10:51 Hep Bs Antigen Negative (Negative) 03/12/22 10:51 Hep Bs Antibody Reactive (.) 03/12/22 10:51 Hep B Core Total Ab Positive (Negative) A 03/12/22 10:51 Hep B Core IgM Ab Negative (Negative) 03/12/22 10:51 Hep B Core IgM Ab Negative (Negative) 03/12/22 10:51 Hepatitis C Antibody <0.1 s/co ratio (0.0-0.9) 03/12/22 10:51 Hepatitis C Interp Comment (.) 03/12/22 10:51 SARS-CoV-2 (PCR) NOT DETECTED 03/12/22 12:20 Sepsis Event Note (H) - Evaluation Current Stage of Sepsis: Ruled out Possible source of Sepsis: negative: GI tract/intra-abdominal
[2022-03-15] MEDS: PRENATAL VITAMIN TABLET PO SCH (09:28)
[2022-03-15] MEDS: THIAMINE 100 MG TABLET PO SCH (09:28)
[2022-03-15] MEDS: LACTULOSE 10 GM /15 ML UDC PO SCH (09:28)
[2022-03-15] MEDS: THIAMINE INJ 300 MG in SODIUM CHLORIDE 0.9% 50 ML IV SCH (09:29)
[2022-03-15] MEDS: NYSTATIN POWDER 15 GM TOP SCH ×2 (09:29→20:16)
[2022-03-15 10:21] LABS: CHOL/HDL RATIO 11.5 (<4.4); CHOLESTEROL 92 mg/dL; HDL CHOLESTEROL 8 mg/dL; LDL CHOLESTEROL,CALCULATED 70 mg/dL; LDL/HDL RATIO 8.8 (<4.4); TRIGLYCERIDES 69 mg/dL; VLDL CHOLESTEROL 14 mg/dL
[2022-03-15] MEDS: POTASSIUM CHLOR 10 MEQ/100 ML 10 MEQ/100 ML BAG IV SCH ×5 (10:23→18:52)
[2022-03-15] MEDS: CYANOCOBALAMIN 500 MCG TABLET PO SCH (10:23)
[2022-03-15] MEDS: MULTIVITAMIN 10 ML, THIAMINE INJ 100 MG, MAGNESIUM SULFATE 2 GM, FOLIC ACID INJ 1 MG in... IV SCH ×5 (10:23)
[2022-03-15] MEDS: SODIUM CHLORIDE FLUSH 0.9% 10 ML SYRINGE IVP PRN (10:24)
[2022-03-15 10:33] LABS: PHOSPHORUS 1.6 mg/dL (2.5-4.6)
[2022-03-16] MEDS: SODIUM CHLORIDE FLUSH 0.9% 10 ML SYRINGE IVP SCH ×3 (00:36→17:36)
[2022-03-16] MEDS: ZINC OXIDE 20% OINT 30 GM TUBE TOP PRN (02:06)
[2022-03-16 05:17] LABS: BASOPHILS # (AUTO) 0.2 10^3/uL (0.0-0.1); BASOPHILS % (AUTO) 0.9 %; EOSINOPHILS # (AUTO) 0.1 10^3/uL (0.0-0.7); EOSINOPHILS % (AUTO) 0.4 %; HCT - HEMATOCRIT 30.9 % (37.0-47.0); HGB - HEMOGLOBIN 10.5 g/dL (12.0-16.0); LYMPHOCYTES # (AUTO) 1.4 10^3/uL (1.5-3.5); LYMPHOCYTES % (AUTO) 8.8 %; MEAN CORPUSCULAR HEMOGLOBIN 39.3 pg (27.0-31.0); MEAN CORPUSCULAR VOLUME 115.7 fL (81.0-99.0); MONOCYTES # (AUTO) 0.9 10^3/uL (0.0-1.0); MONOCYTES % (AUTO) 5.7 %; NEUTROPHILS # (AUTO) 13.1 10^3/uL (1.5-6.6); NEUTROPHILS % (AUTO) 81.7 %; NRBC ABSOLUTE COUNT (AUTO) 0.02 x10^3/uL; NUCLEATED RED BLOOD CELLS AUTO 0.1 /100WBC; PLT - PLATELET COUNT 92 10^3/uL (130-450); RED BLOOD COUNT 2.67 10^6/uL (4.20-5.40); RED CELL DISTRIBUTION WIDTH 15.4 % (12.0-15.0); WHITE BLOOD COUNT 16.1 x10^3/uL (4.8-10.8)
[2022-03-16 05:24] LABS: SLIDE REVIEW? Indicated
[2022-03-16 05:29] LABS: ALBUMIN 1.6 g/dL (3.2-5.5); ALBUMIN/GLOBULIN RATIO 0.5 (1.0-2.2); BILIRUBIN,TOTAL 4.3 mg/dL (0.2-1.0); CALCIUM 7.7 mg/dL (8.5-10.3); CREATININE 0.3 mg/dL (0.4-1.0); POTASSIUM 2.9 mmol/L (3.5-5.0); TOTAL PROTEIN 5.1 g/dL (6.7-8.2)
[2022-03-16 05:31] LABS: MAGNESIUM 2.1 mg/dL (1.7-2.8); PHOSPHORUS 1.7 mg/dL (2.5-4.6)
[2022-03-16 05:53] LABS: PLATELET ESTIMATE, MANUAL DECREASED (<130,000) (NORMAL)
[2022-03-16] MEDS: THIAMINE 100 MG TABLET PO SCH (09:37)
[2022-03-16] MEDS: LACTULOSE 10 GM /15 ML UDC PO SCH (09:38)
[2022-03-16] MEDS: CYANOCOBALAMIN 500 MCG TABLET PO SCH (09:38)
[2022-03-16] MEDS: NYSTATIN POWDER 15 GM TOP SCH ×2 (09:38→17:37)
[2022-03-16] MEDS: PRENATAL VITAMIN TABLET PO SCH (09:38)
[2022-03-16] MEDS: THIAMINE INJ 300 MG in SODIUM CHLORIDE 0.9% 50 ML IV SCH (10:35)
[2022-03-16] MEDS: POTASSIUM CHLOR 10 MEQ/100 ML 10 MEQ/100 ML BAG IV SCH ×4 (11:09→14:30)
[2022-03-16] MEDS: SODIUM CHLORIDE FLUSH 0.9% 10 ML SYRINGE IVP PRN (11:14)
[2022-03-16] MEDS: NEUTRA-PHOS 250 MG TABLET PO SCH ×2 (12:08→17:36)
[2022-03-16] MEDS ORDERED: MULTIVITAMIN IV SCH ×6 (14:00)
[2022-03-16] MEDS ORDERED: MAGNESIUM SULFATE IV SCH ×6 (14:00)
[2022-03-16] MEDS ORDERED: THIAMINE IV SCH ×6 (14:00)
[2022-03-16] MEDS ORDERED: [UNRECOGNIZED DRUG - OTHER] IV SCH ×6 (14:00)
[2022-03-16] MEDS ORDERED: FOLIC ACID IV SCH ×6 (14:00)
--- NOTE | 2022-03-16 16:00 | PROVIDER PROGRESS NOTE ---
Assessment/Plan - Problem List (1) Altered mental status Qualifiers: Altered mental status type: somnolence Qualified Code(s): R40.0 - Somnolence Assessment/Plan: She was brought back to the hospital due to AMS, just 48 hours after recent discharge. reported she was weaker, lethargic and had no oral nutrition intake. We felt she was unable to eat because she has a combination of pancreatitis and liver failure. She had no appetite and was failing at home. She definitely has altered mental status per the , because she was walking and coversant just 2 weeks ago. We had started an NG tube, and started ng feeding to see if her GI tract would tolerate it and started IV fluids. Consideration for a PEG tube had been suggested for the to decide. Because of confusion, she pulled out her NG tube, it was replaced and she pulled it out again, but did get 2 days of ng feeds. She has a flat affect and bradykinesis like a Parkinson's pt or someone overmedicated with narcotics. Her oxycodone was therefore stopped. With that change, she was slightly more alert yesterday, demonstrated facial expressions and was less bradykinetic. We also obtained a brain MRI to evaluate for an ischemic stroke or hemorrhage, given her severely altered mental status. This showed the same brain atrophy as the head CT (done at the last recent admission), but also did show an old stroke. We suspected her AMS was also be from liver failure, and her Ammonia level has risen daily, today is 49. Plan: We admitted the patient to Inpatient status for further management. Will remain off narcotics to continue to wash them out of her system. We will give her a chance for further improvement in mentation, and in case this is Wernicke's encephalopathy, by ordering high-dose Thiamine 500 mg IV daily (she is already on 100 mg p.o. daily and we will supplement this with 400 mg more in IV form; 300 mg iv drip, and 100 mg in a Banana Bag). This was started 03/14, and is planned for 3 days, then back to 100 mg daily. Follow Ammonia level daily. Lactulose daily ordered We will leave the NG tube out and continue with advancing a diet order. Will not pursue the plan of a PEG tube and await to see if her appetite improves. This was discussed with the at bedside, and he is agreeable with this plan. (2) Hypokalemia Conclusion/Plan: Related to poor p.o. intake for the last 2 weeks at least. Despite having iv potassium replacement daily since here (5 K riders of 10meq yesterday, for example), her potassium remains severely low, is 2.7 today. We admitted the patient from Observation to Inpatient status for further management with iv orders Plan: Will replace with IV K riders, and po and in her Banana Bag Follow BMP q12-24 h (3) Hematuria Conclusion/Plan: This is a new finding today. Cultures had been done at admission and when her urine cx turned positive yesterday, for E. coli, we asked her if she had any symptoms like dysuria. The patient denied it, thus we considered it a contaminent. However, now we think that the patient is unable to report those kind of symptoms because of her encephalopathy. (4) E coli UTI Conclusion/Plan: Cultures had been done at admission and her urine turned positive yesterday for E. coli. It is pansensitive. Plan: Will start iv Ceftriaxone (5) Liver failure Conclusion/Plan: Based on the patients history of alcohol use in the last two years, her liver failure is likely due to alcohol abuse. Additional considerations for acute liver failure include drug use, viral hepatitis, Anastacio disease, hemochromatosis, cholangitis, medication side effects. GI recommended getting CBC, PT/PTT, LFTs, CMP, lipase, viral serologies, ceruloplasmin, serum/urine copper, Doppler studies of portal and hepatic veins Qualifiers: Hepatic coma status: without hepatic coma Qualified Code(s): K72.00 - Acute and subacute hepatic failure without coma (6) Cirrhosis of liver Conclusion/Plan: She is presenting with cirrhosis with nonspecific symptoms of anorexia, fatigue, and scleral icterus. Her history is consistent with alcoholic etiology but we also considereded viral hepatitis, autoimmune hepatitis, hemochromatosis, anastacio disease, cholangitis. She is negative for ascites, but does have encephalopathy. Her MELD score was 19, a 6.0% mortality in the next 90 days. We ordered CBC, CMP, ferritin, US w/ doppler, hepatitis serologies. Qualifiers: Hepatic cirrhosis type: alcoholic cirrhosis Ascites presence: without ascites Qualified Code(s): K70.30 - Alcoholic cirrhosis of liver without ascites (7) Alcoholic liver disease Conclusion/Plan: Her history and physical are consistent with alcoholic liver disease. Her MCV is elevated and plts are low, consistent with alcohol abuse. She has said she will never drink again, she will be taking B12, folate and thiamine supplements. Maddrey's score was only 6 points. The GI specialist at [facility] recommended giving her steroids, however this is usually only used with a Maddrey score of 32 so at this time we are holding off on administering steroids. (8) Pancreatitis, acute Conclusion/Plan: The history and physical exam are consistent with alcohol induced acute pancreatitis. However initial considerations for the etiology of her pancreatitis included gallstones, hypertriglyceridemia, familial, infection, neoplasm. Her MRCP on 03/08 showed no biliary ductal dilation or evidence of choledocholithiasis. It was positive for acute pancreatitis, hepatic steatosis, abdominal CT on 03/08 confirmed these findings. GI recommended repeat amylase, lipase, and ALT. GI recommended fluid resuscitation with a goal to reduce BUN and Hct over 24hrs. Plan: IV fluids to continue using a Banana Bag Her oral intake was clear liquids, and today will advance diet to a pureed, hepatic diet, since she has had no N/V. Qualifiers: Pancreatitis type: unspecified pancreatitis type Acute pancreatitis complication: unspecified Qualified Code(s): K85.90 - Acute pancreatitis without necrosis or infection, unspecified (9) Back pain Conclusion/Plan: She had been prescribed oxycodone for back pain, which started after a recent fall. At admission, she reported still having pain of the whole spine. Plan: We weaned oxycodone down to off because I suspected it was causing her lethargic altered mental status. With that, she became more alert. We ordered lidocaine topically, which was not enough for pain control. We added iv Toradol for pain control, which helped. Will keep this to a minimum, due to low plt count. Will avoid narcotics. (10) Hx of stroke Conclusion/Plan: This is new information obtained from the brain MRI that was done 03/13. Plan: Will not start a daily aspirin because of her alcohol abuse causing t hrombocytopenia, but also since we have her on NSAIDs for pain control now She has been malnourished and I doubt her cholesterol is elevated, to start a statin. Will check a fasting lipid panel. (11) Hx of gastric bypass Conclusion/Plan: For this reason, she was supposed to have been on B12 for years. She cannot remember, when asked, if she was taking that or not. Plan: resume daily B12 - Current Meds Current Meds: Current Medications Generic Name Dose Route Start Last Admin Trade Name Cesar PRN Reason Stop Dose Admin Cyanocobalamin 500 mcg 03/15/22 10:00 03/16/22 09:38 Cyanocobalamin 500 Mcg Tablet PO 500 mcg DAILY VICK Administration Thiamine HCl 300 mg/ Sodium 53 mls @ 100 mls/hr 03/14/22 12:00 03/16/22 11:07 Chloride IV 03/17/22 00:01 Infused DAILY VICK Infusion Multivitamins 10 ml/ Thiamine 1,025.2 mls @ 100 mls/hr 03/16/22 14:00 14:28 HCl 100 mg/ Magnesium Sulfate IV 100 mls/hr 2 gm/ Folic Acid 1 mg/ 1400 VICK Administration Potassium Chloride 20 meq/ Sodium Chloride Ketorolac Tromethamine 30 mg 03/14/22 15:59 03/15/22 12:32 Ketorolac 30 Mg/Ml Vial IVP 03/19/22 15:58 30 mg Q12H PRN Administration Severe Pain Lactulose 10 gm 03/15/22 09:00 03/16/22 09:38 Lactulose 10 Gm /15 Ml Udc PO 10 gm DAILY VICK Administration Lidocaine 1 patch 03/13/22 19:55 03/14/22 00:44 Lidocaine Patch 5% TOP 1 patch DAILY PRN Administration PAIN Multi-Ingredient Ointment 1 applic 03/12/22 14:10 03/16/22 02:06 Zinc Oxide 20% Oint 30 Gm Tube TOP 1 applic PRN PRN Administration Skin Care Nystatin 1 applic 03/12/22 21:00 03/16/22 09:38 Nystatin Powder 15 Gm TOP 1 applic BID VICK Administration Multivit/Folic Acid/Iron 1 tab 03/14/22 10:00 03/16/22 09:38 Vitamin Tablet PO 1 tab DAILYWM VICK Administration Sodium Chloride 10 ml 03/12/22 12:14 03/16/22 11:14 Sodium Chloride Flush 0.9% 10 Ml Syringe IVP 10 ml PRN PRN Administration NEEDED PER PROVIDER ORDERS Sodium Chloride 10 ml 03/12/22 17:00 03/16/22 09:38 Sodium Chloride Flush 0.9% 10 Ml Syringe IVP 10 ml 0100,0900,1700 VICK Administration Sodium Phosphate 250 mg 03/16/22 12:00 03/16/22 12:08 Neutra-Phos 250 Mg Tablet PO 250 mg TIDWM VICK Administration Thiamine HCl 100 mg 03/14/22 10:00 03/16/22 09:37 Thiamine 100 Mg Tablet PO 100 mg DAILY VICK Administration - Lab Result Fish Bone Diagrams: 03/16/22 05:06 03/16/22 05:06 - Additional Planning My Orders: My Active Orders 03/16/22 12:00 Neutra-Phos [K-Phos Neutral] 250 mg PO TIDWM 03/16/22 14:00 Multivitamin [Infuvite] 10 ml Thiamine Inj [Vitamin B-1 Inj] 100 mg Magnesium Sulfate 2 gm Folic Acid Inj [Folic Acid] 1 mg Potassium Chloride Inj [Potassium Chloride] 20 meq Sodium Chloride 0.9% [Normal Saline 0.9%] 1,000 ml IV 1400 03/17/22 Evaluate and Treat OT [OT] Routine Evaluate and Treat PT [PT] Routine 03/19/22 05:00 COMPREHENSIVE METABOLIC PANEL [CHEM] Timed MAGNESIUM [CHEM] Timed PHOSPHORUS [CHEM] Timed PREALBUMIN [CHEM] Timed Subjective - Subjective Patient Reports: Resting Comfortably Nursing Reports: Other (RN reports she has hematuria) Objective Vital Signs: Vital Signs - 24 hr 03/15/22 03/16/22 03/16/22 16:52 01:35 02:21 Temperature 36.5 C 34.8 C L 37.3 C Heart Rate [ 89 94 Brachial] Respiratory 16 18 Rate Blood Pressure 124/67 [Left Brachial artery] Blood Pressure 133/78 H [Right Brachial artery] O2 Saturation 99 98 03/16/22 09:39 Temperature 36.4 C L Heart Rate [ 99 Brachial] Respiratory 20 Rate Blood Pressure [Left Brachial artery] Blood Pressure 127/71 [Right Brachial artery] O2 Saturation 97 Oxygen O2 Source Room air I&O (Last 24 Hrs): Intake and Output Totals x24h 03/14/22 03/15/22 03/16/22 23:59 23:59 23:59 Intake Total 2250 3173.4 843 Output Total 400 0 0 Balance 1850 3173.4 843 General: Alert HEENT: Mucous membr. moist/pink, Other (Icteric sclerae) Neck: Supple Neuro: Alert, Non Focal, Other (Bradykinetic) Cardiovascular: Regular rate, No murmurs Respiratory: No respiratory distress Abdomen: Soft, No tenderness, Other (Mildly distended) Extremities: No clubbing, No edema, No tenderness/swelling - Results Results: Laboratory Results WBC 16.1 x10^3/uL (4.8-10.8) H 03/16/22 05:06 RBC 2.67 10^6/uL (4.20-5.40) L 03/16/22 05:06 Hgb 10.5 g/dL (12.0-16.0) L 03/16/22 05:06 Hct 30.9 % (37.0-47.0) L 03/16/22 05:06 MCV 115.7 fL (81.0-99.0) H 03/16/22 05:06 MCH 39.3 pg (27.0-31.0) H 03/16/22 05:06 MCHC 34.0 g/dL (32.0-36.0) 03/16/22 05:06 RDW 15.4 % (12.0-15.0) H 03/16/22 05:06 Plt Count 92 10^3/uL (130-450) L 03/16/22 05:06 MPV 11.0 fL (7.9-10.8) H 03/16/22 05:06 Neut # (Auto) 13.1 10^3/uL (1.5-6.6) H 03/16/22 05:06 Lymph # (Auto) 1.4 10^3/uL (1.5-3.5) L 03/16/22 05:06 [place] # (Auto) 0.9 10^3/uL (0.0-1.0) 03/16/22 05:06 Eos # (Auto) 0.1 10^3/uL (0.0-0.7) 03/16/22 05:06 Baso # (Auto) 0.2 10^3/uL (0.0-0.1) H 03/16/22 05:06 Absolute Nucleated RBC 0.02 x10^3/uL 03/16/22 05:06 Total Counted 100 03/15/22 05:45 Band Neuts % (Manual) 5 % (0-10) 03/15/22 05:45 Abnorm Lymph % (Manual) 0 % 03/15/22 05:45 Metamyelocytes % 2 % (-0) H 03/11/22 23:30 Myelocytes % 3 % (-0) H 03/11/22 23:30 Nucleated RBC % 0.1 /100WBC 03/16/22 05:06 Neutrophils # (Manual) 12.5 10^3/uL (1.5-6.6) H 03/15/22 05:45 Lymphocytes # (Manual) 2.1 10^3/uL (1.5-3.5) 03/15/22 05:45 Monocytes # (Manual) 1.1 10^3/uL (0.0-1.0) H 03/15/22 05:45 Eosinophils # (Manual) 0.2 10^3/uL (0-0.7) 03/15/22 05:45 Basophils # (Manual) 0.0 10^3/uL (0-0.1) 03/15/22 05:45 Nucleated RBCs 2 % 03/11/22 23:30 Differential Comment MANUAL DIFFERENTIAL 03/15/22 05:45 Manual Slide Review Indicated 03/16/22 05:06 Platelet Estimate DECREASED (<130,000) (NORMAL) 03/16/22 05:06 Platelet Morphology NORMAL APPEARANCE (NORMAL) 03/14/22 05:37 RBC Morph Micro Appear 3+ MACROCYTOSIS (NORMAL) 1+ HYPOCHROMASIA (NORMAL) 03/16/22 05:06 RBC Morph Micro Appear 3+ MACROCYTOSIS (NORMAL) 1+ HYPOCHROMASIA (NORMAL) 03/16/22 05:06 Sodium 132 mmol/L (135-145) L 03/16/22 05:06 Potassium 2.9 mmol/L (3.5-5.0) L 03/16/22 05:06 Chloride 103 mmol/L (101-111) 03/16/22 05:06 Carbon Dioxide 20 mmol/L (21-32) L 03/16/22 05:06 Anion Gap 9.0 (6-13) 03/16/22 05:06 BUN 7 mg/dL (6-20) 03/16/22 05:06 Creatinine 0.3 mg/dL (0.4-1.0) L 03/16/22 05:06 Estimated GFR (MDRD) 225 (>89) 03/16/22 05:06 Glucose 94 mg/dL (70-100) 03/16/22 05:06 Lactic Acid 1.8 mmol/L (0.5-2.2) 03/11/22 23:30 Calcium 7.7 mg/dL (8.5-10.3) L 03/16/22 05:06 Phosphorus 1.7 mg/dL (2.5-4.6) L 03/16/22 05:06 Magnesium 2.1 mg/dL (1.7-2.8) 03/16/22 05:06 Total Bilirubin 4.3 mg/dL (0.2-1.0) H 03/16/22 05:06 AST 83 IU/L (10-42) H 03/16/22 05:06 ALT 55 IU/L (10-60) 03/16/22 05:06 Alkaline Phosphatase 151 IU/L (42-121) H 03/16/22 05:06 Ammonia 31.2 umol/L (7-35) 03/16/22 05:06 Total Protein 5.1 g/dL (6.7-8.2) L 03/16/22 05:06 Albumin 1.6 g/dL (3.2-5.5) L 03/16/22 05:06 Globulin 3.5 g/dL (2.1-4.2) 03/16/22 05:06 Albumin/Globulin Ratio 0.5 (1.0-2.2) L 03/16/22 05:06 Prealbumin 4 mg/dL (18-45) L 03/16/22 05:06 [id number] 244 mg/dL (101-187) H 03/12/22 10:56 Ceruloplasmin 17.0 mg/dL (19.0-39.0) L 03/12/22 10:56 Triglycerides 69 mg/dL (-149) 03/15/22 05:45 Cholesterol 92 mg/dL (-199) 03/15/22 05:45 LDL Cholesterol, Calc 70 mg/dL (-129) 03/15/22 05:45 VLDL Cholesterol 14 mg/dL 03/15/22 05:45 HDL Cholesterol 8 mg/dL (60-) L 03/15/22 05:45 LDL/HDL Ratio 8.8 (<4.4) 03/15/22 05:45 Cholesterol/HDL Ratio 11.5 (<4.4) 03/15/22 05:45 Lipase 66 U/L (22-51) H 03/15/22 05:45 TSH 4.48 uIU/mL (0.34-5.60) 03/11/22 23:30 Urine Color DARK YELLOW 03/12/22 06:42 Urine Clarity HAZY (CLEAR) 03/12/22 06:42 Urine pH 6.0 PH (5.0-7.5) 03/12/22 06:42 Ur Specific Meredith 1.020 (1.002-1.030) 03/12/22 06:42 Urine Protein 30 mg/dL (NEGATIVE) H 03/12/22 06:42 Urine Glucose (UA) NEGATIVE mg/dL (NEGATIVE) 03/12/22 06:42 Urine Ketones 40 mg/dL (NEGATIVE) H 03/12/22 06:42 Urine Occult Blood TRACE-INTA (NEGATIVE) 03/12/22 06:42 Urine Nitrite POSITIVE (NEGATIVE) H 03/12/22 06:42 Urine Bilirubin LARGE (NEGATIVE) H 03/12/22 06:42 Urine Urobilinogen 4 E.U./dL (NORMAL) H 03/12/22 06:42 Ur Leukocyte Esterase MODERATE (NEGATIVE) H 03/12/22 06:42 Urine RBC 0-5 /HPF (0-5) 03/12/22 06:42 Urine WBC >25 /HPF (0-5) H 03/12/22 06:42 Ur Squamous Epith Cells RARE Squamous (<= Few) 03/12/22 06:42 Urine Bacteria Many /HPF (None Seen) H 03/12/22 06:42 Ur Microscopic Review INDICATED 03/12/22 06:42 Urine Culture Comments INDICATED 03/12/22 06:42 IgG 1196 mg/dL (586-1602) 03/12/22 10:56 IgM 104 mg/dL (26-217) 03/12/22 10:56 MAXIMO Interpretation Comment (.) 03/12/22 10:56 Anti-sm/W[employer]ING RELAY ADJUSTER Abs <0.2 AI (0.0-0.9) 03/12/22 10:56 GISELLA-1 Antibody <0.2 AI (0.0-0.9) 03/12/22 10:56 SS-A/Ro Antibody <0.2 AI (0.0-0.9) 03/12/22 10:56 SS-B/La Antibody <0.2 AI (0.0-0.9) 03/12/22 10:56 Sm (Franks) Antibody <0.2 AI (0.0-0.9) 03/12/22 10:56 WIRE SPRING RELAY ADJUSTER Antibody <0.2 AI (0.0-0.9) 03/12/22 10:56 Scl-70 Scleroderma Ab <0.2 AI (0.0-0.9) 03/12/22 10:56 Double Strand DNA Ab <1 IU/mL (0-9) 03/12/22 10:56 Ribosomal P Prot Ab <0.2 AI (0.0-0.9) 03/12/22 10:56 Chromatin Antibody <0.2 AI (0.0-0.9) 03/12/22 10:56 Centromere B Antibody <0.2 AI (0.0-0.9) 03/12/22 10:56 Anti-Mitochondrial Ab <20.0 Units (0.0-20.0) 03/12/22 10:56 Anti-Smooth Muscle Ab 17 Units (0-19) 03/12/22 10:56 Hepatitis A IgM Ab Negative (Negative) 03/12/22 10:51 Hep Bs Antigen Negative (Negative) 03/12/22 10:51 Hep Bs Antibody Reactive (.) 03/12/22 10:51 Hep B Core Total Ab Positive (Negative) A 03/12/22 10:51 Hep B Core IgM Ab Negative (Negative) 03/12/22 10:51 Hep B Core IgM Ab Negative (Negative) 03/12/22 10:51 Hepatitis C Antibody <0.1 s/co ratio (0.0-0.9) 03/12/22 10:51 Hepatitis C Interp Comment (.) 03/12/22 10:51 SARS-CoV-2 (PCR) NOT DETECTED 03/12/22 12:20 Sepsis Event Note (H) - Evaluation Current Stage of Sepsis: Ruled out Possible source of Sepsis: negative: GI tract/intra-abdominal
[2022-03-16] MEDS: cefTRIAXone 1 GM in SODIUM CHLORIDE 0.9% MINIBAG 100 ML IV SCH (18:16)
[2022-03-17] MEDS: SODIUM CHLORIDE FLUSH 0.9% 10 ML SYRINGE IVP SCH ×3 (01:21→17:29)
[2022-03-17] MEDS: ZINC OXIDE 20% OINT 30 GM TUBE TOP PRN ×2 (08:40→10:00)
[2022-03-17] MEDS: THIAMINE 100 MG TABLET PO SCH (08:53)
[2022-03-17] MEDS: NEUTRA-PHOS 250 MG TABLET PO SCH ×3 (08:53→17:28)
[2022-03-17] MEDS: CYANOCOBALAMIN 500 MCG TABLET PO SCH (08:53)
[2022-03-17] MEDS: PRENATAL VITAMIN TABLET PO SCH (08:53)
[2022-03-17] MEDS: LACTULOSE 10 GM /15 ML UDC PO SCH (08:53)
[2022-03-17] MEDS: cefTRIAXone 1 GM in SODIUM CHLORIDE 0.9% MINIBAG 100 ML IV SCH (09:03)
[2022-03-17] MEDS: NYSTATIN POWDER 15 GM TOP SCH ×2 (09:15→20:06)
[2022-03-17] MEDS: KETOROLAC 30 MG/ML VIAL IVP PRN ×2 (10:00→22:13)
[2022-03-17] MEDS: SODIUM CHLORIDE FLUSH 0.9% 10 ML SYRINGE IVP PRN (10:00)
--- NOTE | 2022-03-17 12:29 | PROVIDER PROGRESS NOTE ---
Subjective - Prog Note Date Prog Note Date: 03/17/22 Prog Note Time: 12:44 - Subjective Pt reports feeling: Improved Subjective: She is sitting up in a chair, just having eaten breakfast. Still slow, states that back hurts but otherwise stable. Denies abdominal pain, headache, chest pain Current Medications - Current Medications Current Medications: Active Medications Cyanocobalamin (Cyanocobalamin 500 Mcg Tablet) 500 mcg PO DAILY [facility] Last Admin: 03/17/22 08:53 Dose: 500 mcg Ceftriaxone Sodium 1 gm/ (Sodium Chloride) 100 mls @ 200 mls/hr IV DAILY [facility] Last Infusion: 03/17/22 09:35 Dose: Infused Ketorolac Tromethamine (Ketorolac 30 Mg/Ml Vial) 30 mg IVP Q12H PRN PRN Reason: Severe Pain Stop: 03/19/22 15:58 Last Admin: 03/17/22 10:00 Dose: 30 mg Lactulose (Lactulose 10 Gm /15 Ml Udc) 10 gm PO DAILY [facility] Last Admin: 03/17/22 08:53 Dose: 10 gm Lidocaine (Lidocaine Patch 5%) 1 patch TOP DAILY PRN PRN Reason: PAIN Last Admin: 03/14/22 00:44 Dose: 1 patch Multi-Ingredient Ointment (Zinc Oxide 20% Oint 30 Gm Tube) 1 applic TOP PRN PRN PRN Reason: Skin Care Last Admin: 03/17/22 10:00 Dose: 1 applic Nystatin (Nystatin Powder 15 Gm) 1 applic TOP BID [facility] Last Admin: 03/17/22 09:15 Dose: 1 applic Ondansetron HCl (Ondansetron Odt 4 Mg Tablet) 4 mg TL Q6HR PRN PRN Reason: Nausea / Vomiting Ondansetron HCl (Ondansetron 4 Mg/2 Ml Vial) 4 mg IVP Q6HR PRN PRN Reason: Nausea / Vomiting Multivit/Folic Acid/Iron ( Vitamin Tablet) 1 tab PO DAILYWM [facility] Last Admin: 03/17/22 08:53 Dose: 1 tab Prochlorperazine Edisylate (Prochlorperazine 10 Mg/2 Ml Vial) 10 mg IVP Q6HR P RN PRN Reason: Nausea / Vomiting Sodium Chloride (Sodium Chloride Flush 0.9% 10 Ml Syringe) 10 ml IVP PRN PRN PRN Reason: NEEDED PER PROVIDER ORDERS Last Admin: 03/17/22 10:00 Dose: 10 ml Sodium Chloride (Sodium Chloride Flush 0.9% 10 Ml Syringe) 10 ml IVP 0100,0900,1700 [facility] Last Admin: 03/17/22 08:54 Dose: 10 ml Sodium Phosphate (Neutra-Phos 250 Mg Tablet) 250 mg PO TIDWM [facility] Last Admin: 03/17/22 08:53 Dose: 250 mg Thiamine HCl (Thiamine 100 Mg Tablet) 100 mg PO DAILY [facility] Last Admin: 03/17/22 08:53 Dose: 100 mg Calcium Citrate 2 tab PO DAILY 03/12/22 Cholecalciferol [Vitamin D3] 1 tab PO DAILY 03/12/22 Objective - Vital Signs/Intake & Output Reviewed Vital Signs: Yes Vital Signs: Vital Signs x48h Temp Pulse Resp BP Pulse Ox 03/17/22 08:24 36.6 C 92 20 127/73 98 Intake & Output: Intake & Output 03/14/22 03/15/22 03/16/22 03/17/22 23:59 23:59 23:59 23:59 Intake Total 2250 3173.4 2131.333 726.867 Output Total 400 0 0 300 Balance 1850 3173.4 2131.333 426.867 - Objective General Appearance: positive: No acute distress, Lethargic (Still has psychomotor slowing. When I admitted her speech was very slow, thought process also very slow. She has improved from admission to today but not at baseline according to ) Eyes Bilateral: positive: PERRL, EOMI ENT: positive: No signs of dehydration Neck: positive: No JVD. negative: Stiff neck Respiratory: positive: No respiratory distress, Other (Diminished breath sounds at bases, unlabored). negative: Wheezes, Rales, Rhonchi Cardiovascular: positive: Regular rate & rhythm Abdomen: positive: Non-tender, No organomegaly, Nml bowel sounds, Other (5 bowel movements since 7 AM this morning) Skin: positive: Warm, Dry Extremities: positive: Full ROM, No pedal edema Neurologic/Psychiatric: positive: CN's nml (2-12), Disoriented to place, Disoriented to time, Slurred/abnml speech (Hesitant with word finding difficulty). negative: Motor nml (Slow-moving, no focal deficits) - Lab Results Fish Bones: 03/16/22 05:06 03/16/22 05:06 ABX Reporting Has patient been on IV antibiotics over the past 48 hours?: Yes Sepsis Event Note (H) - Evaluation Current Stage of Sepsis: Ruled out Possible source of Sepsis: negative: GI tract/intra-abdominal Assessment/Plan - Problem List (1) Altered mental status Impression: She was readmitted to the hospital 48 hours after discharge. reported that she was weaker, lethargic, was not taking anything in. On admission we felt that she was unable to eat because she had a combination of pancreatitis and liver failure. We think that the encephalopathy is multifactorial in origin. She has liver failure with elevated ammonia level, she is not taking anything by mouth, and MRI of the brain confirms a subacute lacunar infarct. She was also on oxycodone for pain and that may have impacted her during the stay. The differential diagnosis of Warnicke's encephalopathy was also considered and she was treated with high-dose thiamine and a banana bag. She has completed 3 days of high-dose thiamine already. With treatment of all her other medical problems (see below, she has gradually improved. She is more awake but she is pulled out her NG tube twice. She has a flat affect. Slow to respond. She is an inpatient status. However, she is still not strong enough or alert enough to be able to take care of her self. Plan: She has been choiced to a long term facility. Discontinue banana bag and IV thiamine and transition to p.o. supplementation With regards to diminished p.o. intake, we are not pursuing a plan of a PEG tube and we are hoping that she will increase her intake. (2) Hypokalemia Conclusion/Plan: Related to poor p.o. intake for the last 2 weeks at least. Despite having iv potassium replacement daily since here (5 K riders of 10meq 03/15, for example), her potassium remains severely low, was 2.9 yesterday No lab orders for today so those will be ordered. If she is still low, I will supplement again. Continue to check BMP daily. (3) Hematuria Conclusion/Plan: This is a new finding 03/16. Cultures had been done at admission and when her urine cx turned positive 03/15, for E. coli, we asked her if she had any symptoms like dysuria. The patient denied it, thus we considered it a contaminent. However, now we think that the patient is unable to report those kind of symptoms because of her encephalopathy. (4) E coli UTI Conclusion/Plan: Cultures had been done at admission and her urine turned positive yesterday for E. coli. It is pansensitive. Plan: Ceftriaxone Day #2/5 (5) Liver failure Conclusion/Plan: Based on the patients history of alcohol use in the last two years, her liver fa ilure is likely due to alcohol abuse. Additional considerations for acute liver failure include drug use, viral hepatitis, Susanne disease, hemochromatosis, cholangitis, medication side effects. GI recommended getting CBC, PT/PTT, LFTs, CMP, lipase, viral serologies, ceruloplasmin, serum/urine copper, Doppler studies of portal and hepatic veins Qualifiers: Hepatic coma status: without hepatic coma Qualified Code(s): K72.00 - Acute and subacute hepatic failure without coma (6) Cirrhosis of liver Conclusion/Plan: She is presenting with cirrhosis with nonspecific symptoms of anorexia, fatigue, and scleral icterus. Her history is consistent with alcoholic etiology but we also considereded viral hepatitis, autoimmune hepatitis, hemochromatosis, susanne disease, cholangitis. She is negative for ascites, but does have encephalopathy. Her MELD score was 19, a 6.0% mortality in the next 90 days. Abdominal ultrasound showed hepatic echotexture that was diffusely heterogeneous. No focal hepatic mass. No biliary dilatation. Pancreas not well seen. IVC was patent and Doppler showed venous flow to be in the correct direction. Hepatitis panel is positive for hepatitis B core antibody. Her surface antigen is negative, and hepatitis B surface antibody is reactive. MAXIMO interpretation with reflex was all negative. Anti-smooth, anti-Ro, anti-La are all negative. Ceruloplasmin is low at 17. Ferritin not ordered. As such, I wonder if she has had previous infection with hepatitis B and has now recovered. And on top of that she had alcohol abuse is the cause of her cirrhosis. Qualifiers: Hepatic cirrhosis type: alcoholic cirrhosis Ascites presence: without ascites Qualified Code(s): K70.30 - Alcoholic cirrhosis of liver without ascites (7) Alcoholic liver disease Conclusion/Plan: Her history and physical are consistent with alcoholic liver disease. Her MCV is elevated and plts are low, consistent with alcohol abuse. She has said she will never drink again, she will be taking B12, folate and thiamine supplements. Maddrey's score was only 6 points. The GI specialist at [place] recommended giving her steroids, however this is usually only used with a Maddrey score of 32 so at this time we are holding off on administering steroids. (8) Pancreatitis, acute Conclusion/Plan: The history and physical exam are consistent with alcohol induced acute pancreatitis. However initial considerations for the etiology of her pancreatitis included gallstones, hypertriglyceridemia, familial, infection, neoplasm. Her MRCP on 03/08 showed no biliary ductal dilation or evidence of choledocholithiasis. It was positive for acute pancreatitis, hepatic steatosis, abdominal CT on 03/08 confirmed these findings. GI recommended repeat amylase, lipase, and ALT. GI recommended fluid resuscitation with a goal to reduce BUN and Hct over 24hrs. Plan: She was initially on clear liquid diet. She was advanced to a pured hepatic d iet on March 16. IV fluids have been discontinued as of today. We will continue to monitor fluid intake to make sure that she stays hydrated. We will also continue to monitor for any new abdominal pain indicating that pancreatitis has flared Qualifiers: Pancreatitis type: unspecified pancreatitis type Acute pancreatitis complication: unspecified Qualified Code(s): K85.90 - Acute pancreatitis without necrosis or infection, unspecified (9) Back pain Conclusion/Plan: She had been prescribed oxycodone for back pain, which started after a recent fall. At admission, she reported still having pain of the whole spine. Plan: We weaned oxycodone down to off because I suspected it was causing her lethargic altered mental status. With that, she became more alert. We ordered lidocaine topically, which was not enough for pain control. IV Toradol is currently being used and it is helping. But trying to keep it to a minimum since her platelets are low and I worry about affecting her kidneys. We are avoiding narcotics because of the sedation. (10) Hx of stroke (Subacute lacunar infarct) Conclusion/Plan: This is new information obtained from the brain MRI that was done 03/13.Fasting lipid panel showed a triglyceride of 69, cholesterol 92, LDL 70, VLDL 14, HDL 8. Overall this low-cholesterol gives her a poor prognosis with regards to future survivability but does not impact cardiovascular Risk at this time. Plan: Will not start a daily aspirin because of her alcohol abuse causing thrombocytopenia, but also since we have her on NSAIDs for pain control now (11) Hx of gastric bypass Conclusion/Plan: For this reason, she was supposed to have been on B12 for years. She cannot remember, when asked, if she was taking that or not. Plan: resume daily B12
[2022-03-17 12:55] LABS: CALCIUM 7.7 mg/dL (8.5-10.3); CREATININE 0.3 mg/dL (0.4-1.0); POTASSIUM 2.6 mmol/L (3.5-5.0)
[2022-03-17] MEDS: POTASSIUM CHLOR 10 MEQ/100 ML 10 MEQ/100 ML BAG IV SCH ×7 (16:07→23:55)
[2022-03-17] MEDS: LIDOCAINE PATCH 5% TOP PRN (22:13)
[2022-03-18] MEDS: POTASSIUM CHLOR 10 MEQ/100 ML 10 MEQ/100 ML BAG IV SCH (01:14)
[2022-03-18] MEDS: SODIUM CHLORIDE FLUSH 0.9% 10 ML SYRINGE IVP SCH ×4 (01:14→23:22)
[2022-03-18 05:18] LABS: CALCIUM 7.8 mg/dL (8.5-10.3); CREATININE 0.4 mg/dL (0.4-1.0); POTASSIUM 3.1 mmol/L (3.5-5.0)
[2022-03-18] MEDS: CYANOCOBALAMIN 500 MCG TABLET PO SCH (09:00)
[2022-03-18] MEDS: cefTRIAXone 1 GM in SODIUM CHLORIDE 0.9% MINIBAG 100 ML IV SCH (09:00)
[2022-03-18] MEDS: PRENATAL VITAMIN TABLET PO SCH (09:00)
[2022-03-18] MEDS: THIAMINE 100 MG TABLET PO SCH (09:00)
[2022-03-18] MEDS: NEUTRA-PHOS 250 MG TABLET PO SCH ×3 (09:00→16:32)
[2022-03-18] MEDS: LACTULOSE 10 GM /15 ML UDC PO SCH (09:01)
[2022-03-18] MEDS: NYSTATIN POWDER 15 GM TOP SCH ×2 (09:08→21:11)
[2022-03-18] MEDS: ZINC OXIDE 20% OINT 30 GM TUBE TOP PRN ×2 (09:14→15:05)
[2022-03-18] MEDS: KETOROLAC 30 MG/ML VIAL IVP PRN ×2 (09:20→21:10)
[2022-03-18] MEDS: POTASSIUM CHLORIDE 10 MEQ CAPSULE PO SCH (09:20)
[2022-03-18] MEDS: SODIUM CHLORIDE FLUSH 0.9% 10 ML SYRINGE IVP PRN (09:22)
--- NOTE | 2022-03-18 12:22 | PROVIDER PROGRESS NOTE ---
Subjective - Prog Note Date Prog Note Date: 03/18/22 Prog Note Time: 12:19 - Subjective Pt reports feeling: Improved Subjective: She is only on lactulose once a day but is getting up to 7 or 8 bowel movements a day. With that comes hypokalemia and she is needed aggressive potassium riders. Yesterday she received 8 riders and potassium was still slightly low today. She denies any abdominal pain, back pain is controlled. Appetite is not good but she is forcing herself to eat the pured diet. She seems more alert, more interactive than yesterday. Current Medications - Current Medications Current Medications: Active Medications Cyanocobalamin (Cyanocobalamin 500 Mcg Tablet) 500 mcg PO DAILY [facility] Last Admin: 03/18/22 09:00 Dose: 500 mcg Ceftriaxone Sodium 1 gm/ (Sodium Chloride) 100 mls @ 200 mls/hr IV DAILY [facility] Last Infusion: 03/18/22 09:30 Dose: Infused Ketorolac Tromethamine (Ketorolac 30 Mg/Ml Vial) 30 mg IVP Q12H PRN PRN Reason: Severe Pain Stop: 03/19/22 15:58 Last Admin: 03/18/22 09:20 Dose: 30 mg Lactulose (Lactulose 10 Gm /15 Ml Udc) 10 gm PO DAILY [facility] Lidocaine (Lidocaine Patch 5%) 1 patch TOP DAILY PRN PRN Reason: PAIN Last Admin: 03/17/22 22:13 Dose: 1 patch Multi-Ingredient Ointment (Zinc Oxide 20% Oint 30 Gm Tube) 1 applic TOP PRN PRN PRN Reason: Skin Care Last Admin: 03/18/22 09:14 Dose: 1 applic Nystatin (Nystatin Powder 15 Gm) 1 applic TOP BID [facility] Last Admin: 03/18/22 09:08 Dose: 1 applic Ondansetron HCl (Ondansetron Odt 4 Mg Tablet) 4 mg TL Q6HR PRN PRN Reason: Nausea / Vomiting Ondansetron HCl (Ondansetron 4 Mg/2 Ml Vial) 4 mg IVP Q6HR PRN PRN Reason: Nausea / Vomiting Potassium Chloride (Potassium Chloride 10 Meq Capsule) 40 meq PO DAILYWM [facility] Last Admin: 03/18/22 09:20 Dose: 40 meq Multivit/Folic Acid/Iron ( Vitamin Tablet) 1 tab PO DAILYWM [facility] Last Admin: 03/18/22 09:00 Dose: 1 tab Prochlorperazine Edisylate (Prochlorperazine 10 Mg/2 Ml Vial) 10 mg IVP Q6HR PRN PRN Reason: Nausea / Vomiting Sodium Chloride (Sodium Chloride Flush 0.9% 10 Ml Syringe) 10 ml IVP PRN PRN PRN Reason: NEEDED PER PROVIDER ORDERS Last Admin: 03/18/22 09:22 Dose: 10 ml Sodium Chloride (Sodium Chloride Flush 0.9% 10 Ml Syringe) 10 ml IVP 0100,0900,1700 [facility] Last Admin: 03/18/22 09:00 Dose: 10 ml Sodium Phosphate (Neutra-Phos 250 Mg Tablet) 250 mg PO TIDWM [facility] Last Admin: 03/18/22 12:04 Dose: 250 mg Thiamine HCl (Thiamine 100 Mg Tablet) 100 mg PO DAILY [facility] Last Admin: 03/18/22 09:00 Dose: 100 mg Calcium Citrate 2 tab PO DAILY 03/12/22 Cholecalciferol [Vitamin D3] 1 tab PO DAILY 03/12/22 Objective - Vital Signs/Intake & Output Reviewed Vital Signs: Yes Intake & Output: Intake & Output 03/15/22 03/16/22 03/17/22 03/18/22 23:59 23:59 23:59 23:59 Intake Total 3173.4 2131.333 1729.367 648.75 Output Total 0 0 300 Balance 3173.4 2131.333 1429.367 648.75 - Objective General Appearance: positive: No acute distress, Alert Eyes Bilateral: positive: PERRL, EOMI, Other (She has had scleral icterus and it seems to be improved today.) ENT: positive: No signs of dehydration Neck: positive: No JVD. negative: Stiff neck Respiratory: positive: No respiratory distress. negative: Wheezes, Rales, Rhonchi Cardiovascular: positive: Regular rate & rhythm Abdomen: positive: Non-tender, No organomegaly, No distention, Other (Hypoactive) Skin: positive: Warm, Dry Extremities: positive: Full ROM, Pedal edema Neurologic/Psychiatric: positive: Oriented x3, CN's nml (2-12). negative: Motor nml (Still with psychomotor slowing. But she is feeding herself deliberately, without tremor, or past-pointing. Speech is slow and pedantic but she is responding faster) - Lab Results Fish Bones: 03/16/22 05:06 03/18/22 04:50 Other Labs: Lab Results x24hrs 03/18/22 03/18/22 03/17/22 Range/Units 04:50 04:50 12:30 Sodium 133 L (135-145) mmol/L Potassium 3.1 L (3.5-5.0) mmol/L Chloride 105 (101-111) mmol/L Carbon Dioxide 23 (21-32) mmol/L Anion Gap 5.0 L (6-13) BUN 7 (6-20) mg/dL Creatinine 0.4 (0.4-1.0) mg/dL Estimated GFR (MDRD) 161 (>89) Glucose 98 (70-100) mg/dL Calcium 7.8 L (8.5-10.3) mg/dL Ammonia 27.3 28.9 (7-35) umol/L 03/17/22 Range/Units 12:30 Sodium 135 (135-145) mmol/L Potassium 2.6 L (3.5-5.0) mmol/L Chloride 107 (101-111) mmol/L Carbon Dioxide 22 (21-32) mmol/L Anion Gap 6.0 (6-13) BUN 5 L (6-20) mg/dL Creatinine 0.3 L (0.4-1.0) mg/dL Estimated GFR (MDRD) 225 (>89) Glucose 124 H (70-100) mg/dL Calcium 7.7 L (8.5-10.3) mg/dL Ammonia (7-35) umol/L ABX Reporting Has patient been on IV antibiotics over the past 48 hours?: No Sepsis Event Note (H) - Evaluation Current Stage of Sepsis: Ruled out Possible source of Sepsis: negative: GI tract/intra-abdominal Assessment/Plan - Problem List (1) Altered mental status Impression: She is slowly continuing to improve. I admitted her and from that day to today, speech is slowly becoming more normal in cami. Thought process better and clearer. She was readmitted to the hospital 48 hours after discharge. reported that she was weaker, lethargic, was not taking anything in. On admission we felt that she was unable to eat because she had a combination of pancreatitis and liver failure. We think that the encephalopathy is multifactorial in origin. She has liver failure with elevated ammonia level, she is not taking anything by mouth, and MRI of the brain confirms a subacute lacunar infarct. She was also on oxycodone for pain and that may have impacted her during the stay. The differential diagnosis of Warnicke's encephalopathy was also considered and she was treated with high-dose thiamine and a banana bag. She has completed 3 days of high-dose thiamine already. With treatment of all her other medical problems (see below), she is gradually improving. From yesterday to today, better. She is more awake but she has pulled out her NG tube twice. She has a flat affect. Slow to respond. She is an inpatient status. However, she is still not strong enough or alert enough to be able to take care of her self. Plan: [facility] and we are awaiting placement disposition. Discontinued banana bag and IV thiamine on 03/17 and transitioned to p.o. supplementation With regards to diminished p.o. intake, we are not pursuing a plan of a PEG tube and we are hoping that she will increase her intake. (2) Hypokalemia Conclusion/Plan: Related to poor p.o. intake for the last 2 weeks at least. Despite having iv potassium replacement daily since here (5 K riders of 10meq 03/15, 8 K riders 03/17 for example), her potassium remains low, was 2.6 yesterday and after 8 bags, 3.1 today. I will supplement again but with po today. Continue to check BMP daily. Will hold lactulose if > 4 BMs in previous 24 hours. (3) Hematuria Conclusion/Plan: This is a new finding 03/16. Cultures had been done at admission and when her urine cx turned positive 03/15, for E. coli, we asked her if she had any symptoms like dysuria. The patient denied it, thus we considered it a contaminent. However, now we think that the patient is unable to report those kind of symptoms because of her encephalopathy. Had more hematuria 03/17. (4) E coli UTI Conclusion/Plan: Cultures had been done at admission and her urine turned positive yesterday for E. coli. It is pansensitive. Plan: Ceftriaxone Day #3/5 (5) Liver failure Conclusion/Plan: Based on the patients history of alcohol use in the last two years, her liver failure is likely due to alcohol abuse. Additional considerations for acute liver failure include drug use, viral hepatitis, Susanne disease, hemochromatosis, cholangitis, medication side effects. GI recommended getting CBC, PT/PTT, LFTs, CMP, lipase, viral serologies, ceruloplasmin, serum/urine copper, Doppler studies of portal and hepatic veins Our goal with this hospitalization was to get her through the acute phase of illness with her liver failure and pancreatitis. She was not eating, not able to keep p.o. intake up. Once she is through the acute phase of illness, and it appears that she is coming through to that other side, she will then need to follow-up with gastroenterology at tertiary [facility] to find out what her options are. From here, she will need to be placed because she cannot go home yet. She is too weak and too tired to be taken care of by her . But from there, she will return home Qualifiers: Hepatic coma status: without hepatic coma Qualified Code(s): K72.00 - Acute and subacute hepatic failure without coma (6) Cirrhosis of liver Conclusion/Plan: She is presenting with cirrhosis with nonspecific symptoms of anorexia, fatigue, and scleral icterus. Her history is consistent with alcoholic etiology but we also considereded viral hepatitis, autoimmune hepatitis, hemochromatosis, susanne disease, cholangitis. She is negative for ascites, but does have encephalopathy. Her MELD score was 19, a 6.0% mortality in the next 90 days. Abdominal ultrasound showed hepatic echotexture that was diffusely heterogeneous. No focal hepatic mass. No biliary dilatation. Pancreas not well seen. IVC was patent and Doppler showed venous flow to be in the correct direction. Hepatitis panel is positive for hepatitis B core antibody. Her surface antigen is negative, and hepatitis B surface antibody is reactive. MAXIMO interpretation with reflex was all negative. Anti-smooth, anti-Ro, anti-La are all negative. Ceruloplasmin is low at 17. Ferritin not ordered. As such, I wonder if she has had previous infection with hepatitis B and has now recovered. And on top of that she had alcohol abuse is the cause of her cirrhosis. Qualifiers: Hepatic cirrhosis type: alcoholic cirrhosis Ascites presence: without ascites Qualified Code(s): K70.30 - Alcoholic cirrhosis of liver without ascites (7) Alcoholic liver disease Conclusion/Plan: Her history and physical are consistent with alcoholic liver disease. Her MCV is elevated and plts are low, consistent with alcohol abuse. She has said she will never drink again, she will be taking B12, folate and thiamine supplements. Maddrey's score was only 6 points. The GI specialist at [place] recommended giving her steroids, however this is usually only used with a Maddrey score of 32 so at this time we are holding off on administering steroids. BUN and creatinine have stayed stable. Lipase was 80 on March 11, and 66 on March 15. Bilirubin had peaked at 9 with the previous admission. With this admission she started at 6.6. By March 16 she was 4.3. Plan: Currently only a BMP was ordered. We will add liver enzymes to today's BMP. (8) Pancreatitis, acute Conclusion/Plan: The history and physical exam are consistent with alcohol induced acute pancreatitis. However initial considerations for the etiology of her pancreatitis included gallstones, hypertriglyceridemia, familial, infection, neoplasm. Her MRCP on 03/08 showed no biliary ductal dilation or evidence of choledocholithiasis. It was positive for acute pancreatitis, hepatic steatosis, abdominal CT on 03/08 confirmed these findings. GI recommended repeat amylase, lipase, and ALT. GI recommended fluid resuscitation with a goal to reduce BUN and Hct over 24hrs. Plan: She was initially on clear liquid diet. She was advanced to a pured hepatic diet on March 16. IV fluids have been discontinued as of 03/17. She is tolerating her diet even though she does not want to eat. She has no abdominal pain. We will continue to monitor fluid intake to make sure that she stays hydrated. We will also continue to monitor for any new abdominal pain indicating that pancreatitis has flared Qualifiers: Pancreatitis type: unspecified pancreatitis type Acute pancreatitis complication: unspecified Qualified Code(s): K85.90 - Acute pancreatitis without necrosis or infection, unspecified (9) Back pain Conclusion/Plan: She had been prescribed oxycodone for back pain, which started after a recent fall. At admission, she reported still having pain of the whole spine. Plan: We weaned oxycodone down to off because I suspected it was causing her lethargic altered mental status. With that, she became more alert. We ordered lidocaine topically, which was not enough for pain control. IV Toradol is currently being used and it is helping. But trying to keep it to a minimum since her platelets are low and I worry about affecting her kidneys. We are avoiding narcotics because of the sedation. (10) Hx of stroke (Subacute lacunar infarct) Conclusion/Plan: This is new information obtained from the brain MRI that was done 03/13.Fasting lipid panel showed a triglyceride of 69, cholesterol 92, LDL 70, VLDL 14, HDL 8. Overall this low-cholesterol gives her a poor prognosis with regards to future survivability but does not impact cardiovascular Risk at this time. Plan: Will not start a daily aspirin because of her alcohol abuse causing thrombocytopenia, but also since we have her on NSAIDs for pain control now (11) Hx of gastric bypass Conclusion/Plan: For this reason, she was supposed to have been on B12 for years. She cannot re member, when asked, if she was taking that or not. Plan: resume daily B12
[2022-03-18 13:11] LABS: ALBUMIN 1.6 g/dL (3.2-5.5); BILIRUBIN,DIRECT 1.5 mg/dL (0.1-0.5); BILIRUBIN,TOTAL 3.2 mg/dL (0.2-1.0); TOTAL PROTEIN 5.4 g/dL (6.7-8.2)
[2022-03-18] MEDS: LIDOCAINE PATCH 5% TOP PRN (16:32)
[2022-03-19 06:23] LABS: ALBUMIN 1.5 g/dL (3.2-5.5); ALBUMIN/GLOBULIN RATIO 0.4 (1.0-2.2); BILIRUBIN,TOTAL 2.7 mg/dL (0.2-1.0); CALCIUM 7.9 mg/dL (8.5-10.3); CREATININE 0.3 mg/dL (0.4-1.0); MAGNESIUM 1.5 mg/dL (1.7-2.8); PHOSPHORUS 2.6 mg/dL (2.5-4.6); TOTAL PROTEIN 5.1 g/dL (6.7-8.2)
[2022-03-19] MEDS: PRENATAL VITAMIN TABLET PO SCH (08:59)
[2022-03-19] MEDS: NEUTRA-PHOS 250 MG TABLET PO SCH ×3 (08:59→16:45)
[2022-03-19] MEDS: POTASSIUM CHLORIDE 10 MEQ CAPSULE PO SCH (09:00)
[2022-03-19] MEDS: CYANOCOBALAMIN 500 MCG TABLET PO SCH (09:07)
[2022-03-19] MEDS: LACTULOSE 10 GM /15 ML UDC PO SCH (09:07)
[2022-03-19] MEDS: SODIUM CHLORIDE FLUSH 0.9% 10 ML SYRINGE IVP SCH ×3 (09:12→23:40)
[2022-03-19] MEDS: cefTRIAXone 1 GM in SODIUM CHLORIDE 0.9% MINIBAG 100 ML IV SCH (09:16)
[2022-03-19] MEDS: KETOROLAC 30 MG/ML VIAL IVP PRN (09:16)
[2022-03-19] MEDS: NYSTATIN POWDER 15 GM TOP SCH ×2 (09:20→19:16)
[2022-03-19] MEDS: THIAMINE 100 MG TABLET PO SCH (09:23)
[2022-03-19] MEDS: ZINC OXIDE 20% OINT 30 GM TUBE TOP PRN ×3 (09:32→22:07)
[2022-03-19] MEDS: POTASSIUM CHLOR 10 MEQ/100 ML 10 MEQ/100 ML BAG IV SCH ×6 (10:15→17:44)
--- NOTE | 2022-03-19 12:52 | PROVIDER PROGRESS NOTE ---
Subjective - Prog Note Date Prog Note Date: 03/19/22 Prog Note Time: 12:52 - Subjective Pt reports feeling: Improved Subjective: Today Sunni looks much better, her spirits are up. Her appetite is up and she will be taken off a puree diet. She is more alert, interactive and hopeful. She denies abdominal pain and back pain is controlled. Her strength is limited and still needs assistance to get to the bathroom and back to bed. We discussed today that her bloodwork shows a history of Hepatitis B infection. She was unaware of this, we discussed that her liver failure is likely due to a combination of a past hep B infection that may have damaged her liver and the increase in her alcohol intake when covid started. She reaffirmed today that she will never drink again. Current Medications - Current Medications Current Medications: Active Medications Cyanocobalamin (Cyanocobalamin 500 Mcg Tablet) 500 mcg PO DAILY VICK Last Admin: 03/19/22 09:07 Dose: 500 mcg Ceftriaxone Sodium 1 gm/ (Sodium Chloride) 100 mls @ 200 mls/hr IV DAILY VICK Last Infusion: 03/19/22 09:48 Dose: Infused Potassium Chloride (Potassium Chloride) 10 meq in 100 mls @ 100 mls/hr IV Q1H VICK Stop: 03/19/22 13:59 Last Admin: 03/19/22 11:38 Dose: 75 mls/hr Ketorolac Tromethamine (Ketorolac 30 Mg/Ml Vial) 30 mg IVP Q12H PRN PRN Reason: Severe Pain Stop: 03/19/22 15:58 Last Admin: 03/19/22 09:16 Dose: 30 mg Lactulose (Lactulose 10 Gm /15 Ml Udc) 10 gm PO DAILY VICK Last Admin: 03/19/22 09:07 Dose: Not Given Lidocaine (Lidocaine Patch 5%) 1 patch TOP DAILY PRN PRN Reason: PAIN Last Admin: 03/18/22 16:32 Dose: 1 patch Multi-Ingredient Ointment (Zinc Oxide 20% Oint 30 Gm Tube) 1 applic TOP PRN PRN PRN Reason: Skin Care Last Admin: 03/19/22 09:32 Dose: 1 applic Nystatin (Nystatin Powder 15 Gm) 1 applic TOP BID VICK Last Admin: 03/19/22 09:20 Dose: 1 applic Ondansetron HCl (Ondansetron Odt 4 Mg Tablet) 4 mg TL Q6HR PRN PRN Reason: Nausea / Vomiting Last Admin: 03/18/22 20:17 Dose: 4 mg Ondansetron HCl (Ondansetron 4 Mg/2 Ml Vial) 4 mg IVP Q6HR PRN PRN Reason: Nausea / Vomiting Potassium Chloride (Potassium Chloride 10 Meq Capsule) 40 meq PO DAILYWM [facility] Last Admin: 03/19/22 09:00 Dose: 40 meq Multivit/Folic Acid/Iron ( Vitamin Tablet) 1 tab PO DAILYWM [facility] Last Admin: 03/19/22 08:59 Dose: 1 tab Prochlorperazine Edisylate (Prochlorperazine 10 Mg/2 Ml Vial) 10 mg IVP Q6HR PRN PRN Reason: Nausea / Vomiting Sodium Chloride (Sodium Chloride Flush 0.9% 10 Ml Syringe) 10 ml IVP PRN PRN PRN Reason: NEEDED PER PROVIDER ORDERS Last Admin: 03/18/22 09:22 Dose: 10 ml Sodium Chloride (Sodium Chloride Flush 0.9% 10 Ml Syringe) 10 ml IVP 0100,0900,1700 [facility] Last Admin: 03/19/22 09:12 Dose: 10 ml Sodium Phosphate (Neutra-Phos 250 Mg Tablet) 250 mg PO TIDWM [facility] Last Admin: 03/19/22 11:37 Dose: 250 mg Thiamine HCl (Thiamine 100 Mg Tablet) 100 mg PO DAILY [facility] Last Admin: 03/19/22 09:23 Dose: 100 mg Calcium Citrate 2 tab PO DAILY 03/12/22 Cholecalciferol [Vitamin D3] 1 tab PO DAILY 03/12/22 Objective - Vital Signs/Intake & Output Vital Signs: Vital Signs x48h Temp Pulse Resp BP Pulse Ox 03/19/22 07:35 36.2 C L 91 18 119/74 97 Intake & Output: Intake & Output 03/16/22 03/17/22 03/18/22 03/19/22 23:59 23:59 23:59 23:59 Intake Total 2131.333 0808.067 3568.75 1060 Output Total 0 300 400 Balance 2131.333 9270.572 5333.75 660 - Objective General Appearance: positive: No acute distress, Alert Eyes Bilateral: positive: Normal inspection, PERRL, EOMI, No scleral icterus (Her scleral icterus has completely gone away.) ENT: positive: No signs of dehydration Neck: positive: Nml inspection, No JVD. negative: Stiff neck Respiratory: positive: No respiratory distress, Breath sounds nml. negative: Wheezes, Rales, Rhonchi Cardiovascular: positive: Regular rate & rhythm Abdomen: positive: Non-tender, No organomegaly, No distention, Other (hypoactive bowel sounds) Skin: positive: Warm, Dry Extremities: positive: Full ROM, Pedal edema Neurologic/Psychiatric: positive: Oriented x3, CN's nml (2-12), Motor nml (still with psychomotor slowing but she can feed herself deliberatly without tremor or past pointing. Speech is more responsive and not as slow.) - Lab Results Fish Bones: 03/16/22 05:06 03/19/22 05:20 Other Labs: Lab Results x24hrs 03/19/22 03/18/22 Range/Units 05:20 04:50 Sodium 137 (135-145) mmol/L Potassium 3.0 L (3.5-5.0) mmol/L Chloride 108 (101-111) mmol/L Carbon Dioxide 22 (21-32) mmol/L Anion Gap 7.0 (6-13) BUN 6 (6-20) mg/dL Creatinine 0.3 L (0.4-1.0) mg/dL Estimated GFR (MDRD) 225 (>89) Glucose 89 (70-100) mg/dL Calcium 7.9 L (8.5-10.3) mg/dL Phosphorus 2.6 (2.5-4.6) mg/dL Magnesium 1.5 L (1.7-2.8) mg/dL Total Bilirubin 2.7 H 3.2 H (0.2-1.0) mg/dL Direct Bilirubin 1.5 H (0.1-0.5) mg/dL AST 56 H 62 H (10-42) IU/L ALT 42 44 (10-60) IU/L Alkaline Phosphatase 121 128 H (42-121) IU/L Total Protein 5.1 L 5.4 L (6.7-8.2) g/dL Albumin 1.5 L 1.6 L (3.2-5.5) g/dL Globulin 3.6 3.8 (2.1-4.2) g/dL Albumin/Globulin Ratio 0.4 L (1.0-2.2) Prealbumin 4 L (18-45) mg/dL ABX Reporting Has patient been on IV antibiotics over the past 48 hours?: No Sepsis Event Note (H) - Evaluation Current Stage of Sepsis: Ruled out Possible source of Sepsis: negative: GI tract/intra-abdominal Assessment/Plan - Problem List (1) Altered mental status Impression: Impression: Sunni has had great improvement in the last day. Thought process better and clearer. On admission we felt that she was unable to eat because she had a combination of pancreatitis and liver failure. Her appetite has increased and she can stop with a puree diet and move to a low sodium diet. The differential diagnosis of Warnicke's encephalopathy was also considered and she was treated with high-dose thiamine and a banana bag. She has completed 6 days of high-dose thiamine already. With treatment of all her other medical problems (see below), she is gradually improving. From yesterday to today, better. She is more alert and quicker to respond and her affect has improved as well. She is an inpatient status. However, she is still not strong enough to be able to take care of her self. Plan: She has been choiced to a long term facility and we are awaiting placement disposition. Continue po supplementation of thiamine. Discontinue puree diet and switch to normal textured food with low sodium. (2) Hypokalemia Conclusion/Plan: Potassium is still low at 3.0 today. She should continue with K supplement, i expect that if her appetite is increasing now this will help her normalize her p otassium along with supplements. Lactulose was held yesterday and today because she is still having over 4 loose stools per day. However diarrhea is her norm since she had gastric bypass surgery, will continue to monitor. 6 K rider at 10meq today. Continue to check BMP daily. Will hold lactulose if > 4 BMs in previous 24 hours. (3) Hematuria Conclusion/Plan: This is a new finding 03/16. Cultures had been done at admission and when her urine cx turned positive 03/15, for E. coli, we asked her if she had any symptoms like dysuria. The patient denied it, thus we considered it a contaminent. However, now we think that the patient is unable to report those kind of symptoms because of her encephalopathy. Had more hematuria 03/17. (4) E coli UTI Conclusion/Plan: Cultures had been done at admission and her urine turned positive yesterday for E. coli. It is pansensitive. Plan: Ceftriaxone Day #4/5 (5) Liver failure Conclusion/Plan: Based on the patients history of alcohol use in the last two years, her liver failure is likely due to alcohol abuse. Additional considerations for acute liver failure include drug use, viral hepatitis, Anastacio disease, hemochromatosis, cholangitis, medication side effects. GI recommended getting CBC, PT/PTT, LFTs, CMP, lipase, viral serologies, ceruloplasmin, serum/urine copper, Doppler studies of portal and hepatic veins. Her thorough workup revealed a Hep B core antibody reflecting a prior infection. This is likely contributing to her liver damage along with her alcohol abuse. Our goal with this hospitalization was to get her through the acute phase of illness with her liver failure and pancreatitis. It seems as though she will make it through this acute phase of illness but she will still need to be placed for rehab because she cannot go home. She is too weak and cannot be taken care of by her . when she has completed rehab she will return home. Qualifiers: Hepatic coma status: without hepatic coma Qualified Code(s): K72.00 - Acute and subacute hepatic failure without coma (6) Cirrhosis of liver Conclusion/Plan: She is presenting with cirrhosis with nonspecific symptoms of anorexia, fatigue, and scleral icterus. Her history is consistent with alcoholic etiology but we also considereded viral hepatitis, autoimmune hepatitis, hemochromatosis, anastacio disease, cholangitis. She is negative for ascites, but does have encephalopathy. Her MELD score was 19, a 6.0% mortality in the next 90 days. Abdominal ultrasound showed hepatic echotexture that was diffusely heterogeneous. No focal hepatic mass. No biliary dilatation. Pancreas not well seen. IVC was patent and Doppler showed venous flow to be in the correct direction. Hepatitis panel is positive for hepatitis B core antibody. Her surface antigen is negative, and hepatitis B surface antibody is reactive. MAXIMO interpretation with reflex was all negative. Anti-smooth, anti-Ro, anti-La are all negative. Ceruloplasmin is low at 17. Ferritin not ordered. As such, I wonder if she has had previous infection with hepatitis B and has now recovered. And on top of that she had alcohol abuse is the cause of her cirrhosis. Qualifiers: Hepatic cirrhosis type: alcoholic cirrhosis Ascites presence: without ascites Qualified Code(s): K70.30 - Alcoholic cirrhosis of liver without ascites (7) Alcoholic liver disease Conclusion/Plan: Her history and physical are consistent with alcoholic liver disease. Her MCV is elevated and plts are low, consistent with alcohol abuse. She has said she will never drink again, she will be taking B12, folate and thiamine supplements. Maddrey's score was only 6 points. The GI specialist at [facility] recommended giving her steroids, however this is usually only used with a Maddrey score of 32 so at this time we are holding off on administering steroids. BUN and creatinine have stayed stable. Lipase was 80 on March 11, and 66 on March 15. Bilirubin had peaked at 9 with the previous admission. With this admission she started at 6.6. By March 16 she was 4.3. Plan: monitor BNP and Liver enzymes. (8) Pancreatitis, acute Conclusion/Plan: She denies any abdominal pain. She was given fluid resuscitation to reduce BUN and Hct over 24hrs when she was first admitted. Her BUN was at 10 on 03/13 and reduced to 7 in 24 hours. On 03/19 her BUN is 6. Her Hct on 03/13 was 32.8, on 03.14 32.4 and today is 30.9. She can switch today from a puree diet to normal diet. Plan: She has been advanced to a normal diet with low sodium. BUN is within normal limits We will continue to monitor fluid intake to make sure that she stays hydrated. We will also continue to monitor for any new abdominal pain indicating that pancreatitis has flared Qualifiers: Pancreatitis type: unspecified pancreatitis type Acute pancreatitis complication: unspecified Qualified Code(s): K85.90 - Acute pancreatitis without necrosis or infection, unspecified (9) Back pain Conclusion/Plan: Her back pain is controlled. Plan: We weaned oxycodone down to off because I suspected it was causing her lethargic altered mental status. With that, she became more alert. We ordered lidocaine topically, which was not enough for pain control. IV Toradol is currently being used and it is helping. But trying to keep it to a minimum since her platelets are low and I worry about affecting her kidneys. We are avoiding narcotics because of the sedation. (10) Hx of stroke (Subacute lacunar infarct) Conclusion/Plan: This is new information obtained from the brain MRI that was done 03/13.Fasting lipid panel showed a triglyceride of 69, cholesterol 92, LDL 70, VLDL 14, HDL 8. Overall this low-cholesterol gives her a poor prognosis with regards to future survivability but does not impact cardiovascular Risk at this time. Plan: Will not start a daily aspirin because of her alcohol abuse causing thrombocytopenia, but also since we have her on NSAIDs for pain control now (11) Hx of gastric bypass Conclusion/Plan: For this reason, she was supposed to have been on B12 for years. She cannot remember, when asked, if she was taking that or not. Plan: resume daily B12
[2022-03-19] MEDS: LIDOCAINE PATCH 5% TOP PRN (16:29)
--- NOTE | 2022-03-20 07:48 | Discharge Plan ---
"Discharge Plan for SNF / [facility] - Discharge Plan And Transition Orders Problem Reviewed?: Yes Disposition: SNF DC/Xfer Condition: Stable Allergies and Adverse Reactions: Allergies Allergy/AdvReac Type Severity Reaction Status Date / Time No Known Drug Allergies Allergy Verified 03/11/22 20:52 Health Concerns: Ms. Laguna has a history of alcohol abuse of a bottle of wine a day for only a short time of about 2 years since [facility]. Prior to that she had no history of alcohol abuse. She presented to emergency room March 07 because she had fallen down while dog sitting for a friend. She fell outside the friend's house. When she tried to get up her legs would not support her and she had to crawl back inside the house. She was hospitalized March 08 March 10. Found to have chronic pancreatitis and liver failure. Patient said that she never had abdominal pain. As far she was concerned her diarrhea and nausea over the same as they always was in comparison to her previous dumping syndrome for gastric bypass surgery 16 years ago. She was discharged home to recover at home. But returned the next day when she could not get out of bed. She was in the emergency room waiting for a bed March 11 and and finally was able to come to inpatient status March 12. Urine culture grew out E. coli and she was on Rocephin for 3 days. She was supported mainly with IV fluids and antiemetics. Liver failure slowly improved with a peak hemoglobin of 9 and for the time of discharge she is 2.7. 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 We hold her lactulose if she has had more than 4 bowel movements a day before. Appetite slowly improved and she went from not eating anything to clear liquids then a pured to mechanical soft diet and finally a regular diet by the time of discharge. Mentation has definitely improved. She will need frequent checks of her potassium with supplementation. She will need to work with PT and OT to get her strength back up to be able to go home and live independently at home. Work-up for her liver failure during the first and second stay included CTs of the abdomen, ultrasounds of the abdomen, and MRCP. Imaging studies were negative other than for cirrhosis. No ascites. And Doppler flow showed normal hepatopetal flow. Serology work-up showed her to have previous infection with hepatitis B but no current infection. Plan of Treatment: 1. Physical and Occupational Therapy into the patient is able to go from supine to sitting to standing. Walk a few steps with a walker. Be able to feed herself, dress herself. All these are can be required for her to return to home to live independently. 2. The next step is to establish herself with a primary care provider and be referred to gastroenterology for liver failure. 3. Patient states that she will not drink again 4. Because she is a gastric bypass patient, make sure she always has adequate B12 sublingual, folate, thiamine and zinc minerals supplied as nutritional supplements. Care Goals: At this point it is to get through this acute episode of care for liver failure, have her liver heal, and then return back to her normal life. Assessment: Patient is alert, oriented, motivated to follow through. - SNF / [facility] Transition Orders Discharge Diagnosis: 1. Acute and subacute liver failure without coma 2. Cirrhosis of the liver without ascites 3. Alcohol abuse 4. Metabolic encephalopathy, most likely hepatic 5. Hematuria 6. E. coli UTI 7. Chronic diarrhea 8. Hypokalemia 9. Subacute pancreatitis 10. Chronic back pain 11. Subacute lacunar infarct 12. History of gastric bypass Medicare Certification Statement: I certify that [facility] care is medically necessary on a continuing basis for any of the conditions for which she/he is receiving care during hospitalization. Notify PCP of admission and forward orders to primary provider for signature. Weight on admission and: Weekly Other Notification Orders: Call PCP immediately if patient develops dyspnea, chest pain/tightness or edema. House Bowel Program: Yes Additional Bowel Program Orders: If no BM after 2 days, nurse may give M.O.M. 30ml PO PRN and/or ducolax Supp 1 [place] and/or EARLENE 250mg P.O., and/or senna 1-2 tabs PO. On day 3 nurse may give repeat above order until residents constipation is resolved. Annual Influenza Vaccine (between Dec 28 and July 27): Yes Two-step PPD per [facility] [phone] or approved exception documents: Yes Medication Orders: PLEASE REFER TO THE DISCHARGE MEDICATION LIST. Insulin Orders?: No - Diet Type: Geriatric Texture: Regular Liquids: Thin May have monthly special meal: Yes - Therapies | Activity Therapy: Evaluation | Treat if indicated: PT, OT Rehabilitation Potential: Return to independent living Activity: No Restrictions Assistance Devices: Walker"
[2022-03-20] MEDS: cefTRIAXone 1 GM in SODIUM CHLORIDE 0.9% MINIBAG 100 ML IV SCH (08:35)
[2022-03-20] MEDS: POTASSIUM CHLORIDE 10 MEQ CAPSULE PO SCH (08:35)
[2022-03-20] MEDS: PRENATAL VITAMIN TABLET PO SCH (08:35)
[2022-03-20] MEDS: CYANOCOBALAMIN 500 MCG TABLET PO SCH (08:35)
[2022-03-20] MEDS: NEUTRA-PHOS 250 MG TABLET PO SCH (08:35)
[2022-03-20] MEDS: NYSTATIN POWDER 15 GM TOP SCH (08:36)
[2022-03-20] MEDS: SODIUM CHLORIDE FLUSH 0.9% 10 ML SYRINGE IVP SCH (08:36)
[2022-03-20] MEDS: THIAMINE 100 MG TABLET PO SCH (08:36)
[2022-03-20] MEDS: LACTULOSE 10 GM /15 ML UDC PO SCH (08:36)
[2022-03-20 13:06] VITALS: BP 123/68
--- NOTE | 2022-03-20 18:06 | DISCHARGE SUMMARY ---
Discharge Summary Admit Date: 03/12/22 Discharge Date: 03/20/22 Discharging Provider: Amy Peacock MD Primary Care Provider: No PCP Code Status: Do Not Attempt Resuscitation Condition at Discharge: Fair Discharge Disposition: SNF DC/Xfer - DIAGNOSES Discharge Diagnoses with Status of Each Condition: 1. Acute and subacute liver failure without coma 2. Cirrhosis of the liver without ascites 3. Alcohol abuse 4. Metabolic encephalopathy, most likely hepatic 5. Hematuria 6. E. coli UTI 7. Chronic diarrhea 8. Hypokalemia 9. Subacute pancreatitis 10. Chronic back pain 11. Subacute lacunar infarct 12. History of gastric bypass 13 history of hepatitis B infection - HPI History of Present Illness: Sunni is a 61yo female here for generalized weakness. On 03/07 Sunni fell down while trying dog sit for a friend. She fell outside, she was unable to stand on her own and crawled to the front door. She got help from her to stand up, but her legs "felt like marbles". She went to the ED 03/11 because of generalized weakness. She was seen on 03/09 and was diagnosed with liver failure from cirrhosis and pancreatitis. Today she denies abdominal pain but she is getting worse at home. She is not able to eating anything and sometimes feels mildly nauseous but she denies vomiting, chills, fever. She has been feeling fatigued and like she doesn't want to eat for about 3 months. (Amy Peacock) Please refer to the last history and physical for more detail. (Aide Hurley) - Past Medical History Cardiovascular: reports: Hypertension Respiratory: reports: None Neuro: reports: None Endocrine/Autoimmune: reports: None GI: reports: None CUSTOMER RELATIONS ADVISOR: reports: None : reports: Incontinence HEENT: reports: None Psych: reports: None Musculoskeletal: reports: None Derm: reports: Other MRSA Hx?: No - Past Surgical History General: reports: Cholecystectomy - CONSULTS | PROCEDURES Procedures: Abdominal ultrasound showing no acute liver process. 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 Looking for venous flow in the correct direction and it was fine. Chest x-rays done and no acute cardiopulmonary process or pleural effusions. NG tube was in place. Brain MRI done for encephalopathy and sleepiness on admission showed moderate atrophy and trace white matter chronic ischemic changes. Subacute to chronic punctate old lacunar infarct in the left caudate. Hepatitis B core total antibody positive. Hepatitis B surface antibody reactive. Hepatitis a and C-. MAXIMO negative and reflux for antimitochondrial and anti-smooth muscle also negative. Ceruloplasmin normal level. - HOSPITAL COURSE Hospital Course: We will hope that in sending her home she would recover slowly at home with p.o. intake, rest. And no alcohol. However she did not last very long and had to come back because she was so weak and really could not take in enough food. There is no abdominal pain no nausea or vomiting she just had no appetite and became progressively weaker to the point she could not get out of bed. She had subacute liver failure and had a bilirubin of 9 at her previous discharge. All we did was feeder with NG tube. She pulled out the NG twice. She then promised to eat enough food to maintain p.o. intake and she gradually progressed from mechanical soft pured to regular diet. She had no abdominal pain in spite of findings of the pancreatitis on exam. I did consider giving her Creon but again, no abdominal pain. She has chronic diarrhea since her gastric bypass surgery 16 years ago. She does use lactulose but lactulose induces that severe diarrhea and hypokalemia that I cut back the lactulose to be given only when she had less than 4 bowel movements a day. The last 48 hours of her stay were encouraging. Much more alert, able to stand, and walk 3 feet with walker. Her goal is to get strong enough to be able to be independent with feeding herself and dressing herself at home. Bilirubin is starting to come down. LFTs are coming down. BUN and creatinine are stable.Some of her encephalopathy could also be attributed to a subacute infarct that was identified on MRI. She had no focal deficits while here. Plavix and aspirin were not used because of her liver. She needs to establish yourself with a primary care provider and then be referred to gastroenterology for her liver failure and pancreatitis. We noted that she does have a history of hepatitis B and I surmise that she may have had undiagnosed liver damage from hep B, and then with the 1 bottle a day of wine from [employer] the 2 problems coalesce to give her liver failure and pancreatitis. She is discharged in stable condition. Alert, oriented to person place and time. Temperature is 36.5. Heart rate 91. Blood pressure 123/68. Respirations 18. 97% on room air. She is 5 foot tall, 84.5 kg. Her icterus and jaundice have almost completely resolved. Neck is supple. Lungs have diminished breath sounds at the bases with slow, unlabored, respiration and good air movement. Regular rate and rhythm. The abdomen is bloated, soft, hypoactive bowel sounds, and nontender. No rebound or guarding. Extremities have trace edema. Greater than 30 minutes was spent coordinating discharge for [facility]. - ALLERGIES Allergies/Adverse Reactions: Allergies Allergy/AdvReac Type Severity Reaction Status Date / Time No Known Drug Allergies Allergy Verified 03/11/22 20:52 - MEDICATIONS Home Medications: Ambulatory Orders Medication Instructions Recorded Confirmed Nystatin Cream [Mycostatin Cream] 1 applic TOP BID #30 each 03/10/22 03/12/22 methocarbamoL [Robaxin] 500 mg PO Q6HR PRN #30 tab 03/10/22 03/12/22 Calcium Citrate 2 tab PO DAILY 03/12/22 03/12/22 Cholecalciferol [Vitamin D3] 1 tab PO DAILY 03/12/22 03/12/22 Cyanocobalamin [Vitamin B-12] 500 mcg PO DAILY tab 03/20/22 Lidocaine Patch 5% [Lidoderm Patch] 1 patch TOP DAILY PRN patch 03/20/22 Neutra-Phos [K-Phos Neutral] 250 mg PO TIDWM tab 03/20/22 Nystatin [Nystop] 1 applic TOP BID each 03/20/22 Ondansetron Odt [Zofran Odt] 4 mg TL Q6HR PRN tab 03/20/22 Potassium Chloride [Micro-K] 40 meq PO DAILYWM cap 03/20/22 Thiamine [Vitamin B-1] 100 mg PO DAILY tab 03/20/22 Zinc Oxide 20% Oint [Zinc Oxide] 1 applic TOP PRN PRN each 03/20/22 - LABS Result Diagrams: 03/16/22 05:06 03/19/22 05:20 - SEPSIS Current Stage of Sepsis: Ruled out
== END 2022-03-20 11:40 | DRG 441 ==
LOC: EDBD → ED 20:45 → MS2 03-12 12:14 → OBSVTOIN 03-15 08:49
PROVIDERS: ADMIT Specialist; ATTEND Specialist
DX: K72.00 Acute and subacute hepatic failure without coma (principal); K85.90 Acute pancreatitis without necrosis or infection, unspecified; N39.0 Urinary tract infection, site not specified; E46 Unspecified protein-calorie malnutrition; K72.10 Chronic hepatic failure without coma; F10.10 Alcohol abuse, uncomplicated; K76.82 Hepatic encephalopathy; B96.20 Unspecified Escherichia coli [E. coli] as the cause of diseases classified elsewhere; R31.9 Hematuria, unspecified; K52.9 Noninfective gastroenteritis and colitis, unspecified; E87.6 Hypokalemia; G89.29 Other chronic pain; M54.9 Dorsalgia, unspecified; I10 Essential (primary) hypertension; R32 Unspecified urinary incontinence; R63.0 Anorexia; K70.30 Alcoholic cirrhosis of liver without ascites; Z20.822 Contact with and (suspected) exposure to COVID-19; Z68.33 Body mass index [BMI] 33.0-33.9, adult; Z86.19 Personal history of other infectious and parasitic diseases; Z86.73 Personal history of transient ischemic attack (TIA), and cerebral infarction without residual deficits; Z90.49 Acquired absence of other specified parts of digestive tract; Z91.81 History of falling; Z98.0 Intestinal bypass and anastomosis status; Z98.84 Bariatric surgery status
CPT/HCPCS: 36415; 70551; 76705; 80048; 80053; 80061; 80076; 81001; 82103; 82140; 82390; 82784; 83516; 83605; 83690; 83735; 84100; 84134; 84443; 85025; 86015; 86225; 86235; 86381; 86704; 86705; 86706; 86709; 86803; 87040; 87086; 87181; 87340; 87635; 96361; 96365; 96366; 96368; 96375; 97162; 97164; 97166; 97168; 99285; A9270; J3411; J3480; J7040; J7120; Q0162; 81003; 83721

== ENCOUNTER 2022-04-13 10:19 | Outpatient (CLI) | payer OTHER ==
[2022-04-13 11:19] LABS: EOSINOPHILS # (AUTO) 0.1 10^3/uL (0.0-0.7); EOSINOPHILS % (AUTO) 1.6 %; HCT - HEMATOCRIT 36.8 % (37.0-47.0); HGB - HEMOGLOBIN 11.9 g/dL (12.0-16.0); LYMPHOCYTES # (AUTO) 1.9 10^3/uL (1.5-3.5); LYMPHOCYTES % (AUTO) 50.1 %; MEAN CORPUSCULAR HEMOGLOBIN 35.6 pg (27.0-31.0); MEAN CORPUSCULAR HGB CONC 32.3 g/dL (32.0-36.0); MEAN CORPUSCULAR VOLUME 110.2 fL (81.0-99.0); MEAN PLATELET VOLUME 10.4 fL (7.9-10.8); MONOCYTES # (AUTO) 0.5 10^3/uL (0.0-1.0); MONOCYTES % (AUTO) 12.6 %; NEUTROPHILS # (AUTO) 1.3 10^3/uL (1.5-6.6); NEUTROPHILS % (AUTO) 34.7 %; PLT - PLATELET COUNT 195 10^3/uL (130-450); RED BLOOD COUNT 3.34 10^6/uL (4.20-5.40); RED CELL DISTRIBUTION WIDTH 13.4 % (12.0-15.0); WHITE BLOOD COUNT 3.8 x10^3/uL (4.8-10.8)
[2022-04-13 11:42] LABS: THYROID STIMULATING HORMONE 2.94 uIU/mL (0.34-5.60)
[2022-04-13 11:43] LABS: ALBUMIN 2.2 g/dL (3.2-5.5); ALBUMIN/GLOBULIN RATIO 0.6 (1.0-2.2); ALKALINE PHOSPHATASE 83 IU/L (42-121); ALT ALANINE AMINOTRANSFERASE 19 IU/L (10-60); AST ASPARTATE AMINOTRANSFERASE 36 IU/L (10-42); BILIRUBIN,TOTAL 1.3 mg/dL (0.2-1.0); BUN - BLOOD UREA NITROGEN < 5 mg/dL (6-20); CALCIUM 8.2 mg/dL (8.5-10.3); CARBON DIOXIDE - CO2 24 mmol/L (21-32); CHLORIDE 105 mmol/L (101-111); CHOL/HDL RATIO 2.8 (<4.4); CHOLESTEROL 122 mg/dL; CREATININE 0.6 mg/dL (0.4-1.0); GFR - MDRD 101 (>89); GLUCOSE 98 mg/dL (70-100); HDL CHOLESTEROL 44 mg/dL; LDL CHOLESTEROL,CALCULATED 57 mg/dL; LDL/HDL RATIO 1.3 (<4.4); POTASSIUM 2.6 mmol/L (3.5-5.0); SODIUM 139 mmol/L (135-145); TRIGLYCERIDES 106 mg/dL; VLDL CHOLESTEROL 21 mg/dL
== END 2022-04-13 10:20 | disposition home or self-care (01) ==
LOC: LAB 10:19
PROVIDERS: ATTEND Nurse Practitioner
DX: K74.60 Unspecified cirrhosis of liver (principal); I10 Essential (primary) hypertension; Z13.220 Encounter for screening for lipoid disorders; F32.A Depression, unspecified
CPT/HCPCS: 36415; 80053; 80061; 83721; 84443; 85025

== ENCOUNTER 2022-05-10 09:42 | Outpatient (CLI) | payer OTHER ==
[2022-05-10 09:54] LABS: BASOPHILS % (AUTO) 0.6 %; EOSINOPHILS # (AUTO) 0.1 10^3/uL (0.0-0.7); EOSINOPHILS % (AUTO) 1.1 %; HCT - HEMATOCRIT 36.5 % (37.0-47.0); LYMPHOCYTES # (AUTO) 2.5 10^3/uL (1.5-3.5); LYMPHOCYTES % (AUTO) 53.6 %; MEAN CORPUSCULAR HEMOGLOBIN 33.1 pg (27.0-31.0); MEAN CORPUSCULAR HGB CONC 32.9 g/dL (32.0-36.0); MEAN CORPUSCULAR VOLUME 100.8 fL (81.0-99.0); MEAN PLATELET VOLUME 10.4 fL (7.9-10.8); MONOCYTES # (AUTO) 0.5 10^3/uL (0.0-1.0); MONOCYTES % (AUTO) 10.4 %; NEUTROPHILS # (AUTO) 1.6 10^3/uL (1.5-6.6); NEUTROPHILS % (AUTO) 34.1 %; PLT - PLATELET COUNT 175 10^3/uL (130-450); RED BLOOD COUNT 3.62 10^6/uL (4.20-5.40); RED CELL DISTRIBUTION WIDTH 15.6 % (12.0-15.0); WHITE BLOOD COUNT 4.7 x10^3/uL (4.8-10.8)
[2022-05-10 10:16] LABS: ALBUMIN 2.3 g/dL (3.2-5.5); ALBUMIN/GLOBULIN RATIO 0.6 (1.0-2.2); ALKALINE PHOSPHATASE 78 IU/L (42-121); ALT ALANINE AMINOTRANSFERASE 15 IU/L (10-60); AST ASPARTATE AMINOTRANSFERASE 32 IU/L (10-42); BILIRUBIN,TOTAL 1.3 mg/dL (0.2-1.0); BUN - BLOOD UREA NITROGEN 5 mg/dL (6-20); CARBON DIOXIDE - CO2 26 mmol/L (21-32); CHLORIDE 104 mmol/L (101-111); CHOL/HDL RATIO 2.2 (<4.4); CHOLESTEROL 109 mg/dL; CREATININE 0.5 mg/dL (0.4-1.0); GFR - MDRD 125 (>89); GLUCOSE 93 mg/dL (70-100); HDL CHOLESTEROL 49 mg/dL; LDL CHOLESTEROL,CALCULATED 46 mg/dL; LDL/HDL RATIO 0.9 (<4.4); SODIUM 137 mmol/L (135-145); TOTAL PROTEIN 5.9 g/dL (6.7-8.2); TRIGLYCERIDES 71 mg/dL; VLDL CHOLESTEROL 14 mg/dL
[2022-05-10 10:24] LABS: THYROID STIMULATING HORMONE 3.79 uIU/mL (0.34-5.60)
== END 2022-05-10 09:43 | disposition home or self-care (01) ==
LOC: LAB 09:42
PROVIDERS: ATTEND Nurse Practitioner
DX: I10 Essential (primary) hypertension (principal); K74.60 Unspecified cirrhosis of liver; Z13.220 Encounter for screening for lipoid disorders; F32.A Depression, unspecified
CPT/HCPCS: 36415; 80053; 80061; 83721; 84443; 85025

== ENCOUNTER 2022-05-28 10:08 | Outpatient (CLI) | payer OTHER ==
[2022-05-28 10:28] LABS: BASOPHILS % (AUTO) 0.8 %; EOSINOPHILS % (AUTO) 1.1 %; HCT - HEMATOCRIT 37.9 % (37.0-47.0); HGB - HEMOGLOBIN 12.6 g/dL (12.0-16.0); LYMPHOCYTES # (AUTO) 1.9 10^3/uL (1.5-3.5); LYMPHOCYTES % (AUTO) 52.2 %; MEAN CORPUSCULAR HEMOGLOBIN 32.8 pg (27.0-31.0); MEAN CORPUSCULAR HGB CONC 33.2 g/dL (32.0-36.0); MEAN CORPUSCULAR VOLUME 98.7 fL (81.0-99.0); MONOCYTES # (AUTO) 0.5 10^3/uL (0.0-1.0); MONOCYTES % (AUTO) 12.8 %; NEUTROPHILS # (AUTO) 1.2 10^3/uL (1.5-6.6); NEUTROPHILS % (AUTO) 32.8 %; PLT - PLATELET COUNT 168 10^3/uL (130-450); RED BLOOD COUNT 3.84 10^6/uL (4.20-5.40); RED CELL DISTRIBUTION WIDTH 16.5 % (12.0-15.0); WHITE BLOOD COUNT 3.7 x10^3/uL (4.8-10.8)
[2022-05-28 10:36] LABS: INR 1.2 (0.8-1.2); PT - PROTHROMBIN TIME 13.2 secs (9.9-12.6)
[2022-05-28 10:49] LABS: ALBUMIN 2.3 g/dL (3.2-5.5); ALBUMIN/GLOBULIN RATIO 0.6 (1.0-2.2); BILIRUBIN,TOTAL 1.2 mg/dL (0.2-1.0); CALCIUM 8.5 mg/dL (8.5-10.3); CREATININE 0.5 mg/dL (0.4-1.0); MAGNESIUM 1.6 mg/dL (1.7-2.8); POTASSIUM 3.6 mmol/L (3.5-5.0); TOTAL PROTEIN 6.2 g/dL (6.7-8.2)
[2022-05-29 04:08] LABS: HBsAG SCREEN Negative (Negative)
== END 2022-05-28 10:09 | disposition home or self-care (01) ==
LOC: LAB 10:08
PROVIDERS: ATTEND Nurse Practitioner
DX: K74.60 Unspecified cirrhosis of liver (principal); K85.90 Acute pancreatitis without necrosis or infection, unspecified
CPT/HCPCS: 36415; 80053; 82150; 83690; 83735; 85025; 85610; 87340

== ENCOUNTER 2022-06-12 07:47 | Outpatient (CLI) | payer OTHER ==
--- NOTE | 2022-06-12 10:48 | DEXA Report ---
PROCEDURE: Dexa Spine and/or Hip INDICATIONS: POST MENOPAUSAL TECHNIQUE: Dual energy x-ray absorptiometry (DXA) was performed on a [employer] System. Regions measur ed are the AP Spine, femoral neck, and if needed forearm. COMPARISON: None. FINDINGS: Lumbar Spine: Bone Mineral Density 1.184 g/cm/cm, T score 0.0, normal Left Femoral Neck: Bone Mineral Density 0.586 g/cm/cm, T score -3.3, osteoporosis Left Hip: Bone Mineral Density 0.688 g/cm/cm, T score -2.5, osteoporosis (T score greater or equal to -1.0: NORMAL) (T score from -1.1 to -2.4: OSTEOPENIA) (T score less than or equal to -2.5 to: OSTEOPOROSIS) Impression: Left hip osteoporosis Patients with diagnosis of osteoporosis or osteopenia should have regular bone mineral density assess ment. For those eligible for Medicare, routine testing is allowed once every 2 years. Testing frequ ency can be increased for patients who have rapidly progressing disease or for those who are receivin g medical therapy to restore bone mass. Reviewed by: New Ngo MD on 06/12/2022 10:47 AM PST Approved by: New Ngo MD on 06/12/2022 10:47 AM PST Station ID: [id number]
== END 2022-06-12 07:48 | disposition home or self-care (01) ==
LOC: DI 07:47
PROVIDERS: ATTEND Nurse Practitioner
DX: M81.0 Age-related osteoporosis without current pathological fracture (principal); Z78.0 Asymptomatic menopausal state

== ENCOUNTER 2022-07-26 13:54 | Outpatient (CLI) | payer OTHER ==
--- NOTE | 2022-07-27 09:39 | Mammography Report ---
BILATERAL DIGITAL SCREENING MAMMOGRAM 3D/2D: 07/26/2022 CLINICAL: High risk screening. Routine screening. Comparison is made to exams dated: 06/29/2021 mammogram, 05/03/2020 mammogram, and 04/16/2019 mammogram - [facility]. Both breasts are almost entirely fatty (category a/<25% glandular tissue). No significant masses, calcifications, or other findings are seen in either breast. There has been no significant interval change. IMPRESSION: NEGATIVE There is no mammographic evidence of malignancy. A 1 year screening mammogram is recommended. Based on the Tyrer Cuzick model (a risk assessment model) the patients lifetime risk is 6.4% and her 10 year risk is 2.8%. According to the ACR, ACS, and NCCN guidelines, an annual breast MRI exam james g with mammogram is recommended if the patients lifetime risk is 20% or greater. This exam was interpreted at Station ID: [id number]. NOTE: For mammograms, a report in lay terms will be sent to the patient. Approximately 15% of breast malignancies will not be visualized mammographically. In the management of a palpable breast mass, a negative mammogram must not discourage biopsy of a clinically suspicious lesion. Electronically Signed By: Aman garsia/lore:07/26/2022 15:15:31 letter sent: No_Letter ACR BI-RADS Category 1: Negative 3341F PARENCHYMAL PATTERN: (F) - The breast(s) demonstrate(s) diffuse fatty replacement. BI-RADS CATEGORY: (1) - 1 Mammogram [id number] 1 year screening LATERALITY: (B)
== END 2022-07-26 13:55 | disposition home or self-care (01) ==
LOC: DI.N 13:54
DX: Z12.31 Encounter for screening mammogram for malignant neoplasm of breast (principal)

== ENCOUNTER 2022-08-17 11:41 | Outpatient (CLI) | payer OTHER ==
[2022-08-17 11:53] LABS: BASOPHILS # (AUTO) 0.1 10^3/uL (0.0-0.1); BASOPHILS % (AUTO) 0.9 %; EOSINOPHILS # (AUTO) 0.1 10^3/uL (0.0-0.7); EOSINOPHILS % (AUTO) 1.1 %; HCT - HEMATOCRIT 38.3 % (37.0-47.0); HGB - HEMOGLOBIN 12.8 g/dL (12.0-16.0); LYMPHOCYTES # (AUTO) 1.7 10^3/uL (1.5-3.5); LYMPHOCYTES % (AUTO) 24.2 %; MEAN CORPUSCULAR HEMOGLOBIN 35.5 pg (27.0-31.0); MEAN CORPUSCULAR HGB CONC 33.4 g/dL (32.0-36.0); MEAN CORPUSCULAR VOLUME 106.1 fL (81.0-99.0); MEAN PLATELET VOLUME 9.9 fL (7.9-10.8); MONOCYTES # (AUTO) 0.8 10^3/uL (0.0-1.0); NEUTROPHILS # (AUTO) 4.4 10^3/uL (1.5-6.6); NEUTROPHILS % (AUTO) 62.7 %; PLT - PLATELET COUNT 236 10^3/uL (130-450); RED BLOOD COUNT 3.61 10^6/uL (4.20-5.40); RED CELL DISTRIBUTION WIDTH 13.9 % (12.0-15.0)
[2022-08-17 12:08] LABS: ALBUMIN 3.2 g/dL (3.2-5.5); ALBUMIN/GLOBULIN RATIO 0.9 (1.0-2.2); BILIRUBIN,TOTAL 0.7 mg/dL (0.2-1.0); CALCIUM 8.7 mg/dL (8.5-10.3); CREATININE 0.7 mg/dL (0.4-1.0); MAGNESIUM 1.7 mg/dL (1.7-2.8); POTASSIUM 3.7 mmol/L (3.5-5.0); TOTAL PROTEIN 6.7 g/dL (6.7-8.2)
== END 2022-08-17 11:42 | disposition home or self-care (01) ==
LOC: LAB 11:41
PROVIDERS: ATTEND Nurse Practitioner
DX: R19.7 Diarrhea, unspecified (principal)
CPT/HCPCS: 36415; 80053; 83735; 85025